=== PATIENT | female | born 1945 | race Caucasian/White ===

== ENCOUNTER 2018-12-12 23:26 | Inpatient (IN) ==
[2018-12-12] MEDS ORDERED: 0.9 % SODIUM CHLORIDE 1,000 ML IV ONE (23:28)
[2018-12-12 23:40] LABS: POC Blood Urea Nitrogen 46 mg/dl (8-23); POC CO2 28 mmol/L (22-30); POC Calcium, Ionized 1.11 mmol/L (1.16-1.32); POC Chloride 110 mmol/L (96-108); POC Creatinine 2.4 mg/dl (0.6-1.1); POC Glucose, Random 184 mg/dL (70-105); POC Potassium 4.4 mmol/L (3.3-5.1); POC Sodium 149 mmol/L (133-145)
[2018-12-12] MEDS ORDERED: DILTIAZEM 25 MG/5 ML VIAL IV ONE (23:44)
[2018-12-12] MEDS ORDERED: DILTIAZEM 125 MG in DEXTROSE 5% IN WATER 100 ML IV SCH (23:45)
[2018-12-12] MEDS ORDERED: LEVOFLOXACIN 750 MG/150 ML BAG IV ONE (23:47)
[2018-12-12] MEDS ORDERED: VANCOMYCIN 1,500 MG in 0.9 % SODIUM CHLORIDE 500 ML IV ONE (23:47)
--- NOTE | 2018-12-12 23:48 | Emergency Department Note ---
General Adult HPI - General Chief complaint: Shortness of Breath/Dyspnea Stated complaint: found down at home Time Seen by Provider: 12/12/18 23:43 Source: EMS Mode of arrival: EMS Limitations: no limitations - History of Present Illness HPI Narrative: This patient's family had not heard from her in today so they had the please check on her and they had a breakdown the door and found her on the floor. She may been there for 24 hours. She normally uses oxygen but did not have it on at the time. Patient is nonverbal at this time but is awake and can follow some basic commands like squeezing fingers and moving toes. She does have erythema of her right lower leg with warmth. - Related Data Home Medications Medication Instructions Recorded Confirmed blood sugar diagnostic strips 1 strip .ROUTE QIDP PRN 11/01/14 09/23/18 lancets 1 unit .ROUTE .MEDSUPPLY 11/01/14 09/23/18 oxygen-air delivery systems device 5 units INTRANASAL .MEDSUPPLY 11/01/14 09/23/18 Insulin Detemir [Levemir] 15 units SC QAM 01/17/15 09/23/18 methotrexate sodium 5 mg tablet 15 mg PO QWEEK tab 04/29/18 09/23/18 warfarin 3 mg tablet See Rx Instructions PO QDAY tab 04/29/18 09/23/18 Previous Rx's Medication Instructions Recorded front wheeled walker #1 each 03/05/15 Power Mobility WC #1 each 04/03/15 atenolol 25 mg tablet 25 mg PO QDAY #90 tab 07/06/15 blood sugar diagnostic strips See Dose Instructions .ROUTE 10/05/15 .MEDSUPPLY #100 each mometasone 0.1 % topical ointment 1 applic TOPICAL QDAY #45 g 04/01/16 betamethasone, augmented 0.05 % 1 applic TOPICAL BID PRN #135 g 04/02/16 topical ointment nebulizer #1 each 04/04/16 allopurinol 300 mg tablet 300 mg PO QHS #90 tab 06/29/17 bupropion HCl SR 150 mg tablet,12 150 mg PO BID #180 tab 06/29/17 hr sustained-release pramipexole 0.125 mg tablet 0.125 mg PO QDAY #90 tab 06/29/17 pravastatin 10 mg tablet 10 mg PO QDAY #90 tab 06/29/17 spironolactone 25 mg tablet 25 mg PO BID #180 tab 06/29/17 digoxin 250 mcg tablet 250 mcg PO QDAY #90 tab 10/27/17 warfarin 6 mg tablet 6 mg PO QDAY #90 tab 10/27/17 prednisone 10 mg tablet 7.5 mg PO Q2D #90 tab 11/09/17 hydroxyzine HCl 10 mg tablet 10 mg PO QID PRN #90 tab 01/05/18 coal tar 2 % topical ointment 1 applic TOPICAL QDAY #107 g 02/01/18 nystatin 100,000 unit/gram topical 1 applic TOPICAL BID PRN #15 each 02/01/18 powder pilocarpine 5 mg tablet 5 mg PO TID #90 tab 02/03/18 zolpidem 10 mg tablet 10 mg PO QHS #90 tab 02/03/18 hydrocodone 5 mg-acetaminophen 325 1 tab PO Q4H PRN #60 tab 04/16/18 mg tablet carbidopa 25 mg-levodopa 100 mg 1 tab PO QHS #90 tab 04/23/18 tablet furosemide 20 mg tablet 20 mg PO BID #180 tab 04/23/18 levothyroxine 125 mcg tablet 125 mcg PO QDAY #90 tab 04/23/18 losartan 100 1 tab PO QDAY #90 tab 04/23/18 mg-hydrochlorothiazide 25 mg tablet metoclopramide 10 mg tablet 10 mg PO BID #180 tab 04/23/18 pantoprazole 40 mg tablet,delayed 40 mg PO QDAY #90 tab 04/23/18 release albuterol sulfate 1.25 mg/3 mL 1.25 mg INHALATION Q6-8H #360 vial 04/26/18 solution for nebulization insulin glargine (U-100) 100 15 unit SUB-Q .COMPLEX #90 ml 04/28/18 unit/mL (3 mL) subcutaneous pen Disabled parking permit #1 ea 04/29/18 beclomethasone diprop 80 1 puff INHALATION Q12H #10.6 g 04/29/18 mcg/actuation HFA breath activated aerosol empagliflozin 25 mg tablet 25 mg PO QAM #90 tab 04/29/18 insulin lispro (U- 100) 100 See Rx Instructions SUB-Q .COMPLEX 04/29/18 unit/mL subcutaneous pen #105 ml Allergies Allergy/AdvReac Type Severity Reaction Status Date / Time Erythromycin Base AdvReac Mild Nausea Verified 12/13/18 07:08 [From Erythrocin] Review of Systems Limitations: ROS unobtainable due to patients medical condition Past Medical History - Past Medical History FOR[facility] Narrative: Medical History (Last Reviewed 09/23/18 @ 16:49 by OLIVIA Pelayo) Hiatal hernia (Chronic) KATY (obstructive sleep apnea) (Chronic) Right supraspinatus tendinitis (Chronic) Cellulitis (Chronic) Severe sepsis with acute organ dysfunction (Chronic) Diabetes follow-up (Chronic) Ankle fracture, right (Chronic) Low back strain (Chronic) Skin ulcer due to diabetes mellitus (Chronic) Restless leg syndrome (Chronic) Psoriasis (Chronic) Lung disease (Chronic) Hypertension, essential (Chronic) Hyperlipidemia (Chronic) Type 2 diabetes mellitus (Chronic) Cystitides, interstitial, chronic (Chronic) Congestive heart failure (Chronic) Chronic obstruct airways disease (Chronic) Atrial fibrillation (Chronic) Arthritis (Chronic) Anemia (Chronic) Acid reflux (Chronic) Depression (Acute) Hypercholesteremia (Acute) Recurrent infections (Acute) Sleep apnea (Chronic) Anticoagulation excessive (Resolved) Chest pain (Resolved) Chronic bronchitis with acute exacerbation (Resolved) Hematuria of undiagnosed cause (Resolved) Hypercholesterolemia (Resolved) Rheumatic fever (Resolved) Family History (Last Reviewed 09/23/18 @ 16:49 by OLIVIA Pelayo) Sister Malignant neoplasm of cervix Brother Chronic obstructive pulmonary disease Postinflammatory pulmonary fibrosis Unknown Type 2 diabetes mellitus Cardiac disease Medical history: Reports: atrial fibrillation, DM, other (Obstructive sleep apnea) Surgical history ED: Reports: non-contributory - Social History smoking status: Former smoker Alcohol use: Reports: None Physical Exam Limitations: no limitations General appearance: alert Head: atraumatic, normocephalic Eye: Present: PERRL, EOMI ENT: mucous membranes dry Neck: Present: normal inspection Chest: Present: normal inspection Respiratory: Present: normal lung sounds bilaterally Cardiovascular: Present: tachycardia, irregular rhythm, normal heart sounds Abdominal: Present: soft. Absent: distention, tenderness Skin: Present: erythema (Right lower leg) Course Vital Signs Temperature 101.6 F H 12/12/18 23:29 Pulse Rate 136 H 12/12/18 23:29 Respiratory Rate 32 H 12/12/18 23:29 Blood Pressure 176/54 12/12/18 23:29 Pulse Oximetry (%) 100 12/12/18 23:29 Temperature 101.6 F H 12/13/18 07:43 Pulse Rate 93 H 12/13/18 07:43 Respiratory Rate 26 H 12/13/18 07:43 Blood Pressure 142/59 12/13/18 07:31 Pulse Oximetry (%) 96 12/13/18 07:43 Medical Decision Making - MDM Narrative Medical decision making narrative: Patient initially was not very responsive but would follow commands her eyes were open but she had difficulty talking. This time went on she was able to whisper. Still very hard to get any significant history. CT scan of head was negative she does have a CK of 4000 with some renal insufficiency. Most likely prerenal and dehydrated. She does have what appears to be cellulitis of the right lower leg and we did start her on vancomycin and Rocephin after cultures. She will be admitted to the hospital by the hospitalist service. - Lab Data Lab results reviewed: Yes I reviewed the patient's lab results. Result diagrams: 12/13/18 06:42 12/13/18 23:34 Lab Results 12/12/18 12/12/18 12/12/18 Range/Units 23:34 23:34 23:34 WBC 35.6 H* (4.5-11.0) K/mcL RBC 3.36 L (4.00-5.20) M/mcL Hgb 10.0 L (12.0-15.0) g/dL Hct 32.2 L (36.0-48.0) % POC Hct 31.0 L (36.0-48.0) % MCV 95.9 (80.0-100.0) fL MCH 29.6 (26.0-34.0) pg MCHC 30.9 L (31.0-36.0) g/dL RDW 23.7 H (11.5-14.5) % Plt Count 288 (140-440) K/mcL MPV 8.3 (7.4-10.4) fL Total Counted 100 Seg Neutrophils % 90 H (38-78) % Band Neutrophils % 3 (0-10) % Lymphocytes % 2 L (15-49) % Monocytes % (Manual) 5 (1-12) % Platelet Estimate Normal (NORMAL) RBC Morphology Abnorm A (NORMAL) Polychromasia 1+ A (NONE SEEN) Anisocytosis 2+ A (NONE SEEN) PT (11.9-14.5) sec INR (0.9-1.1) VBG Lactic Acid 1.2 (0.5-2.0) mmol/L POC Sodium 149 H (133-145) mmol/L POC Potassium 4.4 (3.3-5.1) mmol/L POC Chloride 110 H (96-108) mmol/L POC Total CO2 28 (22-30) mmol/L POC BUN 46 H (8-23) mg/dl POC Creatinine 2.4 H (0.6-1.1) mg/dl POC Glucose 184 H (70-105) mg/dL POC WB Ioniz Calcium 1.11 L (1.16-1.32) mmol/L Total Creatine Kinase (24-170) IU/L Urine Color Urine Appearance Urine pH (5.0-9.0) Ur Specific [place] (1.000-1.035) Urine Protein (NEG) mg/dL Urine Glucose (UA) (NEG) mg/dL Urine Ketones (NEG) mg/dL Urine Occult Blood (<0.03) mg/dL Urine Nitrate (NEG) Urine Bilirubin (NEG) mg/dL Urine Urobilinogen (NEG) mg/dL Ur Leukocyte Esterase (NEG) /uL Urine RBC (0-1) /hpf Urine WBC (0-4) /hpf Ur Squamous Epith Cells (0-4) /hpf Amorphous Crystals (0) /hpf Urine Bacteria (0) /hpf Hyaline Casts (0-2) /lpf Urine Mucus (0) /hpf Ur Culture Indicated? 12/12/18 12/12/18 12/13/18 Range/Units 23:34 23:34 00:20 WBC (4.5-11.0) K/mcL RBC (4.00-5.20) M/mcL Hgb (12.0-15.0) g/dL Hct (36.0-48.0) % POC Hct (36.0-48.0) % MCV (80.0-100.0) fL MCH (26.0-34.0) pg MCHC (31.0-36.0) g/dL RDW (11.5-14.5) % Plt Count (140-440) K/mcL MPV (7.4-10.4) fL Total Counted Seg Neutrophils % (38-78) % Band Neutrophils % (0-10) % Lymphocytes % (15-49) % Monocytes % (Manual) (1-12) % Platelet Estimate (NORMAL) RBC Morphology (NORMAL) Polychromasia (NONE SEEN) Anisocytosis (NONE SEEN) PT 20.4 H (11.9-14.5) sec INR 1.8 H (0.9-1.1) VBG Lactic Acid (0.5-2.0) mmol/L POC Sodium (133-145) mmol/L POC Potassium (3.3-5.1) mmol/L POC Chloride (96-108) mmol/L POC Total CO2 (22-30) mmol/L POC BUN (8-23) mg/dl POC Creatinine (0.6-1.1) mg/dl POC Glucose (70-105) mg/dL POC WB Ioniz Calcium (1.16-1.32) mmol/L Total Creatine Kinase 4626 H (24-170) IU/L Urine Color Yellow Urine Appearance Clear Urine pH 6.0 (5.0-9.0) Ur Specific [place] 1.018 (1.000-1.035) Urine Protein 100 A (NEG) mg/dL Urine Glucose (UA) >=500 A (NEG) mg/dL Urine Ketones 5/tr A (NEG) mg/dL Urine Occult Blood >=1.0 A (<0.03) mg/dL Urine Nitrate Neg (NEG) Urine Bilirubin Neg (NEG) mg/dL Urine Urobilinogen Neg (NEG) mg/dL Ur Leukocyte Esterase Neg (NEG) /uL Urine RBC 2 H (0-1) /hpf Urine WBC 3 (0-4) /hpf Ur Squamous Epith Cells < 1 (0-4) /hpf Amorphous Crystals Few A (0) /hpf Urine Bacteria 0 (0) /hpf Hyaline Casts 2 (0-2) /lpf Urine Mucus Few (0) /hpf Ur Culture Indicated? No - Radiology Data Radiology results reviewed: Yes I reviewed the patient's radiology results. Disposition Pt seen by BENDING MACHINE SET UP OPERATOR/PA only: No Clinical Impression: Cellulitis, Rhabdomyolysis Atrial fibrillation Qualifiers: Atrial fibrillation type: persistent Qualified Code(s): I48.1 - Persistent atrial fibrillation Disposition: Xfer As Inpt ([facility])
[2018-12-13 00:24] LABS: Hematocrit 32.2 % (36.0-48.0); Mean Cell Volume 95.9 fL (80.0-100.0); Mean Corpuscular HGB Conc 30.9 g/dL (31.0-36.0); Mean Platelet Volume 8.3 fL (7.4-10.4); Platelet Count 288 K/mcL (140-440); RBC 3.36 M/mcL (4.00-5.20); Red Cell Distribution Width 23.7 % (11.5-14.5); WBC 35.6 K/mcL (4.5-11.0)
[2018-12-13] MEDS ORDERED: 0.9 % SODIUM CHLORIDE 1,000 ML IV ONE (00:29)
[2018-12-13 00:49] LABS: INR 1.8 (0.9-1.1); Prothrombin Time 20.4 sec (11.9-14.5)
[2018-12-13 00:56] LABS: Anisocytosis 2+ (NONE SEEN); Band Neutrophils % 3 % (0-10); Lymphocytes % 2 % (15-49); Monocytes % (Manual) 5 % (1-12); Platelet Estimate NORMAL (NORMAL); Polychromasia 1+ (NONE SEEN); RBC Morphology ABNORM (NORMAL); Segmented Neutrophils % 90 % (38-78)
[2018-12-13 01:02] LABS: Appearance,Urine CLEAR; Bacteria,Urine 0 /hpf (0); Bilirubin,Urine NEG (NEG); Color,Urine YELLOW; Culture Indicated,Urine NO; Glucose,Urine (UA) >=500 mg/dL (NEG); Ketones,Urine 5/TR mg/dL (NEG); Leukocyte Esterase,Urine NEG /uL (NEG); Mucus,Urine FEW /hpf (0); Nitrate,Urine NEG (NEG); Protein,Urine 100 mg/dL (NEG); Specific Gravity,Urine 1.018 (1.000-1.035); Urine Amorphous Crystals FEW /hpf (0); Urine Blood >=1.0 mg/dL (<0.03); Urine Hyaline Cast 2 /lpf (0-2); Urine RBC 2 /hpf (0-1); Urine Squamous Epithelial Cell < 1 /hpf (0-4); Urine WBC 3 /hpf (0-4); Urobilinogen,Urine NEG (NEG)
[2018-12-13 02:56] LABS: ALT/SGPT 39 U/l (0-40); AST/SGOT 145 U/l (0-37); Albumin 3.7 gm/dL (3.2-5.2); Albumin/Globulin Ratio 0.9 (1.0-2.3); Alkaline Phosphatase 117 U/L (39-117); Bilirubin,Total 0.6 mg/dL (0.0-1.0); Blood Urea Nitrogen 48 mg/dl (8-23); Calcium 9.5 mg/dl (8.6-10.4); Carbon Dioxide 23 mmol/L (22-30); Chloride 107 mmol/L (96-108); Globulin 3.9 gm/dL (2.2-3.7); Glomerular Filtration Rate 25; Glucose 176 mg/dL (70-105)
[2018-12-13] MEDS ORDERED: DILTIAZEM 125 MG/25 ML VIAL IV ONE (05:42)
[2018-12-13] MEDS ORDERED: IPRATROPIUM/ALBUTEROL 3 ML AMPUL.NEB NEB ONE (05:51)
[2018-12-13] MEDS ORDERED: PIPERACILLIN SODIUM/TAZOBACTAM 3.375 GM in DEXTROSE 5% IN WATER 50 ML IV SCH (06:00)
[2018-12-13] MEDS ORDERED: LABETALOL 5 MG/ML ML IV PRN ×2 (06:17→09:21)
[2018-12-13] MEDS ORDERED: ACETAMINOPHEN 650 MG/65 ML BOTTLE IV PRN (06:17)
[2018-12-13] MEDS ORDERED: hydrALAZINE 20 MG/ML VIAL IV PRN ×2 (06:17→06:18)
[2018-12-13] MEDS ORDERED: METOPROLOL TARTRATE 5 MG/5 ML VIAL IV PRN ×2 (06:20→09:21)
[2018-12-13] MEDS ORDERED: 0.9 % SODIUM CHLORIDE 1,000 ML IV SCH (07:00)
--- NOTE | 2018-12-13 07:01 | Internal Med History&Physical ---
Medical - H&P: [facility] Patient information: Note initiated : 12/13/18 at 6:47 am Service Date, if different from initiated Date: [] Patient: Mayra Blood 72 y/o F admitted on 12/13/18 for found down at home. Chief Complaint: [] History of present illness: Ms. Blood is a 72 year old F Whose family had not heard from her during the day so they had the police check on her and she was found down on the floor. It was felt she likely benefit 24 hours. She is normally on oxygen but did not have her oxygen on. Heart rate was 140 she has a history of A. fib and EMS had a temperature 101.6. In the ED she was evaluated she is nonverbal but awake and follows basic commands and also was noted to have erythema of her right lower extremity (of note she has had right lower extremity cellulitis in the past with sepsis on an inpatient note from the January 2015). History is difficult to obtain from patient. Sounds like she lives with her sister but she did state that her sister is out of town. Patient does not not remember where she fell in the house or when. Denies any hip or leg pain. Denies fever chills chest pain shortness of breath coughing. Right lower leg is red and she had a history of cellulitis treated in that right leg before 4 years ago. But she denies any tenderness in that leg. And it looks more chronic acute cellulitic. Patient states her right lower extremity is always red. She is slow to answer but does answer most questions and whisper. In the ED she was found to have been myelolysis and acute kidney injury and a leukocytosis. Review of Systems: Pertinent positives as above. Denies headache/fever/chills/nausea/vomiting/chest or abdominal pain/cough/dyspnea/diar yue. Remaining 10 point review of system reviewed negative Medical - H&P: PMH Medical history: Medical History (Last Reviewed 09/23/18 @ 16:49 by OLIVIA Pelayo) Hiatal hernia (Chronic) KATY (obstructive sleep apnea) (Chronic) Right supraspinatus tendinitis (Chronic) Cellulitis (Chronic) Severe sepsis with acute organ dysfunction (Chronic) Diabetes follow-up (Chronic) Ankle fracture, right (Chronic) Low back strain (Chronic) Skin ulcer due to diabetes mellitus (Chronic) Restless leg syndrome (Chronic) Psoriasis (Chronic) Lung disease (Chronic) Hypertension, essential (Chronic) Hyperlipidemia (Chronic) Type 2 diabetes mellitus (Chronic) Cystitides, interstitial, chronic (Chronic) Congestive heart failure (Chronic) Chronic obstruct airways disease (Chronic) Atrial fibrillation (Chronic) Arthritis (Chronic) Anemia (Chronic) Acid reflux (Chronic) Depression (Acute) Hypercholesteremia (Acute) Recurrent infections (Acute) Sleep apnea (Chronic) Anticoagulation excessive (Resolved) Chest pain (Resolved) Chronic bronchitis with acute exacerbation (Resolved) Hematuria of undiagnosed cause (Resolved) Hypercholesterolemia (Resolved) Rheumatic fever (Resolved) Past surgical history: She could not tell me about any surgeries Family History (Last Reviewed 09/23/18 @ 16:49 by OLIVIA Pelayo) Sister Malignant neoplasm of cervix Brother Chronic obstructive pulmonary disease Postinflammatory pulmonary fibrosis Unknown Type 2 diabetes mellitus Cardiac disease Social history: Distant smoker Tonight denies alcohol use Denies using cane or walker at home Lives at home with her sister but states her sister is out of town Medical - H&P: Meds Home Medications Medication Instructions Recorded Confirmed Type blood sugar diagnostic strips 1 strip .ROUTE QIDP PRN 11/01/14 09/23/18 History lancets 1 unit .ROUTE .MEDSUPPLY 11/01/14 09/23/18 History oxygen-air delivery systems device 5 units INTRANASAL .MEDSUPPLY 11/01/14 05/0 02/03 History Insulin Detemir [Levemir] 15 units SC QAM 01/17/15 09/23/18 History front wheeled walker #1 each 03/05/15 09/23/18 Rx Power Mobility WC #1 each 04/03/15 09/23/18 Rx atenolol 25 mg tablet 25 mg PO QDAY #90 tab 07/06/15 09/23/18 Rx blood sugar diagnostic strips See Dose Instructions .ROUTE 10/05/15 09/23/18 Rx .MEDSUPPLY #100 each mometasone 0.1 % topical ointment 1 applic TOPICAL QDAY #45 g 04/01/16 09/23/18 Rx betamethasone, augmented 0.05 % 1 applic TOPICAL BID PRN #135 g 04/02/16 09/23/18 Rx topical ointment nebulizer #1 each 04/04/16 09/23/18 Rx allopurinol 300 mg tablet 300 mg PO QHS #90 tab 06/29/17 09/23/18 Rx bupropion HCl SR 150 mg tablet,12 150 mg PO BID #180 tab 06/29/17 09/23/18 Rx hr sustained-release pramipexole 0.125 mg tablet 0.125 mg PO QDAY #90 tab 06/29/17 09/23/18 Rx pravastatin 10 mg tablet 10 mg PO QDAY #90 tab 06/29/17 09/23/18 Rx spironolactone 25 mg tablet 25 mg PO BID #180 tab 06/29/17 09/23/18 Rx digoxin 250 mcg tablet 250 mcg PO QDAY #90 tab 10/27/17 09/23/18 Rx warfarin 6 mg tablet 6 mg PO QDAY #90 tab 10/27/17 09/23/18 Rx prednisone 10 mg tablet 7.5 mg PO Q2D #90 tab 11/09/17 09/23/18 Rx hydroxyzine HCl 10 mg tablet 10 mg PO QID PRN #90 tab 01/05/18 09/23/18 Rx coal tar 2 % topical ointment 1 applic TOPICAL QDAY #107 g 02/01/18 09/23/18 Rx nystatin 100,000 unit/gram topical 1 applic TOPICAL BID PRN #15 each 02/01/18 09/23/18 Rx powder pilocarpine 5 mg tablet 5 mg PO TID #90 tab 02/03/18 09/23/18 Rx zolpidem 10 mg tablet 10 mg PO QHS #90 tab 02/03/18 09/23/18 Rx hydrocodone 5 mg-acetaminophen 325 1 tab PO Q4H PRN #60 tab 04/16/18 09/23/18 Rx mg tablet carbidopa 25 mg-levodopa 100 mg 1 tab PO QHS #90 tab 04/23/18 09/23/18 Rx tablet furosemide 20 mg tablet 20 mg PO BID #180 tab 04/23/18 09/23/18 Rx levothyroxine 125 mcg tablet 125 mcg PO QDAY #90 tab 04/23/18 09/23/18 Rx losartan 100 1 tab PO QDAY #90 tab 04/23/18 09/23/18 Rx mg-hydrochlorothiazide 25 mg tablet metoclopramide 10 mg tablet 10 mg PO BID #180 tab 04/23/18 09/23/18 Rx pantoprazole 40 mg tablet,delayed 40 mg PO QDAY #90 tab 04/23/18 09/23/18 Rx release albuterol sulfate 1.25 mg/3 mL 1.25 mg INHALATION Q6-8H #360 vial 04/26/18 09/23/18 Rx solution for nebulization insulin glargine (U-100) 100 15 unit SUB-Q .COMPLEX #90 ml 04/28/18 09/23/18 Rx unit/mL (3 mL) subcutaneous pen Disabled parking permit #1 ea 04/29/18 09/23/18 Rx beclomethasone diprop 80 1 puff INHALATION Q12H #10.6 g 04/29/18 09/23/18 Rx mcg/actuation HFA breath activated aerosol empagliflozin 25 mg tablet 25 mg PO QAM #90 tab 04/29/18 09/23/18 Rx insulin lispro (U- 100) 100 See Rx Instructions SUB-Q .COMPLEX 04/29/18 09/23/18 Rx unit/mL subcutaneous pen #105 ml methotrexate sodium 5 mg tablet 15 mg PO QWEEK tab 04/29/18 09/23/18 History warfarin 3 mg tablet See Rx Instructions PO QDAY tab 04/29/18 09/23/18 History Allergies Allergy/AdvReac Type Severity Reaction Status Date / Time Erythromycin Base AdvReac Mild Nausea Verified 12/13/18 07:08 [From Erythrocin] Medical - H&P: Exam - Constitutional Vitals: Temp Pulse Resp BP Pulse Ox 102.4 F H 112 H 39 H 182/70 96 12/13/18 06:36 12/13/18 06:36 12/13/18 06:36 12/13/18 06:31 12/13/18 06:36 Exam: General: Alert, Awake, No acute Distress, obese Eyes/N/T: EOMI, PEERL, DMM Head/Neck: neck supple, normocephalic atraumatic CV: RRR, No murmurs, normal s1/s2 Pulm: Fine bibasilar rales, no wheezing Abd: soft, nontender, +BS x4 Ext: no clubbing/cyanosis/edema. Right lower extremity with erythema but is not indurated/swollen/or tender, appears chronic in nature. Neuro: Alert, no focal deficits, moves all extremities, CN 2-12 grossly intact, symmetrical strength b/l upper/lower, sensations intact b/l upper/lower Skin: warm/dry Medical - H&P: Reslt - Labs CBC & Chem 7: 12/13/18 06:42 12/13/18 23:34 Labs: Short CBC 12/12/18 Range/Units 23:34 WBC 35.6 H* (4.5-11.0) K/mcL Hgb 10.0 L (12.0-15.0) g/dL Hct 32.2 L (36.0-48.0) % Plt Count 288 (140-440) K/mcL BMP 12/13/18 23:34 Sodium 148 H Potassium 5.0 Chloride 107 Carbon Dioxide 23 BUN 48 H Creatinine 2.0 H Glucose 176 H Calcium 9.5 Cardiac Enzymes 12/12/18 Range/Units 23:34 Total Creatine Kinase 4626 H (24-170) IU/L Liver Function 12/13/18 Range/Units 23:34 Total Bilirubin 0.6 (0.0-1.0) mg/dL AST 145 H (0-37) U/l ALT 39 (0-40) U/l Alkaline Phosphatase 117 (39-117) U/L Albumin 3.7 (3.2-5.2) gm/dL Urine 12/13/18 Range/Units 00:20 Urine Color Yellow Urine Appearance Clear Urine pH 6.0 (5.0-9.0) Ur Specific [place] 1.018 (1.000-1.035) Urine Protein 100 A (NEG) mg/dL Urine Glucose (UA) >=500 A (NEG) mg/dL - Impressions Chest x-ray with bilateral infiltrates, similar image of previous x-rays. patient does have history of interstitial lung disease Medical - H&P: A/P - Narrative A/P Narrative: A: *Fall at home, unwitnessed: *Rhabdomyolysis: 2/2 above with prolonged downtime *Hypernatremia/dehydration: *Fever: 2/2 rhabdo *MARILYN on CKD IIIb (base Cr~1.6): 2/2 above *RLE chronic erythema: Not tender/indurated/swollen, patient stated leg always red -does not look cellulitic, no compartment syndrome *Anemia, chronic: *Volume Depletion: *Generalized weakness/debility/deconditioning *KATY on BiPAP at night: *COPD (? L NC @home)/ILD: Follows with Dr. Long. Steroid-dependent *Immunosuppression, chronic steroids: *Psoriasis: on MTX *Parkinson's: *DM: *Afib w/RVR: on BB/Warfarin/Dig *HTN/HLD: ARB/BB *Morbid obesity: *Depression/anxiety *GERD: *Hypothyroid: *Chronic leukocytosis: Elevated above baseline, no bandemia P: -IVF's, NS in ED, now 1/2NS, f/u Na -monitor UOP/renal fxn -wean off dilt gtt to home meds -empiric Abx pending BC and PCT -cont steroids(will give stress dose) -cont BB/Dig -hold ARB/diuretics for MARILYN and volume depletion -home o2 with home bipap @night, Nebs -basal insulin and SSI -awaiting home med clarification -pt/ot -ppx: warfarin per pharm/home ppi
[2018-12-13] MEDS ORDERED: ALBUTEROL SULFATE 2.5 MG/3 ML NEBULIZER ONE (07:02)
[2018-12-13] MEDS ORDERED: 0.45 % SODIUM CHLORIDE 1,000 ML IV SCH (07:15)
[2018-12-13] MEDS ORDERED: INSULIN LISPRO 1 UNIT/0.01 ML UNIT SQ SCH (07:30)
[2018-12-13 07:32] LABS: Hematocrit 30.4 % (36.0-48.0); Hemoglobin 9.5 g/dL (12.0-15.0); Mean Cell Volume 95.5 fL (80.0-100.0); Mean Corpuscular HGB Conc 31.3 g/dL (31.0-36.0); Mean Platelet Volume 8.7 fL (7.4-10.4); Platelet Count 245 K/mcL (140-440); RBC 3.18 M/mcL (4.00-5.20); Red Cell Distribution Width 23.7 % (11.5-14.5); WBC 31.7 K/mcL (4.5-11.0)
--- NOTE | 2018-12-13 07:44 | XRay Report ---
CLINICAL INFORMATION: sob COMPARISON: 01/19/2015 FINDINGS: Moderate cardiomegaly is unchanged. Mediastinum is unremarkable. Pulmonary vessels are slightly distended. Mild interstitial disease in the mid /lower lung jefferson as within seen on prior examinations likely represents minor fibrosis rather than edema. There is minor atelectasis or scarring in the right base. Probable small right pleural effusion. IMPRESSION: Borderline CHF or volume overload. Interpreted and Authenticated by: Brett Martínez 12/13/18
[2018-12-13 07:46] LABS: Digoxin 0.7 ng/mL
--- NOTE | 2018-12-13 07:55 | XRay Report ---
CLINICAL INFORMATION: Shortness of breath COMPARISON: 12/13/2018 and 01/19/2015 FINDINGS: Moderate cardiomegaly is unchanged. Mediastinum is unremarkable. Pulmonary vessels are moderately distended and there is mild interstitial edema throughout both lungs. Minor airspace disease in the bases has progressed likely representing atelectasis or developing aspiration pneumonia. Small bilateral pleural effusions noted IMPRESSION: 1. Moderate CHF 2. Moderate patchy bibasilar atelectasis and/or developing infiltrate. Interpreted and Authenticated by: Brett Martínez 12/13/18
[2018-12-13 08:09] LABS: Anisocytosis 2+ (NONE SEEN); Hypochromasia FEW (NONE SEEN); Lymphocytes % 1 % (15-49); Monocytes % (Manual) 3 % (1-12); Nucleated Red Blood Cells 1 % (0-0); Platelet Estimate NORMAL (NORMAL); Polychromasia FEW (NONE SEEN); RBC Morphology ABNORM (NORMAL); Segmented Neutrophils % 96 % (38-78)
[2018-12-13] MEDS ORDERED: HYDROCORTISONE SOD SUCC 100 MG VIAL IV ONE (08:25)
[2018-12-13 08:28] LABS: INR 2.1 (0.9-1.1); Prothrombin Time 23.4 sec (11.9-14.5)
--- NOTE | 2018-12-13 08:29 | Cat Scan Report ---
CLINICAL INFORMATION: Trauma] on anticoagulation COMPARISON: None. TECHNIQUE: 2.5 mm helical slices were obtained in the skull base to vertex. Following reconstruction, axial reformatted images were reviewed at bone and parenchymal windows. The exam was performed using radiation dose optimization techniques including, but not limited to, automated exposure control, adjustment of the mA and/or kV according to patient size and use of iterative reconstruction technique. FINDINGS: The ventricles, sulci, fissures, and cisterns are symmetrically enlarged compatible with moderate age-related atrophy - no subdural hemorrhage or other extra-axial fluid collection appreciated. Mild patchy chronic ischemic changes in the deep cerebral white matter expected are for age. There are also scattered remote lacunar infarcts in the basal ganglia and internal capsule regions. There is no intracerebral hemorrhage, mass effect, edema or other posttraumatic/acute change. A 15.7 mm well-circumscribed partially calcified nodule in the left frontoparietal scalp region, near vertex, is almost certainly a benign partially calcified cyst. Moderate degenerative change in the right TMJ appreciated - no other osseous abnormality. IMPRESSION: Moderate atrophy and chronic ischemic changes in that the cerebral white matter - expected for age. Scattered remote lacunar infarcts in basal ganglia and internal capsule. There is no intracerebral hemorrhage or other posttraumatic change 15.7 mm partially calcified cystic lesion in the left frontoparietal scalp near vertex. This should be obvious clinically. If clinically indicated, it could be excised by general surgery. Moderate degeneration - right TMJ Tiny air-fluid level in sphenoid sinus compatible with mild sinusitis Interpreted and Authenticated by: Brett Martínez 12/13/18
[2018-12-13 08:44] LABS: ALT/SGPT 39 U/l (0-40); AST/SGOT 142 U/l (0-37); Albumin 3.1 gm/dL (3.2-5.2); Albumin/Globulin Ratio 0.8 (1.0-2.3); Alkaline Phosphatase 81 U/L (39-117); Bilirubin,Direct < 0.2 mg/dL (0.0-0.3); Bilirubin,Total 0.4 mg/dL (0.0-1.0); Blood Urea Nitrogen 43 mg/dl (8-23); Calcium 8.8 mg/dl (8.6-10.4); Carbon Dioxide 23 mmol/L (22-30); Chloride 113 mmol/L (96-108); Globulin 3.7 gm/dL (2.2-3.7); Glomerular Filtration Rate 28; Glucose 178 mg/dL (70-105); Lactate Dehydrogenase 372 U/L (94-250); Phosphorous 3.9 mg/dL (2.7-4.5); Triglycerides 210 mg/dl (<150); Uric Acid 8.1 mg/dL (2.5-8.0)
[2018-12-13] MEDS ORDERED: POLYETHYLENE GLYCOL 3350 17 GM PACKET PO PRN (09:21)
[2018-12-13] MEDS ORDERED: SENNOSIDES 1 TABLET PO PRN (09:21)
[2018-12-13] MEDS ORDERED: POTASSIUM CHLORIDE 40 MEQ in DEXTROSE 5% IN WATER 500 ML IV PRN (09:21)
[2018-12-13] MEDS ORDERED: IPRATROPIUM/ALBUTEROL 3 ML AMPUL.NEB NEB PRN (09:21)
[2018-12-13] MEDS ORDERED: PROCHLORPERAZINE 10 MG/2 ML VIAL IV PRN (09:21)
[2018-12-13] MEDS ORDERED: MAGNESIUM SULFATE 2 GM/50 ML BAG IV PRN (09:21)
[2018-12-13] MEDS ORDERED: POTASSIUM CHLORIDE 20 MEQ TABLET PO PRN ×2 (09:21)
[2018-12-13] MEDS ORDERED: LACTULOSE 20 GM/30 ML ORAL.SOL PO PRN (09:21)
[2018-12-13] MEDS ORDERED: ONDANSETRON 4 MG/2 ML VIAL IV PRN (09:21)
[2018-12-13] MEDS ORDERED: HYDROcodone/APAP 5/325MG TABLET PO PRN (10:13)
[2018-12-13] MEDS ORDERED: VANCOMYCIN PER PHARMACY IV SCH (10:16)
[2018-12-13] MEDS: DEXTROSE 5% IN WATER 1,000 ML IV SCH ×2 (10:16→20:05)
[2018-12-13] MEDS ORDERED: ALBUTEROL SULFATE 2.5 MG/3 ML NEBULIZER NEB PRN (10:30)
[2018-12-13] MEDS ORDERED: VANCOMYCIN 1,500 MG in 0.9 % SODIUM CHLORIDE 500 ML IV SCH (11:00)
[2018-12-13] MEDS: PIPERACILLIN SODIUM/TAZOBACTAM 3.375 GM in DEXTROSE 5% IN WATER 50 ML IV SCH ×2 (11:56→18:19)
[2018-12-13] MEDS: DOCUSATE SODIUM 100 MG CAPSULE PO SCH ×2 (12:05→21:48)
[2018-12-13] MEDS: INSULIN LISPRO 1 UNIT/0.01 ML UNIT SQ SCH ×3 (12:06→21:16)
[2018-12-13] MEDS: ACETAMINOPHEN 650 MG/65 ML BOTTLE IV PRN (12:39)
[2018-12-13] MEDS: 0.9 % SODIUM CHLORIDE 10 ML SYRINGE IV SCH ×4 (13:10→23:08)
[2018-12-13] MEDS: HYDROCORTISONE SOD SUCC 100 MG VIAL IV SCH ×2 (13:33→23:08)
[2018-12-13] MEDS: DIGOXIN 125 MCG TABLET PO SCH (13:38)
[2018-12-13] MEDS ORDERED: HYDROCORTISONE SOD SUCC 100 MG VIAL IV SCH (14:00)
[2018-12-13] MEDS ORDERED: WARFARIN 3 MG TABLET PO ONE (14:00)
[2018-12-13] MEDS: DILTIAZEM 125 MG in DEXTROSE 5% IN WATER 100 ML IV SCH (15:44)
[2018-12-13] MEDS ORDERED: ZOLPIDEM 5 MG TABLET PO SCH (21:00)
[2018-12-13] MEDS ORDERED: FAMOTIDINE/PF 20 MG/2 ML VIAL IV SCH (21:00)
[2018-12-13] MEDS ORDERED: ALLOPURINOL 100 MG TABLET PO SCH (21:00)
[2018-12-13] MEDS ORDERED: CARBIDOPA/LEVODOPA 25/100 TABLET PO SCH (21:00)
[2018-12-13] MEDS: buPROPion 150 MG TAB.SR.12H PO SCH (21:16)
[2018-12-13] MEDS: BECLOMETHASONE INH SCH (22:51)
[2018-12-13 23:24] LABS: Blood Urea Nitrogen 36 mg/dl (8-23); Carbon Dioxide 24 mmol/L (22-30); Chloride 110 mmol/L (96-108); Glomerular Filtration Rate 28; Glucose 204 mg/dL (70-105)
[2018-12-13 23:43] LABS: Creatine Kinase 3177 IU/L (24-170)
[2018-12-14] MEDS: PIPERACILLIN SODIUM/TAZOBACTAM 3.375 GM in DEXTROSE 5% IN WATER 50 ML IV SCH ×5 (00:03→23:59)
[2018-12-14] MEDS: DILTIAZEM 125 MG in DEXTROSE 5% IN WATER 100 ML IV SCH (00:06)
[2018-12-14] MEDS: DEXTROSE 5% IN WATER 1,000 ML IV SCH ×3 (00:08→16:21)
[2018-12-14] MEDS: hydrALAZINE 20 MG/ML VIAL IV PRN ×3 (01:02→03:53)
[2018-12-14] MEDS: ACETAMINOPHEN 650 MG/65 ML BOTTLE IV PRN (01:03)
[2018-12-14 05:57] LABS: Basophils # (Auto) 0 K/mcL (0.0-0.3); Basophils % (Auto) 0 % (0.0-2.0); Eosinophils # (Auto) 0 K/mcL (0.0-0.7); Eosinophils % (Auto) 0 % (0.0-7.0); Hematocrit 27.8 % (36.0-48.0); Hemoglobin 8.6 g/dL (12.0-15.0); Lymphocytes # (Auto) 0.6 K/mcL (1.5-4.8); Lymphocytes % (Auto) 2.9 % (15.5-49.0); Mean Cell Volume 97.3 fL (80.0-100.0); Mean Corpuscular HGB Conc 31.1 g/dL (31.0-36.0); Mean Platelet Volume 8.7 fL (7.4-10.4); Monocytes # (Auto) 0.7 K/mcL (0.1-0.9); Monocytes % (Auto) 3.1 % (1.0-12.0); Platelet Count 216 K/mcL (140-440); RBC 2.86 M/mcL (4.00-5.20); Red Cell Distribution Width 23.5 % (11.5-14.5); WBC 22.4 K/mcL (4.5-11.0)
[2018-12-14 06:09] LABS: INR 3.3 (0.9-1.1); Prothrombin Time 33.4 sec (11.9-14.5)
[2018-12-14] MEDS: 0.9 % SODIUM CHLORIDE 10 ML SYRINGE IV SCH ×5 (06:14→22:58)
[2018-12-14] MEDS: HYDROCORTISONE SOD SUCC 100 MG VIAL IV SCH (06:21)
[2018-12-14 06:37] LABS: ALT/SGPT 9 U/l (0-40); AST/SGOT 94 U/l (0-37); Albumin 3.1 gm/dL (3.2-5.2); Albumin/Globulin Ratio 0.8 (1.0-2.3); Alkaline Phosphatase 74 U/L (39-117); Bilirubin,Direct < 0.2 mg/dL (0.0-0.3); Bilirubin,Total 0.4 mg/dL (0.0-1.0); Blood Urea Nitrogen 32 mg/dl (8-23); C-Reactive Protein 29.5 mg/dl (0.0-0.8); Carbon Dioxide 23 mmol/L (22-30); Chloride 113 mmol/L (96-108); Globulin 3.7 gm/dL (2.2-3.7); Glomerular Filtration Rate 30; Glucose 147 mg/dL (70-105); Lactate Dehydrogenase 310 U/L (94-250); Phosphorous 1.7 mg/dL (2.7-4.5); Triglycerides 236 mg/dl (<150); Uric Acid 5.8 mg/dL (2.5-8.0)
--- NOTE | 2018-12-14 07:18 | Internal Med Progress Note ---
Medical - PN: Subj Patient information: Note initiated : 12/14/18 at 7:17 am Service Date, if different from initiated Date: [] Patient: Mayra Blood 72 y/o F admitted on 12/13/18 for Found Down At Home. Chief Complaint: [] Interval history: Ms. Blood is a 72 year old F Whose family had not heard from her during the day so they had the police check on her and she was found down on the floor. It was felt she likely benefit 24 hours. She is normally on oxygen but did not have her oxygen on. Heart rate was 140 she has a history of A. fib and EMS had a temperature 101.6. In the ED she was evaluated she is nonverbal but awake and follows basic commands and also was noted to have erythema of her right lower extremity (of note she has had right lower extremity cellulitis in the past with sepsis on an inpatient note from the January 2015). History is difficult to obtain from patient. Sounds like she lives with her sister but she did state that her sister is out of town. Patient does not not remember where she fell in the house or when. Denies any hip or leg pain. Denies fever chills chest pain shortness of breath coughing. Right lower leg is red and she had a history of cellulitis treated in that right leg before 4 years ago. But she denies any tenderness in that leg. And it looks more chronic acute cellulitic. Patient states her right lower extremity is always red. She is slow to answer but does answer most questions and whisper. In the ED she was found to have been rhabdomyolysis with acute kidney injury and leukocytosis. She did state to nurse later that she fell on Thursday. 12/14 Feeling better. Mentally clear today, answering questions appropriately. States had a headache last night but none today. States she uses 2 L of oxygen day and night. She has a bit of a dry cough. Right leg is red but not tender, she denies any being red at home normally. Review of Systems: denies fever/chills/nausea/vomiting/chest or abdominal pain/cough/dyspnea/diarrhea. Otherwise see above. - Constitutional Vitals: Vital Signs Temp Pulse Resp BP Pulse Ox 99.5 F H 91 H 27 H 158/79 98 12/14/18 06:01 12/14/18 06:01 12/14/18 06:01 12/14/18 06:01 12/14/18 06:01 Period Temp Pulse Resp BP Sys/Jacobson Pulse Ox Last 24 Hr 99.5 F-102.0 F 58-146 14-27 125-184/48-126 91-100 Intake and Output 12/13/18 12/14/18 12/14/18 21:59 05:59 13:59 Intake Total 1363 861 Output Total 890 740 80 Balance 473 121 -80 Weight 122.289 kg Intake & Output: Intake & Output 12/13/18 12/14/18 12/14/18 21:59 05:59 13:59 Intake Total 1363 861 Output Total 890 740 80 Balance 473 121 -80 Weight 122.289 kg Intake: IV 1243 621 Dextrose 5% in Water 1,000 ml @ 765 506 125 mls/hr IV .Q8H MARIO Rx#: [id number] Zosyn 3.375 gm In Dextrose 5% 50 50 in Water 50 ml @ 100 mls/hr IV Q6H MARIO Rx#:[id number] Vancomycin 1,500 mg In Sodium 421 Chloride 0.9% 500 ml @ 333.3 mls/hr IV DAILY MARIO Rx#: [id number] Oral 120 240 Output: Urine Catheter Amount 890 740 80 Other: Meal Dinner Percent of Meal Consumed 100% Feeding Ability Needs Supervision Urine Appearance Clear Uretheral (Fernandez) Clear Clear Urine Color Bright Yellow Urine Odor Normal Exam: General: Alert, Awake, No acute Distress, obese Eyes/N/T: EOMI, Head/Neck: neck supple, CV: RRR, 2/6SM, Pulm: Fine bibasilar rales, no wheezing Abd: soft, nontender, +BS x4 Ext: no clubbing/cyanosis/edema. Right lower extremity with erythema but is not indurated/swollen/or tender Neuro: Alert and oriented, moves all extremities. Significantly improved mentation, no focal deficits. skin: warm/dry Medical - PN: Obj Da - Labs CBC & Chem 7: 12/14/18 03:24 12/14/18 03:24 Labs: Abnormal Lab Results 12/14/18 12/14/18 12/14/18 03:24 03:24 03:24 WBC RBC Hgb Hct POC Hct MCHC RDW Gran % Lymph % (Auto) Gran # Lymph # (Auto) Seg Neutrophils % Lymphocytes % Nucleated RBCs RBC Morphology Polychromasia Hypochromasia Anisocytosis PT 33.4 H INR 3.3 H POC Sodium Sodium 150 H POC Chloride Chloride 113 H Anion Gap POC BUN BUN 32 H Creatinine 1.7 H POC Creatinine Glucose 147 H POC Glucose Uric Acid POC WB Ioniz Calcium Phosphorus 1.7 L AST 94 H Lactate Dehydrogenase 310 H Total Creatine Kinase 2437 H C-Reactive Protein 29.5 H Albumin 3.1 L Globulin Albumin/Globulin Ratio 0.8 L Triglycerides 236 H Urine Protein Urine Glucose (UA) Urine Ketones Urine Occult Blood Urine RBC Amorphous Crystals 12/14/18 12/13/18 12/13/18 03:24 23:34 21:47 WBC 22.4 H RBC 2.86 L Hgb 8.6 L Hct 27.8 L POC Hct MCHC RDW 23.5 H Gran % 94.0 H Lymph % (Auto) 2.9 L Gran # 21.1 H Lymph # (Auto) 0.6 L Seg Neutrophils % Lymphocytes % Nucleated RBCs RBC Morphology Polychromasia Hypochromasia Anisocytosis PT INR POC Sodium Sodium 148 H 146 H POC Chloride Chloride 110 H Anion Gap 18.0 H POC BUN BUN 48 H 36 H Creatinine 2.0 H 1.8 H POC Creatinine Glucose 176 H 204 H POC Glucose Uric Acid POC WB Ioniz Calcium Phosphorus AST 145 H Lactate Dehydrogenase Total Creatine Kinase 3177 H C-Reactive Protein Albumin Globulin 3.9 H Albumin/Globulin Ratio 0.9 L Triglycerides Urine Protein Urine Glucose (UA) Urine Ketones Urine Occult Blood Urine RBC Amorphous Crystals 12/13/18 12/13/18 12/13/18 07:20 07:15 07:15 WBC RBC Hgb Hct POC Hct MCHC RDW Gran % Lymph % (Auto) Gran # Lymph # (Auto) Seg Neutrophils % Lymphocytes % Nucleated RBCs RBC Morphology Polychromasia Hypochromasia Anisocytosis PT 23.4 H INR 2.1 H POC Sodium Sodium 150 H POC Chloride Chloride 113 H Anion Gap POC BUN BUN 43 H Creatinine 1.8 H POC Creatinine Glucose 178 H POC Glucose Uric Acid 8.1 H POC WB Ioniz Calcium Phosphorus AST 142 H Lactate Dehydrogenase 372 H Total Creatine Kinase C-Reactive Protein 38.2 H Albumin 3.1 L Globulin Albumin/Globulin Ratio 0.8 L Triglycerides 210 H Urine Protein Urine Glucose (UA) Urine Ketones Urine Occult Blood Urine RBC Amorphous Crystals 12/13/18 12/13/18 12/12/18 06:42 00:20 23:34 WBC 31.7 H* RBC 3.18 L Hgb 9.5 L Hct 30.4 L POC Hct MCHC RDW 23.7 H Gran % Lymph % (Auto) Gran # Lymph # (Auto) Seg Neutrophils % 96 H Lymphocytes % 1 L Nucleated RBCs 1 H RBC Morphology Abnorm A Polychromasia Few A Hypochromasia Few A Anisocytosis 2+ A PT 20.4 H INR 1.8 H POC Sodium Sodium POC Chloride Chloride Anion Gap POC BUN BUN Creatinine POC Creatinine Glucose POC Glucose Uric Acid POC WB Ioniz Calcium Phosphorus AST Lactate Dehydrogenase Total Creatine Kinase C-Reactive Protein Albumin Globulin Albumin/Globulin Ratio Triglycerides Urine Protein 100 A Urine Glucose (UA) >=500 A Urine Ketones 5/tr A Urine Occult Blood >=1.0 A Urine RBC 2 H Amorphous Crystals Few A 12/12/18 12/12/18 12/12/18 23:34 23:34 23:34 WBC 35.6 H* RBC 3.36 L Hgb 10.0 L Hct 32.2 L POC Hct 31.0 L MCHC 30.9 L RDW 23.7 H Gran % Lymph % (Auto) Gran # Lymph # (Auto) Seg Neutrophils % 90 H Lymphocytes % 2 L Nucleated RBCs RBC Morphology Abnorm A Polychromasia 1+ A Hypochromasia Anisocytosis 2+ A PT INR POC Sodium 149 H Sodium POC Chloride 110 H Chloride Anion Gap POC BUN 46 H BUN Creatinine POC Creatinine 2.4 H Glucose POC Glucose 184 H Uric Acid POC WB Ioniz Calcium 1.11 L Phosphorus AST Lactate Dehydrogenase Total Creatine Kinase 4626 H C-Reactive Protein Albumin Globulin Albumin/Globulin Ratio Triglycerides Urine Protein Urine Glucose (UA) Urine Ketones Urine Occult Blood Urine RBC Amorphous Crystals Meds: Medications Hydrocodone Bitart/Acetaminophen (Prospect 5/325mg) 1 tab PO Q4HP PRN PRN Reason: Pain Albuterol Sulfate (Ventolin) 1.25 mg NEB Q6HP PRN PRN Reason: Shortness Of Breath Last Admin: 12/13/18 23:10 Dose: 1.25 mg Documented by: Albuterol/Ipratropium (Duoneb) 3 ml NEB Q4HP PRN PRN Reason: Shortness Of Breath Allopurinol (Zyloprim) 100 mg PO HS [facility] Last Admin: 12/13/18 21:16 Dose: 100 mg Documented by: Atenolol (Tenormin) 25 mg PO DAILY [facility] Bupropion HCl (Wellbutrin Sr) 150 mg PO BID [facility] Last Admin: 12/13/18 21:16 Dose: 150 mg Documented by: Carbidopa/Levodopa (Sinemet 25/100) 1 tab PO QHS [facility] Last Admin: 12/13/18 21:16 Dose: 1 tab Documented by: Diagnostic Test (Pha) (Accu-Chek) 1 each FS ACHS [facility] Last Admin: 12/13/18 21:05 Dose: 1 each Documented by: Digoxin (Lanoxin) 250 mcg PO DAILY@1400 [facility] Last Admin: 12/13/18 13:38 Dose: 250 mcg Documented by: Docusate Sodium (Colace) 100 mg PO BID [facility] Last Admin: 12/13/18 21:48 Dose: Not Given Documented by: Famotidine (Pepcid) 20 mg IV [facility] Last Admin: 12/13/18 21:17 Dose: 20 mg Documented by: Hydralazine HCl (Apresoline) 0 mg IV Q2HP PRN PRN Reason: Hypertension Last Admin: 12/14/18 03:53 Dose: 10 mg Documented by: Hydrocortisone Sodium Succinate (Solu-Cortef) 25 mg IV Q8 [facility] Last Admin: 12/14/18 06:21 Dose: 25 mg Documented by: Diltiazem HCl 125 mg/ Dextrose 125 mls @ 5 mls/hr IV Q12H [facility]; Protocol Last Admin: 12/14/18 00:06 Dose: Not Given Documented by: Acetaminophen (Ofirmev) 650 mg in 65 mls @ 130 mls/hr IV Q6HP PRN PRN Reason: PAIN/FEVER > 101 Last Infusion: 12/14/18 01:33 Dose: Infused Documented by: Piperacillin Sod/Tazobactam (Sod 3.375 gm/ Dextrose) 50 mls @ 100 mls/hr IV Q6H [facility]; Protocol Last Admin: 12/14/18 05:57 Dose: 100 mls/hr Documented by: Potassium Chloride 40 meq/ (Dextrose) 520 mls @ 130 mls/hr IV UD PRN PRN Reason: Potassium < 3 Magnesium Sulfate (Magnesium Sulfate) 2 gm in 50 mls @ 50 mls/hr IV UD PRN PRN Reason: Magnesium </= 1.6 Vancomycin HCl 1,500 mg/ (Sodium Chloride) 500 mls @ 333.3 mls/hr IV DAILY [facility] Last Infusion: 12/13/18 15:17 Dose: Infused Documented by: Dextrose (Dextrose 5% In Water) 1,000 mls @ 70 mls/hr IV .[id number] [facility] Stop: 12/15/18 04:08 Last Admin: 12/14/18 00:08 Dose: Not Given Documented by: Insulin Glargine (Lantus) 10 unit SQ DAILY [facility] Insulin Human Lispro (Humalog) 0 unit SQ ACHS [facility]; Protocol Last Admin: 12/13/18 21:16 Dose: 6 units Documented by: Labetalol HCl (Trandate) 0 mg IV Q2HP PRN PRN Reason: Hypertension Last Admin: 12/13/18 15:04 Dose: 10 mg Documented by: Lactulose (Cephulac) 10 gm PO DAILYP PRN PRN Reason: Constipation Levothyroxine Sodium (Synthroid) 125 mcg PO ACB [facility] Metoprolol Tartrate (Lopressor) 5 mg IV Q2HP PRN PRN Reason: Tachyarrhythmias HR>110 Ondansetron HCl (Zofran) 4 mg IV Q4HP PRN PRN Reason: Nausea And Vomiting Arnuity Ellipta 1 dose INH BID [facility] Last Admin: 12/13/18 22:52 Dose: Not Given Documented by: Beclomethasone 80 Mcg/Actuation Inhaler 1 dose INH BID [facility] Last Admin: 12/13/18 22:51 Dose: 1 dose Documented by: Mometasone Furoate [ Elocon] 0.1% Topical Ointment 1 dose TOPICAL DAILY [facility] Polyethylene Glycol (Miralax) 17 gm PO DAILYP PRN PRN Reason: Constipation Potassium Chloride (Kdur) 40 meq PO UD PRN PRN Reason: Potssium is 3-3.5 Potassium Chloride (Kdur) 40 meq PO UD PRN PRN Reason: Potassium < 3 Prednisone (Prednisone) 10 mg PO QAMCC [facility] Prochlorperazine (Compazine) 10 mg IV Q6HP PRN PRN Reason: Nausea And Vomiting Senna (Senokot) 2 tab PO HSP PRN PRN Reason: Constipation Sodium Chloride (Saline Flush) 10 ml IV Q8 [facility] Last Admin: 12/14/18 06:14 Dose: 10 ml Documented by: Vancomycin HCl (Vancomycin Per Pharmacy) 1 order IV UD [facility]; Protocol Warfarin Sodium (Coumadin Per Pharmacy) 1 order PO UD [facility] Zolpidem Tartrate (Ambien) 5 mg PO HS [facility] Last Admin: 12/13/18 21:16 Dose: Not Given Documented by: Medical - PN: A/P - Time Spent With Patient Total time spent is greater than 50% in coordination of care (as documented) at patient's floor/unit and/or counseling patient: - Narrative A/P Narrative: *Fall at home, unwitnessed: *Rhabdomyolysis: 2/2 above with prolonged downtime -Improving *Hypernatremia/dehydration: *Fever: rhabdo vs infection or both *MARILYN on CKD IIIb (base Cr~1.6): 2/2 above -improving, good UOP *RLE cellulitis vs ?chronic: Not tender/indurated/swollen, patient stated leg always red? -does not look cellulitic, no compartment syndrome *Sepsis: source leg vs Pulm -leukocytosis/PCT/CRP improving *Encephalopathy, on admit: 2/2 above. -Improving -CT brain with moderate atrophy and chronic ischemic changes and scattered remote lacunar infarcts basal ganglia and internal capsule *Afib w/RVR: on BB/Warfarin/Dig. -now rate controlled *Aspiration Pneumonitis/PNA: nurse notes coughing with thin and nectar thick - *Anemia, chronic: *Volume Depletion: resolved *Generalized weakness/debility/deconditioning: uses wheelchair at home *KATY on BiPAP at night: *COPD (2L NC @home)/ILD: Follows with Dr. Long. Steroid-dependent *Immunosuppression, chronic steroids: *Psoriasis: on MTX *Parkinson's: *DM: *HTN/HLD: ARB/BB *Morbid obesity: *Depression/anxiety *GERD/Hypothyroid: *hypophos *Chronic leukocytosis: Elevated above baseline, no bandemia -Peripheral smear suggestive of MDS -IMproved P: -D5w, pharm to change riders to hypotonic -monitor Na -empiric vanc/zosyn -cont home prednisone -cont BB/Dig -hold ARB/diuretics for MARILYN -home o2 with home bipap @night, Nebs -prn electrolyte replace -basal insulin and SSI -BCR/ABL pending; f/u with hematology outpatient - eval -pt/ot -ppx: warfarin per pharm/home ppi Medical - PN: Qual - VTE Deep Vein Thrombosis/Pulmonary Embolism Present on Admission: No
[2018-12-14] MEDS ORDERED: LEVOTHYROXINE 125 MCG TABLET PO SCH (07:30)
[2018-12-14] MEDS ORDERED: HYDROCHLOROTHIAZIDE 25 MG TABLET PO ONE (07:37)
[2018-12-14] MEDS ORDERED: DILTIAZEM 125 MG in DEXTROSE 5% IN WATER 100 ML IV SCH (07:45)
[2018-12-14] MEDS ORDERED: predniSONE 10 MG TABLET PO SCH (08:00)
[2018-12-14] MEDS ORDERED: VANCOMYCIN 1,500 MG in DEXTROSE 5% IN WATER 500 ML IV SCH ×2 (08:00→09:00)
[2018-12-14] MEDS: INSULIN LISPRO 1 UNIT/0.01 ML UNIT SQ SCH ×4 (08:20→22:01)
[2018-12-14] MEDS: DOCUSATE SODIUM 100 MG CAPSULE PO SCH ×2 (08:48→21:58)
[2018-12-14] MEDS ORDERED: PHOSPHORUS 250 MG TABLET PO SCH ×2 (09:00→21:00)
[2018-12-14] MEDS ORDERED: INSULIN GLARGINE, HUMAN 1 UNIT/0.01 ML SQ SCH (09:00)
[2018-12-14] MEDS ORDERED: INSULIN DETEMIR 15 UNIT SC SCH (09:00)
[2018-12-14] MEDS ORDERED: ATENOLOL 50 MG TABLET PO SCH (09:00)
[2018-12-14] MEDS: buPROPion 150 MG TAB.SR.12H PO SCH ×2 (10:09→21:59)
[2018-12-14] MEDS: MOMETASONE FUROATE 0.1% TOPICAL SCH (10:12)
[2018-12-14] MEDS: BECLOMETHASONE INH SCH ×2 (10:44→20:43)
[2018-12-14 12:58] LABS: Blood Urea Nitrogen 30 mg/dl (8-23); Calcium 8.8 mg/dl (8.6-10.4); Carbon Dioxide 24 mmol/L (22-30); Chloride 110 mmol/L (96-108); Glomerular Filtration Rate 32; Glucose 245 mg/dL (70-105)
[2018-12-14] MEDS: DIGOXIN 125 MCG TABLET PO SCH (14:07)
[2018-12-14] MEDS ORDERED: ONDANSETRON 4 MG/2 ML VIAL IV PRN (15:10)
[2018-12-14] MEDS ORDERED: hydrALAZINE 20 MG/ML VIAL IV PRN (15:10)
[2018-12-14] MEDS ORDERED: POTASSIUM CHLORIDE 40 MEQ in DEXTROSE 5% IN WATER 500 ML IV PRN (15:10)
[2018-12-14] MEDS ORDERED: POTASSIUM CHLORIDE 20 MEQ TABLET PO PRN ×2 (15:10)
[2018-12-14] MEDS ORDERED: MAGNESIUM SULFATE 2 GM/50 ML BAG IV PRN (15:10)
[2018-12-14] MEDS ORDERED: POLYETHYLENE GLYCOL 3350 17 GM PACKET PO PRN (15:10)
[2018-12-14] MEDS ORDERED: METOPROLOL TARTRATE 5 MG/5 ML VIAL IV PRN (15:10)
[2018-12-14] MEDS ORDERED: LABETALOL 5 MG/ML ML IV PRN (15:10)
[2018-12-14] MEDS ORDERED: PROCHLORPERAZINE 10 MG/2 ML VIAL IV PRN (15:10)
[2018-12-14] MEDS ORDERED: VANCOMYCIN PER PHARMACY IV SCH (15:10)
[2018-12-14] MEDS ORDERED: IPRATROPIUM/ALBUTEROL 3 ML AMPUL.NEB NEB PRN (15:10)
[2018-12-14] MEDS ORDERED: ACETAMINOPHEN 650 MG/65 ML BOTTLE IV PRN (15:10)
[2018-12-14] MEDS ORDERED: ALBUTEROL SULFATE 2.5 MG/3 ML NEBULIZER NEB PRN (15:10)
[2018-12-14] MEDS ORDERED: SENNOSIDES 1 TABLET PO PRN (15:10)
[2018-12-14] MEDS: FAMOTIDINE/PF 20 MG/2 ML VIAL IV SCH (21:57)
[2018-12-14] MEDS: ALLOPURINOL 100 MG TABLET PO SCH (21:58)
[2018-12-14] MEDS: ZOLPIDEM 5 MG TABLET PO SCH (21:58)
[2018-12-14] MEDS: CARBIDOPA/LEVODOPA 25/100 TABLET PO SCH (21:58)
[2018-12-14] MEDS: HYDROcodone/APAP 5/325MG TABLET PO PRN (21:59)
[2018-12-14] MEDS: ARNUITY ELLIPTA INH SCH (22:14)
[2018-12-14] MEDS: MUPIROCIN OINT 2% 22GM NARES SCH (22:14)
[2018-12-15] MEDS: HYDROcodone/APAP 5/325MG TABLET PO PRN ×2 (01:14→05:57)
[2018-12-15] MEDS: PIPERACILLIN SODIUM/TAZOBACTAM 3.375 GM in DEXTROSE 5% IN WATER 50 ML IV SCH ×3 (05:57→17:45)
[2018-12-15 06:01] LABS: Basophils # (Auto) 0 K/mcL (0.0-0.3); Basophils % (Auto) 0 % (0.0-2.0); Eosinophils # (Auto) 0.1 K/mcL (0.0-0.7); Eosinophils % (Auto) 0.4 % (0.0-7.0); Granulocytes % (Auto) 87.5 % (38.0-78.0); Hematocrit 27.1 % (36.0-48.0); Hemoglobin 8.4 g/dL (12.0-15.0); Lymphocytes # (Auto) 0.7 K/mcL (1.5-4.8); Lymphocytes % (Auto) 5.9 % (15.5-49.0); Mean Cell Volume 97.3 fL (80.0-100.0); Mean Corpuscular HGB Conc 30.9 g/dL (31.0-36.0); Mean Platelet Volume 8.9 fL (7.4-10.4); Monocytes # (Auto) 0.8 K/mcL (0.1-0.9); Monocytes % (Auto) 6.2 % (1.0-12.0); Platelet Count 188 K/mcL (140-440); RBC 2.79 M/mcL (4.00-5.20); Red Cell Distribution Width 22.9 % (11.5-14.5); WBC 12.3 K/mcL (4.5-11.0)
[2018-12-15] MEDS: 0.9 % SODIUM CHLORIDE 10 ML SYRINGE IV SCH ×5 (06:01→21:19)
[2018-12-15 06:08] LABS: ALT/SGPT 8 U/l (0-40); AST/SGOT 67 U/l (0-37); Albumin 2.9 gm/dL (3.2-5.2); Albumin/Globulin Ratio 0.8 (1.0-2.3); Alkaline Phosphatase 68 U/L (39-117); Bilirubin,Direct < 0.2 mg/dL (0.0-0.3); Bilirubin,Total 0.3 mg/dL (0.0-1.0); Blood Urea Nitrogen 29 mg/dl (8-23); Calcium 8.8 mg/dl (8.6-10.4); Carbon Dioxide 26 mmol/L (22-30); Chloride 103 mmol/L (96-108); Creatine Kinase 763 IU/L (24-170); Globulin 3.5 gm/dL (2.2-3.7); Glomerular Filtration Rate 35; Glucose 90 mg/dL (70-105); Lactate Dehydrogenase 312 U/L (94-250); Phosphorous 2.3 mg/dL (2.7-4.5); Triglycerides 246 mg/dl (<150); Uric Acid 4.7 mg/dL (2.5-8.0)
--- NOTE | 2018-12-15 06:44 | XRay Report ---
CLINICAL INFORMATION: ?aspiration COMPARISON: 12/13/2018 FINDINGS: Moderate cardiomegaly is unchanged. Mediastinum is unremarkable. Pulmonary vessels have returned to normal caliber. There is no edema. Patchy bibasilar airspace disease as improved considerably with minimal right basilar residual. Small right pleural effusion noted IMPRESSION: 1. Complete interval resolution CHF 2. Marked improvement of bibasilar infiltrates with minimal right basilar residual Interpreted and Authenticated by: Brett Martínez 12/15/18
[2018-12-15] MEDS ORDERED: POTASSIUM CHLORIDE 20 MEQ TABLET PO ONE (07:37)
[2018-12-15] MEDS ORDERED: HYDROCHLOROTHIAZIDE 25 MG TABLET PO ONE (07:37)
[2018-12-15] MEDS ORDERED: ALBUMIN HUMAN 12.5 GM/50 ML BAG IV ONE (07:39)
--- NOTE | 2018-12-15 07:42 | Internal Med Progress Note ---
Medical - PN: Subj Patient information: Note initiated : 12/15/18 at 7:32 am Service Date, if different from initiated Date: [] Patient: Mayra Blood 72 y/o F admitted on 12/13/18 for Found Down At Home. Chief Complaint: [] Interval history: Ms. Blood is a 72 year old F Whose family had not heard from her during the day so they had the police check on her and she was found down on the floor. It was felt she likely benefit 24 hours. She is normally on oxygen but did not have her oxygen on. Heart rate was 140 she has a history of A. fib and EMS had a temperature 101.6. In the ED she was evaluated she is nonverbal but awake and follows basic commands and also was noted to have erythema of her right lower extremity (of note she has had right lower extremity cellulitis in the past with sepsis on an inpatient note from the January 2015). History is difficult to obtain from patient. Sounds like she lives with her sister but she did state that her sister is out of town. Patient does not not remember where she fell in the house or when. Denies any hip or leg pain. Denies fever chills chest pain shortness of breath coughing. Right lower leg is red and she had a history of cellulitis treated in that right leg before 4 years ago. But she denies any tenderness in that leg. And it looks more chronic acute cellulitic. Patient states her right lower extremity is always red. She is slow to answer but does answer most questions and whisper. In the ED she was found to have been rhabdomyolysis with acute kidney injury and leukocytosis. She did state to nurse later that she fell on Thursday. 12/14 Feeling better. Mentally clear today, answering questions appropriately. States had a headache last night but none today. States she uses 2 L of oxygen day and night. She has a bit of a dry cough. Right leg is red but not tender, she denies any being red at home normally. 12/15 Poor sleep last night because of her chronic back pain. Otherwise no events. Still very weak. Has not worked very much with physical therapy yet. Review of Systems: denies fever/chills/nausea/vomiting/chest or abdominal pain/cough/dyspnea/diarrhea. Otherwise see above. - Constitutional Vitals: Vital Signs Temp Pulse Resp BP Pulse Ox 97.9 F 56 L 16 151/74 97 12/15/18 04:00 12/15/18 04:00 12/15/18 04:00 12/15/18 04:00 12/15/18 04:00 Period Temp Pulse Resp BP Sys/Jacobson Pulse Ox Last 24 Hr 97.9 F-99.5 F 55-96 16-27 116-183/61-89 96-100 Intake and Output 12/14/18 12/15/18 12/15/18 21:59 05:59 13:59 Intake Total 1212 50 50 Output Total 240 900 Balance 972 -850 50 Weight 124.284 kg Intake & Output: Intake & Output 12/14/18 12/15/18 12/15/18 21:59 05:59 13:59 Intake Total 1212 50 50 Output Total 240 900 Balance 972 -850 50 Weight 124.284 kg Intake: IV 492 50 50 Dextrose 5% in Water 1,000 ml @ 442 70 mls/hr IV .[id number] MARIO Rx#: [id number] Zosyn 3.375 gm In Dextrose 5% 50 50 50 in Water 50 ml @ 100 mls/hr IV Q6H MARIO Rx#:[id number] Oral 720 Output: Urine Catheter Amount 240 900 Other: Urine Appearance Clear Clear Uretheral (Fernandez) Clear Urine Color Bright Yellow Light Viktoria Uretheral (Fernandez) Bright Yellow Urine Odor Normal # Bowel Movements 0 Exam: General: Alert, Awake, No acute Distress, obese Eyes/N/T: EOMI, Head/Neck: neck supple, CV: RRR, 2/6SM, Pulm: mild Fine bibasilar rales, no wheezing Abd: soft, nontender, +BS x4 Ext: no clubbing/cyanosis/edema. Right lower extremity with erythema (improved) but is not indurated/swollen/or tender Neuro: Alert and oriented, moves all extremities. mentation good, no focal deficits. skin: warm/dry Medical - PN: Obj Da - Labs CBC & Chem 7: 12/15/18 03:14 12/15/18 03:14 Labs: Abnormal Lab Results 12/15/18 12/15/18 12/15/18 03:14 03:14 03:14 WBC 12.3 H RBC 2.79 L Hgb 8.4 L Hct 27.1 L POC Hct MCHC 30.9 L RDW 22.9 H Gran % 87.5 H Lymph % (Auto) 5.9 L Gran # 10.7 H Lymph # (Auto) 0.7 L Seg Neutrophils % Lymphocytes % Nucleated RBCs RBC Morphology Polychromasia Hypochromasia Anisocytosis PT INR POC Sodium Sodium Potassium 3.1 L POC Chloride Chloride Anion Gap POC BUN BUN 29 H Creatinine 1.5 H POC Creatinine Glucose POC Glucose Uric Acid POC WB Ioniz Calcium Phosphorus 2.3 L AST 67 H Lactate Dehydrogenase 312 H Total Creatine Kinase 763 H C-Reactive Protein Albumin 2.9 L Globulin Albumin/Globulin Ratio 0.8 L Triglycerides 246 H Urine Protein Urine Glucose (UA) Urine Ketones Urine Occult Blood Urine RBC Amorphous Crystals 12/14/18 12/14/18 12/14/18 11:57 03:24 03:24 WBC RBC Hgb Hct POC Hct MCHC RDW Gran % Lymph % (Auto) Gran # Lymph # (Auto) Seg Neutrophils % Lymphocytes % Nucleated RBCs RBC Morphology Polychromasia Hypochromasia Anisocytosis PT INR POC Sodium Sodium 150 H Potassium POC Chloride Chloride 110 H 113 H Anion Gap POC BUN BUN 30 H 32 H Creatinine 1.6 H 1.7 H POC Creatinine Glucose 245 H 147 H POC Glucose Uric Acid POC WB Ioniz Calcium Phosphorus 1.7 L AST 94 H Lactate Dehydrogenase 310 H Total Creatine Kinase 2437 H C-Reactive Protein 29.5 H Albumin 3.1 L Globulin Albumin/Globulin Ratio 0.8 L Triglycerides 236 H Urine Protein Urine Glucose (UA) Urine Ketones Urine Occult Blood Urine RBC Amorphous Crystals 12/14/18 12/14/18 12/13/18 03:24 03:24 23:34 WBC 22.4 H RBC 2.86 L Hgb 8.6 L Hct 27.8 L POC Hct MCHC RDW 23.5 H Gran % 94.0 H Lymph % (Auto) 2.9 L Gran # 21.1 H Lymph # (Auto) 0.6 L Seg Neutrophils % Lymphocytes % Nucleated RBCs RBC Morphology Polychromasia Hypochromasia Anisocytosis PT 33.4 H INR 3.3 H POC Sodium Sodium 148 H Potassium POC Chloride Chloride Anion Gap 18.0 H POC BUN BUN 48 H Creatinine 2.0 H POC Creatinine Glucose 176 H POC Glucose Uric Acid POC WB Ioniz Calcium Phosphorus AST 145 H Lactate Dehydrogenase Total Creatine Kinase C-Reactive Protein Albumin Globulin 3.9 H Albumin/Globulin Ratio 0.9 L Triglycerides Urine Protein Urine Glucose (UA) Urine Ketones Urine Occult Blood Urine RBC Amorphous Crystals 12/13/18 12/13/18 12/13/18 21:47 07:20 07:15 WBC RBC Hgb Hct POC Hct MCHC RDW Gran % Lymph % (Auto) Gran # Lymph # (Auto) Seg Neutrophils % Lymphocytes % Nucleated RBCs RBC Morphology Polychromasia Hypochromasia Anisocytosis PT 23.4 H INR 2.1 H POC Sodium Sodium 146 H 150 H Potassium POC Chloride Chloride 110 H 113 H Anion Gap POC BUN BUN 36 H 43 H Creatinine 1.8 H 1.8 H POC Creatinine Glucose 204 H 178 H POC Glucose Uric Acid 8.1 H POC WB Ioniz Calcium Phosphorus AST 142 H Lactate Dehydrogenase 372 H Total Creatine Kinase 3177 H C-Reactive Protein Albumin 3.1 L Globulin Albumin/Globulin Ratio 0.8 L Triglycerides 210 H Urine Protein Urine Glucose (UA) Urine Ketones Urine Occult Blood Urine RBC Amorphous Crystals 12/13/18 12/13/18 12/13/18 07:15 06:42 00:20 WBC 31.7 H* RBC 3.18 L Hgb 9.5 L Hct 30.4 L POC Hct MCHC RDW 23.7 H Gran % Lymph % (Auto) Gran # Lymph # (Auto) Seg Neutrophils % 96 H Lymphocytes % 1 L Nucleated RBCs 1 H RBC Morphology Abnorm A Polychromasia Few A Hypochromasia Few A Anisocytosis 2+ A PT INR POC Sodium Sodium Potassium POC Chloride Chloride Anion Gap POC BUN BUN Creatinine POC Creatinine Glucose POC Glucose Uric Acid POC WB Ioniz Calcium Phosphorus AST Lactate Dehydrogenase Total Creatine Kinase C-Reactive Protein 38.2 H Albumin Globulin Albumin/Globulin Ratio Triglycerides Urine Protein 100 A Urine Glucose (UA) >=500 A Urine Ketones 5/tr A Urine Occult Blood >=1.0 A Urine RBC 2 H Amorphous Crystals Few A 12/12/18 12/12/18 12/12/18 23:34 23:34 23:34 WBC 35.6 H* RBC 3.36 L Hgb 10.0 L Hct 32.2 L POC Hct MCHC 30.9 L RDW 23.7 H Gran % Lymph % (Auto) Gran # Lymph # (Auto) Seg Neutrophils % 90 H Lymphocytes % 2 L Nucleated RBCs RBC Morphology Abnorm A Polychromasia 1+ A Hypochromasia Anisocytosis 2+ A PT 20.4 H INR 1.8 H POC Sodium Sodium Potassium POC Chloride Chloride Anion Gap POC BUN BUN Creatinine POC Creatinine Glucose POC Glucose Uric Acid POC WB Ioniz Calcium Phosphorus AST Lactate Dehydrogenase Total Creatine Kinase 4626 H C-Reactive Protein Albumin Globulin Albumin/Globulin Ratio Triglycerides Urine Protein Urine Glucose (UA) Urine Ketones Urine Occult Blood Urine RBC Amorphous Crystals 12/12/18 23:34 WBC RBC Hgb Hct POC Hct 31.0 L MCHC RDW Gran % Lymph % (Auto) Gran # Lymph # (Auto) Seg Neutrophils % Lymphocytes % Nucleated RBCs RBC Morphology Polychromasia Hypochromasia Anisocytosis PT INR POC Sodium 149 H Sodium Potassium POC Chloride 110 H Chloride Anion Gap POC BUN 46 H BUN Creatinine POC Creatinine 2.4 H Glucose POC Glucose 184 H Uric Acid POC WB Ioniz Calcium 1.11 L Phosphorus AST Lactate Dehydrogenase Total Creatine Kinase C-Reactive Protein Albumin Globulin Albumin/Globulin Ratio Triglycerides Urine Protein Urine Glucose (UA) Urine Ketones Urine Occult Blood Urine RBC Amorphous Crystals Meds: Medications Hydrocodone Bitart/Acetaminophen (Seeley 5/325mg) 1 tab PO Q4HP PRN PRN Reason: Pain Last Admin: 12/15/18 05:57 Dose: 1 tab Documented by: Albuterol Sulfate (Ventolin) 1.25 mg NEB Q6HP PRN PRN Reason: Shortness Of Breath Albuterol/Ipratropium (Duoneb) 3 ml NEB Q4HP PRN PRN Reason: Shortness Of Breath Allopurinol (Zyloprim) 100 mg PO [facility] Last Admin: 12/14/18 21:58 Dose: 100 mg Documented by: Atenolol (Tenormin) 25 mg PO DAILY [facility] Bupropion HCl (Wellbutrin Sr) 150 mg PO BID [facility] Last Admin: 12/14/18 21:59 Dose: 150 mg Documented by: Carbidopa/Levodopa (Sinemet 25/100) 1 tab PO QHS [facility] Last Admin: 12/14/18 21:58 Dose: 1 tab Documented by: Diagnostic Test (Pha) (Accu-Chek) 1 each FS ACHS [facility] Last Admin: 12/14/18 22:00 Dose: 1 each Documented by: Digoxin (Lanoxin) 250 mcg PO DAILY@1400 [facility] Docusate Sodium (Colace) 100 mg PO BID [facility] Last Admin: 12/14/18 21:58 Dose: 100 mg Documented by: Famotidine (Pepcid) 20 mg IV HS [facility] Last Admin: 12/14/18 21:57 Dose: 20 mg Documented by: Hydralazine HCl (Apresoline) 0 mg IV Q2HP PRN PRN Reason: Hypertension Last Admin: 12/15/18 00:26 Dose: 20 mg Documented by: Potassium Chloride 40 meq/ (Dextrose) 520 mls @ 130 mls/hr IV UD PRN PRN Reason: Potassium < 3 Magnesium Sulfate (Magnesium Sulfate) 2 gm in 50 mls @ 50 mls/hr IV UD PRN PRN Reason: Magnesium </= 1.6 Acetaminophen (Ofirmev) 650 mg in 65 mls @ 130 mls/hr IV Q6HP PRN PRN Reason: PAIN/FEVER > 101 Piperacillin Sod/Tazobactam (Sod 3.375 gm/ Dextrose) 50 mls @ 100 mls/hr IV Q6H [facility]; Protocol Last Infusion: 12/15/18 06:30 Dose: Infused Documented by: Vancomycin HCl 1,500 mg/ (Dextrose) 500 mls @ 333.3 mls/hr IV Q24H [facility] Insulin Glargine (Lantus) 10 unit SQ DAILY [facility] Insulin Human Lispro (Humalog) 0 unit SQ ACHS [facility]; Protocol Last Admin: 12/14/18 22:01 Dose: Not Given Documented by: Labetalol HCl (Trandate) 0 mg IV Q2HP PRN PRN Reason: Hypertension Lactulose (Cephulac) 10 gm PO DAILYP PRN PRN Reason: Constipation Levothyroxine Sodium (Synthroid) 125 mcg PO ACB [facility] Metoprolol Tartrate (Lopressor) 5 mg IV Q2HP PRN PRN Reason: Tachyarrhythmias HR>110 Mupirocin (Bactroban Oint 2%) 1 dose NARES BID [facility] Last Admin: 12/14/18 22:14 Dose: 1 dose Documented by: Ondansetron HCl (Zofran) 4 mg IV Q4HP PRN PRN Reason: Nausea And Vomiting Arnuity Ellipta (Inhaler) 1 dose INH BID [facility] Last Admin: 12/14/18 22:14 Dose: 1 dose Documented by: Beclomethasone 80 Mcg/Actuation Inhaler 1 dose INH BID [facility] Last Admin: 12/14/18 20:43 Dose: Not Given Documented by: Mometasone Furoate [ Elocon] 0.1% Topical Ointment 1 dose TOPICAL DAILY [facility] Polyethylene Glycol (Miralax) 17 gm PO DAILYP PRN PRN Reason: Constipation Potassium Chloride (Kdur) 40 meq PO UD PRN PRN Reason: Potssium is 3-3.5 Potassium Chloride (Kdur) 40 meq PO UD PRN PRN Reason: Potassium < 3 Prednisone (Prednisone) 10 mg PO QAC [facility] Prochlorperazine (Compazine) 10 mg IV Q6HP PRN PRN Reason: Nausea And Vomiting Senna (Senokot) 2 tab PO HSP PRN PRN Reason: Constipation Sodium Chloride (Saline Flush) 10 ml IV Q8 [facility] Last Admin: 12/15/18 06:01 Dose: 10 ml Documented by: Vancomycin HCl (Vancomycin Per Pharmacy) 1 order IV UD [facility]; Protocol Warfarin Sodium (Coumadin Per Pharmacy) 1 order PO UD [facility] Zolpidem Tartrate (Ambien) 5 mg PO HS [facility] Last Admin: 12/14/18 21:58 Dose: 5 mg Documented by: Medical - PN: A/P - Time Spent With Patient Total time spent is greater than 50% in coordination of care (as documented) at patient's floor/unit and/or counseling patient: - Narrative A/P Narrative: *Fall at home, unwitnessed: *Rhabdomyolysis: 2/2 above with prolonged downtime -Improving *Hypernatremia/dehydration: resolved *Fever: rhabdo vs infection or both. Resolved *MARILYN on CKD IIIb (base Cr~1.6): 2/2 above -now back to baseline, good UOP *RLE cellulitis vs ?chronic: Not tender/indurated/swollen, patient stated leg always red? -does not look cellulitic, no compartment syndrome *Sepsis: source leg vs Pulm -leukocytosis/PCT/CRP improving *Encephalopathy, on admit: 2/2 above. REsolved -CT brain with moderate atrophy and chronic ischemic changes and scattered remote lacunar infarcts basal ganglia and internal capsule *Afib w/RVR: on BB/Warfarin/Dig -now rate controlled *Aspiration Pneumonitis/PNA: nurse notes coughing with thin and nectar thick - *Oropharyngeal Dysphagia,moderate: *Anemia, chronic: dilutional component acute *Generalized weakness/debility/deconditioning: uses wheelchair at home *KATY on BiPAP at night: *COPD (2L NC @home)/ILD: Follows with Dr. Long. Steroid-dependent *Immunosuppression, chronic steroids: *Psoriasis: on MTX *Parkinson's: *DM: *HTN/HLD: ARB/BB *Morbid obesity: *Depression/anxiety/GERD/Hypothyroid: *Chronic leukocytosis: -Peripheral smear suggestive of MDS P: -empiric vanc, zosyn -dysphagia diet per ST -cont home prednisone -cont BB(increase)/Dig -restart ARB/HCTZ -home o2 with home bipap @night, Nebs -prn electrolyte replace -basal insulin and SSI -BCR/ABL pending; f/u with hematology outpatient -pt/ot -CM for placement -ppx: warfarin per pharm/home ppi Medical - PN: Qual - VTE Deep Vein Thrombosis/Pulmonary Embolism Present on Admission: No
[2018-12-15] MEDS: predniSONE 10 MG TABLET PO SCH (07:47)
[2018-12-15] MEDS: LEVOTHYROXINE 125 MCG TABLET PO SCH (07:47)
[2018-12-15] MEDS: INSULIN LISPRO 1 UNIT/0.01 ML UNIT SQ SCH ×4 (07:49→21:28)
[2018-12-15] MEDS ORDERED: VANCOMYCIN 1,500 MG in DEXTROSE 5% IN WATER 500 ML IV SCH (09:00)
[2018-12-15] MEDS ORDERED: ATENOLOL 50 MG TABLET PO SCH (09:00)
[2018-12-15 09:05] LABS: INR 5.4 (0.9-1.1); Prothrombin Time 48.4 sec (11.9-14.5)
[2018-12-15] MEDS: buPROPion 150 MG TAB.SR.12H PO SCH ×2 (09:23→21:17)
[2018-12-15] MEDS: ATENOLOL 50 MG TABLET PO SCH (09:23)
[2018-12-15] MEDS: FUROSEMIDE 40 MG TABLET PO SCH (09:23)
[2018-12-15] MEDS: DOCUSATE SODIUM 100 MG CAPSULE PO SCH ×2 (09:23→21:17)
[2018-12-15] MEDS: LACTULOSE 20 GM/30 ML ORAL.SOL PO PRN (09:25)
[2018-12-15] MEDS: MUPIROCIN OINT 2% 22GM NARES SCH ×2 (09:33→21:18)
[2018-12-15] MEDS: MOMETASONE FUROATE 0.1% TOPICAL SCH ×2 (09:33→09:42)
[2018-12-15] MEDS ORDERED: METHOCARBAMOL 500 MG TABLET PO PRN (09:34)
[2018-12-15] MEDS: ARNUITY ELLIPTA INH SCH ×2 (09:34→21:18)
[2018-12-15] MEDS: BECLOMETHASONE INH SCH ×2 (09:42→21:18)
[2018-12-15] MEDS: INSULIN GLARGINE, HUMAN 1 UNIT/0.01 ML SQ SCH (09:57)
[2018-12-15] MEDS: traMADol 50 MG TABLET PO PRN (12:58)
[2018-12-15] MEDS: DIGOXIN 125 MCG TABLET PO SCH (14:15)
[2018-12-15] MEDS: ZOLPIDEM 5 MG TABLET PO SCH (21:17)
[2018-12-15] MEDS: CARBIDOPA/LEVODOPA 25/100 TABLET PO SCH (21:17)
[2018-12-15] MEDS: FAMOTIDINE/PF 20 MG/2 ML VIAL IV SCH (21:17)
[2018-12-15] MEDS: ALLOPURINOL 100 MG TABLET PO SCH (21:18)
[2018-12-16] MEDS: PIPERACILLIN SODIUM/TAZOBACTAM 3.375 GM in DEXTROSE 5% IN WATER 50 ML IV SCH ×4 (00:15→17:53)
[2018-12-16 05:06] LABS: INR 3.4 (0.9-1.1); Prothrombin Time 33.6 sec (11.9-14.5)
[2018-12-16 05:08] LABS: Basophils # (Auto) 0 K/mcL (0.0-0.3); Basophils % (Auto) 0 % (0.0-2.0); Eosinophils # (Auto) 0.1 K/mcL (0.0-0.7); Eosinophils % (Auto) 0.5 % (0.0-7.0); Granulocytes % (Auto) 90.2 % (38.0-78.0); Hematocrit 26.9 % (36.0-48.0); Hemoglobin 8.4 g/dL (12.0-15.0); Lymphocytes # (Auto) 0.8 K/mcL (1.5-4.8); Lymphocytes % (Auto) 4.6 % (15.5-49.0); Mean Cell Volume 95.4 fL (80.0-100.0); Mean Corpuscular HGB Conc 31.4 g/dL (31.0-36.0); Mean Platelet Volume 9.1 fL (7.4-10.4); Monocytes # (Auto) 0.8 K/mcL (0.1-0.9); Monocytes % (Auto) 4.7 % (1.0-12.0); Platelet Count 230 K/mcL (140-440); RBC 2.81 M/mcL (4.00-5.20); Red Cell Distribution Width 23.4 % (11.5-14.5); WBC 16.3 K/mcL (4.5-11.0)
[2018-12-16] MEDS: 0.9 % SODIUM CHLORIDE 10 ML SYRINGE IV SCH ×3 (05:31→21:31)
[2018-12-16 06:30] LABS: ALT/SGPT 10 U/l (0-40); AST/SGOT 41 U/l (0-37); Albumin 2.9 gm/dL (3.2-5.2); Albumin/Globulin Ratio 0.8 (1.0-2.3); Alkaline Phosphatase 70 U/L (39-117); Bilirubin,Direct < 0.2 mg/dL (0.0-0.3); Bilirubin,Total 0.5 mg/dL (0.0-1.0); Blood Urea Nitrogen 25 mg/dl (8-23); Calcium 8.9 mg/dl (8.6-10.4); Carbon Dioxide 22 mmol/L (22-30); Chloride 103 mmol/L (96-108); Globulin 3.6 gm/dL (2.2-3.7); Glomerular Filtration Rate 46; Glucose 90 mg/dL (70-105); Lactate Dehydrogenase 285 U/L (94-250); Phosphorous 2.5 mg/dL (2.7-4.5); Triglycerides 208 mg/dl (<150)
[2018-12-16] MEDS: INSULIN LISPRO 1 UNIT/0.01 ML UNIT SQ SCH ×4 (07:30→21:46)
[2018-12-16] MEDS: LEVOTHYROXINE 125 MCG TABLET PO SCH (07:31)
[2018-12-16] MEDS ORDERED: LOSARTAN/HCTZ 50/12.5 TABLET PO SCH (09:00)
--- NOTE | 2018-12-16 09:50 | Internal Med Progress Note ---
Medical - PN: Subj Patient information: Note initiated : 12/16/18 at 9:48 am Service Date, if different from initiated Date: [] Patient: Mayra Blood 72 y/o F admitted on 12/13/18 for Found Down At Home. Chief Complaint: [] Interval history: Ms. Blood is a 72 year old F Whose family had not heard from her during the day so they had the police check on her and she was found down on the floor. It was felt she likely benefit 24 hours. She is normally on oxygen but did not have her oxygen on. Heart rate was 140 she has a history of A. fib and EMS had a temperature 101.6. In the ED she was evaluated she is nonverbal but awake and follows basic commands and also was noted to have erythema of her right lower extremity (of note she has had right lower extremity cellulitis in the past with sepsis on an inpatient note from the January 2015). History is difficult to obtain from patient. Sounds like she lives with her sister but she did state that her sister is out of town. Patient does not not remember where she fell in the house or when. Denies any hip or leg pain. Denies fever chills chest pain shortness of breath coughing. Right lower leg is red and she had a history of cellulitis treated in that right leg before 4 years ago. But she denies any tenderness in that leg. And it looks more chronic acute cellulitic. Patient states her right lower extremity is always red. She is slow to answer but does answer most questions and whisper. In the ED she was found to have been rhabdomyolysis with acute kidney injury and leukocytosis. She did state to nurse later that she fell on Thursday. 12/14 Feeling better. Mentally clear today, answering questions appropriately. States had a headache last night but none today. States she uses 2 L of oxygen day and night. She has a bit of a dry cough. Right leg is red but not tender, she denies any being red at home normally. 12/15 Poor sleep last night because of her chronic back pain. Otherwise no events. Still very weak. Has not worked very much with physical therapy yet. 12/16-patient feeling a lot better. Improved hemodynamics. Improved renal function. White count down from 36,000-16.3. Continue Zosyn. INR 3.4. C reatinine down to 1.2. Blood cultures negative so far. Continuing Zosyn and vancomycin. Patient feels remarkably weak. Case management coordinating a safe discharge plan likely to [place]. Continue nutrition support/PT OT. Plan to de-escalate antibiotics to oral in 48 hours. - Constitutional Vitals: Vital Signs Temp Pulse Resp BP Pulse Ox 98.4 F 71 18 155/68 94 12/16/18 06:44 12/16/18 07:30 12/16/18 07:30 12/16/18 06:44 12/16/18 07:30 Period Temp Pulse Resp BP Sys/Jacobson Pulse Ox Last 24 Hr 97.4 F-98.8 F 64-100 16-22 139-157/54-68 94-97 Intake and Output 12/15/18 12/16/18 12/16/18 21:59 05:59 13:59 Intake Total 50 50 50 Output Total 1050 1700 Balance -1000 -1650 50 Weight 278 lb Intake & Output: Intake & Output 12/15/18 12/16/18 12/16/18 21:59 05:59 13:59 Intake Total 50 50 50 Output Total 1050 1700 Balance -1000 -1650 50 Weight 278 lb Intake: IV 50 50 50 Zosyn 3.375 gm In Dextrose 5% 50 50 50 in Water 50 ml @ 100 mls/hr IV Q6H [facility] Rx#:[id number] Output: Urine Catheter Amount 1050 1700 Other: Urine Appearance Clear Sediment Uretheral (Fernandez) Clear Urine Color Straw Uretheral (Fernandez) Bright Yellow General appearance: morbidly obese Exam: Dry lips and mucous membrane No anxiety Feels weak and fatigued No telemetry events Right lower extremity redness much improved. Medical - PN: Obj Da - Labs CBC & Chem 7: 12/16/18 03:18 12/16/18 03:18 Labs: Abnormal Lab Results 12/16/18 12/16/18 12/16/18 03:18 03:18 03:18 WBC 16.3 H RBC 2.81 L Hgb 8.4 L Hct 26.9 L MCHC RDW 23.4 H Gran % 90.2 H Lymph % (Auto) 4.6 L Gran # 14.7 H Lymph # (Auto) 0.8 L PT 33.6 H INR 3.4 H Sodium Potassium Chloride BUN 25 H Creatinine 1.2 H Glucose Phosphorus 2.5 L AST 41 H Lactate Dehydrogenase 285 H Total Creatine Kinase C-Reactive Protein Albumin 2.9 L Albumin/Globulin Ratio 0.8 L Triglycerides 208 H 12/15/18 12/15/18 12/15/18 07:59 03:14 03:14 WBC RBC Hgb Hct MCHC RDW Gran % Lymph % (Auto) Gran # Lymph # (Auto) PT 48.4 H INR 5.4 H Sodium Potassium 3.1 L Chloride BUN 29 H Creatinine 1.5 H Glucose Phosphorus 2.3 L AST 67 H Lactate Dehydrogenase 312 H Total Creatine Kinase 763 H C-Reactive Protein Albumin 2.9 L Albumin/Globulin Ratio 0.8 L Triglycerides 246 H 12/15/18 12/14/18 12/14/18 03:14 11:57 03:24 WBC 12.3 H RBC 2.79 L Hgb 8.4 L Hct 27.1 L MCHC 30.9 L RDW 22.9 H Gran % 87.5 H Lymph % (Auto) 5.9 L Gran # 10.7 H Lymph # (Auto) 0.7 L PT INR Sodium Potassium Chloride 110 H BUN 30 H Creatinine 1.6 H Glucose 245 H Phosphorus AST Lactate Dehydrogenase Total Creatine Kinase 2437 H C-Reactive Protein Albumin Albumin/Globulin Ratio Triglycerides 12/14/18 12/14/18 12/14/18 03:24 03:24 03:24 WBC 22.4 H RBC 2.86 L Hgb 8.6 L Hct 27.8 L MCHC RDW 23.5 H Gran % 94.0 H Lymph % (Auto) 2.9 L Gran # 21.1 H Lymph # (Auto) 0.6 L PT 33.4 H INR 3.3 H Sodium 150 H Potassium Chloride 113 H BUN 32 H Creatinine 1.7 H Glucose 147 H Phosphorus 1.7 L AST 94 H Lactate Dehydrogenase 310 H Total Creatine Kinase C-Reactive Protein 29.5 H Albumin 3.1 L Albumin/Globulin Ratio 0.8 L Triglycerides 236 H 12/13/18 21:47 WBC RBC Hgb Hct MCHC RDW Gran % Lymph % (Auto) Gran # Lymph # (Auto) PT INR Sodium 146 H Potassium Chloride 110 H BUN 36 H Creatinine 1.8 H Glucose 204 H Phosphorus AST Lactate Dehydrogenase Total Creatine Kinase 3177 H C-Reactive Protein Albumin Albumin/Globulin Ratio Triglycerides Meds: Medications Albuterol Sulfate (Ventolin) 1.25 mg NEB Q6HP PRN PRN Reason: Shortness Of Breath Albuterol/Ipratropium (Duoneb) 3 ml NEB Q4HP PRN PRN Reason: Shortness Of Breath Allopurinol (Zyloprim) 100 mg PO [facility] Last Admin: 12/15/18 21:18 Dose: 100 mg Documented by: Atenolol (Tenormin) 50 mg PO DAILY [facility] Last Admin: 12/15/18 09:23 Dose: 50 mg Documented by: Bupropion HCl (Wellbutrin Sr) 150 mg PO BID [facility] Last Admin: 12/15/18 21:17 Dose: 150 mg Documented by: Carbidopa/Levodopa (Sinemet 25/100) 1 tab PO QHS [facility] Last Admin: 12/15/18 21:17 Dose: 1 tab Documented by: Diagnostic Test (Pha) (Accu-Chek) 1 each FS ACHS [facility] Last Admin: 12/16/18 07:30 Dose: 1 each Documented by: Digoxin (Lanoxin) 250 mcg PO DAILY@1400 [facility] Last Admin: 12/15/18 14:15 Dose: 250 mcg Documented by: Docusate Sodium (Colace) 100 mg PO BID [facility] Last Admin: 12/15/18 21:17 Dose: 100 mg Documented by: Famotidine (Pepcid) 20 mg IV [facility] Last Admin: 12/15/18 21:17 Dose: 20 mg Documented by: Furosemide (Lasix) 20 mg PO DAILY [facility] Last Admin: 12/15/18 09:23 Dose: 20 mg Documented by: Hydralazine HCl (Apresoline) 0 mg IV Q2HP PRN PRN Reason: Hypertension Last Admin: 12/15/18 00:26 Dose: 20 mg Documented by: Hydrochlorothiazide (Oretic) 12.5 mg PO DAILY [facility] Potassium Chloride 40 meq/ (Dextrose) 520 mls @ 130 mls/hr IV UD PRN PRN Reason: Potassium < 3 Magnesium Sulfate (Magnesium Sulfate) 2 gm in 50 mls @ 50 mls/hr IV UD PRN PRN Reason: Magnesium </= 1.6 Acetaminophen (Ofirmev) 650 mg in 65 mls @ 130 mls/hr IV Q6HP PRN PRN Reason: PAIN/FEVER > 101 Piperacillin Sod/Tazobactam (Sod 3.375 gm/ Dextrose) 50 mls @ 100 mls/hr IV Q6H [facility]; Protocol Last Infusion: 12/16/18 06:41 Dose: Infused Documented by: Vancomycin HCl 1,500 mg/ (Sodium Chloride) 500 mls @ 333.3 mls/hr IV Q24H [facility] Insulin Glargine (Lantus) 10 unit SQ DAILY [facility] Last Admin: 12/15/18 09:57 Dose: 10 units Documented by: Insulin Human Lispro (Humalog) 0 unit SQ ACHS [facility]; Protocol Last Admin: 12/16/18 07:30 Dose: Not Given Documented by: Lactulose (Cephulac) 10 gm PO DAILYP PRN PRN Reason: Constipation Last Admin: 12/15/18 09:25 Dose: 10 gm Documented by: Levothyroxine Sodium (Synthroid) 125 mcg PO ACB [facility] Last Admin: 12/16/18 07:31 Dose: 125 mcg Documented by: Losartan Potassium (Cozaar) 50 mg PO DAILY [facility] Methocarbamol (Robaxin) 500 mg PO TIDP PRN PRN Reason: Muscle Spasm Last Admin: 12/15/18 11:55 Dose: 500 mg Documented by: Metoprolol Tartrate (Lopressor) 5 mg IV Q2HP PRN PRN Reason: Tachyarrhythmias HR>110 Mupirocin (Bactroban Oint 2%) 1 dose NARES BID [facility] Last Admin: 12/15/18 21:18 Dose: 1 dose Documented by: Ondansetron HCl (Zofran) 4 mg IV Q4HP PRN PRN Reason: Nausea And Vomiting Arnuity Ellipta (Inhaler) 1 dose INH BID [facility] Last Admin: 12/15/18 21:18 Dose: 1 dose Documented by: Beclomethasone 80 Mcg/Actuation Inhaler 1 dose INH BID [facility] Last Admin: 12/15/18 21:18 Dose: Not Given Documented by: Mometasone Furoate [ Elocon] 0.1% Topical Ointment 1 dose TOPICAL DAILY [facility] Last Admin: 12/15/18 09:42 Dose: Not Given Documented by: Polyethylene Glycol (Miralax) 17 gm PO DAILYP PRN PRN Reason: Constipation Potassium Chloride (Kdur) 40 meq PO UD PRN PRN Reason: Potssium is 3-3.5 Potassium Chloride (Kdur) 40 meq PO UD PRN PRN Reason: Potassium < 3 [facility]) [facility] Last Admin: 12/15/18 07:47 Dose: 10 mg Documented by: Prochlorperazine (Compazine) 10 mg IV Q6HP PRN PRN Reason: Nausea And Vomiting Senna (Senokot) 2 tab PO HSP PRN PRN Reason: Constipation Sodium Chloride (Saline Flush) 10 ml IV Q8 [facility] Last Admin: 12/16/18 05:31 Dose: 10 ml Documented by: Tramadol HCl (Ultram) 50 mg PO Q8HP PRN PRN Reason: Pain Last Admin: 12/15/18 12:58 Dose: 50 mg Documented by: Vancomycin HCl (Vancomycin Per Pharmacy) 1 order IV [facility]; Protocol Warfarin Sodium (Coumadin Per Pharmacy) 1 order PO [facility] Medical - PN: A/P - Time Spent With Patient Total time spent is greater than 50% in coordination of care (as documented) at patient's floor/unit and/or counseling patient: 25 - 35 minutes (1) Severe sepsis with acute organ dysfunction Status: Chronic Assessment and plan: * Severe sepsis with acute organ dysfunction. Clinically improving on antibiotic coverage white count down from 35,000-> 16,000 * Right lower extremity cellulitis with leukemoid reaction. Clinically improving with aggressive antibiotic treatment * Rhabdomyolysis with MARILYN clinically improved. Creatinine down to 1.2. * Fall and weakness continue PT OT/nutrition support/SNF transfer coordination per case management * History of atrial fibrillation with RVR on beta-aida/Coumadin/digoxin. Currently rate controlled * Aspiration pneumonitis clinically improved * Oropharyngeal dysphagia * History of anemia * Obstructive sleep apnea on BiPAP at night * History of O2 dependent COPD managed as outpatient by Dr. Long. Steroid dependent. * History of psoriasis on methotrexate * History of Parkinson's on levodopa carbidopa * DM type II continue basal prandial insulin * History of hypertension continue ARB/beta-aida/thiazide * Morbid obesity * Hypothyroidism on thyroxine * History of anxiety depression * Full code * Prophylaxis Coumadin INR therapeutic Plan * De-escalate antibiotics in 24 to 48 hours * Continue aggressive PT OT/nutrition support/gait and safety eval * Anticipate transfer to SNF in 48 hours * Pre-existing well condition management and home meds Current Visit: No Medical - PN: Qual - VTE Deep Vein Thrombosis/Pulmonary Embolism Present on Admission: No
[2018-12-16] MEDS: MUPIROCIN OINT 2% 22GM NARES SCH ×2 (10:15→21:30)
[2018-12-16] MEDS: predniSONE 10 MG TABLET PO SCH (10:15)
[2018-12-16] MEDS: buPROPion 150 MG TAB.SR.12H PO SCH ×2 (10:16→21:31)
[2018-12-16] MEDS: HYDROCHLOROTHIAZIDE 12.5 MG CAPSULE PO SCH (10:16)
[2018-12-16] MEDS: FUROSEMIDE 40 MG TABLET PO SCH (10:16)
[2018-12-16] MEDS: ATENOLOL 50 MG TABLET PO SCH (10:16)
[2018-12-16] MEDS: DOCUSATE SODIUM 100 MG CAPSULE PO SCH ×2 (10:16→21:31)
[2018-12-16] MEDS: VANCOMYCIN 1,500 MG in 0.9 % SODIUM CHLORIDE 500 ML IV SCH (10:16)
[2018-12-16] MEDS: LOSARTAN 50 MG TABLET PO SCH (10:16)
[2018-12-16] MEDS: BECLOMETHASONE INH SCH ×2 (10:17→21:31)
[2018-12-16] MEDS: ARNUITY ELLIPTA INH SCH ×2 (10:17→21:30)
[2018-12-16] MEDS: INSULIN GLARGINE, HUMAN 1 UNIT/0.01 ML SQ SCH (10:17)
[2018-12-16] MEDS: MOMETASONE FUROATE 0.1% TOPICAL SCH (10:18)
[2018-12-16] MEDS: traMADol 50 MG TABLET PO PRN (10:55)
[2018-12-16 13:09] LABS: BCR/ABL Major SEE SEPERATE REPORT; BCR/ABL Minor SEE SEPERATE REPORT
[2018-12-16] MEDS: DIGOXIN 125 MCG TABLET PO SCH (14:05)
[2018-12-16] MEDS: LACTULOSE 20 GM/30 ML ORAL.SOL PO PRN (17:53)
[2018-12-16] MEDS: FAMOTIDINE/PF 20 MG/2 ML VIAL IV SCH (21:30)
[2018-12-16] MEDS: ALLOPURINOL 100 MG TABLET PO SCH (21:31)
[2018-12-16] MEDS: CARBIDOPA/LEVODOPA 25/100 TABLET PO SCH (21:31)
[2018-12-17] MEDS: PIPERACILLIN SODIUM/TAZOBACTAM 3.375 GM in DEXTROSE 5% IN WATER 50 ML IV SCH ×5 (00:09→22:56)
[2018-12-17] MEDS: 0.9 % SODIUM CHLORIDE 10 ML SYRINGE IV SCH ×3 (05:04→20:32)
[2018-12-17 06:41] LABS: INR 2.2 (0.9-1.1); Prothrombin Time 24.1 sec (11.9-14.5)
[2018-12-17] MEDS: VANCOMYCIN 1,500 MG in 0.9 % SODIUM CHLORIDE 500 ML IV SCH (09:00)
[2018-12-17] MEDS: INSULIN LISPRO 1 UNIT/0.01 ML UNIT SQ SCH ×4 (09:09→20:29)
[2018-12-17] MEDS: MOMETASONE FUROATE 0.1% TOPICAL SCH (09:29)
[2018-12-17 10:04] LABS: Basophils # (Auto) 0 K/mcL (0.0-0.3); Basophils % (Auto) 0.1 % (0.0-2.0); Eosinophils # (Auto) 0.5 K/mcL (0.0-0.7); Eosinophils % (Auto) 3.3 % (0.0-7.0); Hematocrit 29.8 % (36.0-48.0); Hemoglobin 9.1 g/dL (12.0-15.0); Lymphocytes # (Auto) 0.8 K/mcL (1.5-4.8); Lymphocytes % (Auto) 5.2 % (15.5-49.0); Mean Cell Volume 96.2 fL (80.0-100.0); Mean Corpuscular HGB Conc 30.7 g/dL (31.0-36.0); Mean Platelet Volume 9.4 fL (7.4-10.4); Monocytes # (Auto) 0.7 K/mcL (0.1-0.9); Monocytes % (Auto) 4.4 % (1.0-12.0); Platelet Count 294 K/mcL (140-440); Red Cell Distribution Width 23.2 % (11.5-14.5); WBC 16.2 K/mcL (4.5-11.0)
[2018-12-17] MEDS: predniSONE 10 MG TABLET PO SCH (10:20)
[2018-12-17] MEDS: ATENOLOL 50 MG TABLET PO SCH (10:20)
[2018-12-17] MEDS: LOSARTAN 50 MG TABLET PO SCH (10:20)
[2018-12-17] MEDS: HYDROCHLOROTHIAZIDE 12.5 MG CAPSULE PO SCH (10:20)
[2018-12-17] MEDS: DOCUSATE SODIUM 100 MG CAPSULE PO SCH ×2 (10:20→20:30)
[2018-12-17] MEDS: LEVOTHYROXINE 125 MCG TABLET PO SCH (10:20)
[2018-12-17] MEDS: BECLOMETHASONE INH SCH ×2 (10:21→20:50)
[2018-12-17] MEDS: INSULIN GLARGINE, HUMAN 1 UNIT/0.01 ML SQ SCH (10:21)
--- NOTE | 2018-12-17 10:26 | Internal Med Progress Note ---
Medical - PN: Subj Patient information: Note initiated : 12/17/18 at 10:23 am Service Date, if different from initiated Date: [] Patient: Mayra Blood 72 y/o F admitted on 12/13/18 for Found Down At Home. Chief Complaint: [] Interval history: Ms. Blood is a 72 year old F Whose family had not heard from her during the day so they had the police check on her and she was found down on the floor. It was felt she likely benefit 24 hours. She is normally on oxygen but did not have her oxygen on. Heart rate was 140 she has a history of A. fib and EMS had a temperature 101.6. In the ED she was evaluated she is nonverbal but awake and follows basic commands and also was noted to have erythema of her right lower extremity (of note she has had right lower extremity cellulitis in the past with sepsis on an inpatient note from the January 2015). History is difficult to obtain from patient. Sounds like she lives with her sister but she did state that her sister is out of town. Patient does not not remember where she fell in the house or when. Denies any hip or leg pain. Denies fever chills chest pain shortness of breath coughing. Right lower leg is red and she had a history of cellulitis treated in that right leg before 4 years ago. But she denies any tenderness in that leg. And it loo ks more chronic acute cellulitic. Patient states her right lower extremity is always red. She is slow to answer but does answer most questions and whisper. In the ED she was found to have been rhabdomyolysis with acute kidney injury and leukocytosis. She did state to nurse later that she fell on Thursday. 12/14 Feeling better. Mentally clear today, answering questions appropriately. States had a headache last night but none today. States she uses 2 L of oxygen day and night. She has a bit of a dry cough. Right leg is red but not tender, she denies any being red at home normally. 12/15 Poor sleep last night because of her chronic back pain. Otherwise no events. Still very weak. Has not worked very much with physical therapy yet. 12/16-patient feeling a lot better. Improved hemodynamics. Improved renal function. White count down from 36,000-16.3. Continue Zosyn. INR 3.4. Creatinine down to 1.2. Blood cultures negative so far. Continuing Zosyn and vancomycin. Patient feels remarkably weak. Case management coordinating a safe discharge plan likely to [facility]. Continue nutrition support/PT OT. Plan to de-escalate antibiotics to oral in 48 hours. /-patient sitting in chair. Only able to ambulate with assistance. Feels very weak however improved since previous day. Ongoing physical therapy. Confusion much improved. Tolerating diet. Improving. Stable hemodynamics and vitals. Transfer to medical floor today. De-escalate antibiotics in 24 hours. Potassium improved to 3.6 - Constitutional Vitals: Vital Signs Temp Pulse Resp BP Pulse Ox 97.7 F 57 L 24 H 142/75 95 12/17/18 08:00 12/17/18 03:34 12/17/18 08:00 12/17/18 08:00 12/17/18 08:00 Period Temp Pulse Resp BP Sys/Jacobson Pulse Ox Last 24 Hr 97.7 F-98.8 F 57-79 14-24 130-166/54-77 95-98 Intake and Output 12/16/18 12/17/18 12/17/18 21:59 05:59 13:59 Intake Total 410 100 Output Total 350 1400 Balance 60 -1300 Weight 274 lb 4.8 oz Intake & Output: Intake & Output 12/16/18 12/17/18 12/17/18 21:59 05:59 13:59 Intake Total 410 100 Output Total 350 1400 Balance 60 -1300 Weight 274 lb 4.8 oz Intake: IV 50 100 Zosyn 3.375 gm In Dextrose 5% 50 100 in Water 50 ml @ 100 mls/hr IV Q6H [facility] Rx#:[id number] Oral 360 Output: Urine Catheter Amount 350 1400 Other: Meal Dinner Percent of Meal Consumed 75% Feeding Ability Assist with Tray Set Up Urine Appearance Clear Clear Urine Color Bright Yellow Bright Yellow Urine Odor Normal General appearance: morbidly obese Exam: Intermittently confused No anxiety or distress nonlabored breathing Improving lymphedema Improved redness right lower extremity Medical - PN: Obj Da - Labs CBC & Chem 7: 12/17/18 09:12 12/16/18 03:18 Labs: Abnormal Lab Results 12/17/18 12/17/18 12/16/18 09:12 03:31 03:18 WBC 16.2 H RBC 3.10 L Hgb 9.1 L Hct 29.8 L MCHC 30.7 L RDW 23.2 H Gran % 87.0 H Lymph % (Auto) 5.2 L Gran # 14.1 H Lymph # (Auto) 0.8 L PT 24.1 H INR 2.2 H Potassium Chloride BUN 25 H Creatinine 1.2 H Glucose Phosphorus 2.5 L AST 41 H Lactate Dehydrogenase 285 H Total Creatine Kinase Albumin 2.9 L Albumin/Globulin Ratio 0.8 L Triglycerides 208 H 12/16/18 12/16/18 12/15/18 03:18 03:18 07:59 WBC 16.3 H RBC 2.81 L Hgb 8.4 L Hct 26.9 L MCHC RDW 23.4 H Gran % 90.2 H Lymph % (Auto) 4.6 L Gran # 14.7 H Lymph # (Auto) 0.8 L PT 33.6 H 48.4 H INR 3.4 H 5.4 H Potassium Chloride BUN Creatinine Glucose Phosphorus AST Lactate Dehydrogenase Total Creatine Kinase Albumin Albumin/Globulin Ratio Triglycerides 12/15/18 12/15/18 12/15/18 03:14 03:14 03:14 WBC 12.3 H RBC 2.79 L Hgb 8.4 L Hct 27.1 L MCHC 30.9 L RDW 22.9 H Gran % 87.5 H Lymph % (Auto) 5.9 L Gran # 10.7 H Lymph # (Auto) 0.7 L PT INR Potassium 3.1 L Chloride BUN 29 H Creatinine 1.5 H Glucose Phosphorus 2.3 L AST 67 H Lactate Dehydrogenase 312 H Total Creatine Kinase 763 H Albumin 2.9 L Albumin/Globulin Ratio 0.8 L Triglycerides 246 H 12/14/18 11:57 WBC RBC Hgb Hct MCHC RDW Gran % Lymph % (Auto) Gran # Lymph # (Auto) PT INR Potassium Chloride 110 H BUN 30 H Creatinine 1.6 H Glucose 245 H Phosphorus AST Lactate Dehydrogenase Total Creatine Kinase Albumin Albumin/Globulin Ratio Triglycerides Meds: Medications Albuterol Sulfate (Ventolin) 1.25 mg NEB Q6HP PRN PRN Reason: Shortness Of Breath Albuterol/Ipratropium (Duoneb) 3 ml NEB Q4HP PRN PRN Reason: Shortness Of Breath Allopurinol (Zyloprim) 100 mg PO HS [facility] Last Admin: 12/16/18 21:31 Dose: 100 mg Documented by: Atenolol (Tenormin) 50 mg PO DAILY [facility] Last Admin: 12/17/18 10:20 Dose: 50 mg Documented by: Bupropion HCl (Wellbutrin Sr) 150 mg PO BID [facility] Last Admin: 12/16/18 21:31 Dose: 150 mg Documented by: Carbidopa/Levodopa (Sinemet 25/100) 1 tab PO QHS [facility] Last Admin: 12/16/18 21:31 Dose: 1 tab Documented by: Diagnostic Test (Pha) (Accu-Chek) 1 each FS ACHS [facility] Last Admin: 12/17/18 09:03 Dose: 1 each Documented by: Digoxin (Lanoxin) 250 mcg PO DAILY@1400 [facility] Last Admin: 12/16/18 14:05 Dose: 250 mcg Documented by: Docusate Sodium (Colace) 100 mg PO BID [facility] Last Admin: 12/17/18 10:20 Dose: 100 mg Documented by: Famotidine (Pepcid) 20 mg IV HS [facility] Last Admin: 12/16/18 21:30 Dose: 20 mg Documented by: Furosemide (Lasix) 20 mg PO DAILY [facility] Last Admin: 12/16/18 10:16 Dose: 20 mg Documented by: Hydralazine HCl (Apresoline) 0 mg IV Q2HP PRN PRN Reason: Hypertension Last Admin: 12/15/18 00:26 Dose: 20 mg Documented by: Hydrochlorothiazide (Oretic) 12.5 mg PO DAILY [facility] Last Admin: 12/17/18 10:20 Dose: 12.5 mg Documented by: Potassium Chloride 40 meq/ (Dextrose) 520 mls @ 130 mls/hr IV UD PRN PRN Reason: Potassium < 3 Magnesium Sulfate (Magnesium Sulfate) 2 gm in 50 mls @ 50 mls/hr IV UD PRN PRN Reason: Magnesium </= 1.6 Acetaminophen (Ofirmev) 650 mg in 65 mls @ 130 mls/hr IV Q6HP PRN PRN Reason: PAIN/FEVER > 101 Piperacillin Sod/Tazobactam (Sod 3.375 gm/ Dextrose) 50 mls @ 100 mls/hr IV Q6H [facility]; Protocol Last Infusion: 12/17/18 05:35 Dose: Infused Documented by: Vancomycin HCl 1,500 mg/ (Sodium Chloride) 500 mls @ 333.3 mls/hr IV Q24H [facility] Last Admin: 12/17/18 09:00 Dose: 333.3 mls/hr Documented by: Insulin Glargine (Lantus) 10 unit SQ DAILY [facility] Last Admin: 12/17/18 10:21 Dose: 10 units Documented by: Insulin Human Lispro (Humalog) 0 unit SQ [facility]; Protocol Last Admin: 12/17/18 09:09 Dose: Not Given Documented by: Lactulose (Cephulac) 10 gm PO DAILYP PRN PRN Reason: Constipation Last Admin: 12/16/18 17:53 Dose: 10 gm Documented by: Levothyroxine Sodium (Synthroid) 125 mcg PO ACB [facility] Last Admin: 12/17/18 10:20 Dose: 125 mcg Documented by: Losartan Potassium (Cozaar) 50 mg PO DAILY [facility] Last Admin: 12/17/18 10:20 Dose: 50 mg Documented by: Methocarbamol (Robaxin) 500 mg PO TIDP PRN PRN Reason: Muscle Spasm Last Admin: 12/15/18 11:55 Dose: 500 mg Documented by: Metoprolol Tartrate (Lopressor) 5 mg IV Q2HP PRN PRN Reason: Tachyarrhythmias HR>110 Mupirocin (Bactroban Oint 2%) 1 dose NARES BID [facility] Last Admin: 12/16/18 21:30 Dose: 1 dose Documented by: Ondansetron HCl (Zofran) 4 mg IV Q4HP PRN PRN Reason: Nausea And Vomiting Arnuity Ellipta (Inhaler) 1 dose INH BID [facility] Last Admin: 12/16/18 21:30 Dose: 1 dose Documented by: Beclomethasone 80 Mcg/Actuation Inhaler 1 dose INH BID [facility] Last Admin: 12/17/18 10:21 Dose: Not Given Documented by: Mometasone Furoate [ Elocon] 0.1% Topical Ointment 1 dose TOPICAL DAILY [facility] Last Admin: 12/17/18 09:29 Dose: Not Given Documented by: Polyethylene Glycol (Miralax) 17 gm PO DAILYP PRN PRN Reason: Constipation Potassium Chloride (Kdur) 40 meq PO UD PRN PRN Reason: Potssium is 3-3.5 Potassium Chloride (Kdur) 40 meq PO UD PRN PRN Reason: Potassium < 3 [facility] Admin: 12/17/18 10:20 Dose: 10 mg Documented by: Prochlorperazine (Compazine) 10 mg IV Q6HP PRN PRN Reason: Nausea And Vomiting Senna (Senokot) 2 tab PO HSP PRN PRN Reason: Constipation Sodium Chloride (Saline Flush) 10 ml IV Q8 [facility] Last Admin: 12/17/18 05:04 Dose: 10 ml Documented by: Tramadol HCl (Ultram) 50 mg PO Q8HP PRN PRN Reason: Pain Last Admin: 12/16/18 10:55 Dose: 50 mg Documented by: Vancomycin HCl (Vancomycin Per Pharmacy) 1 order IV UD [facility]; Protocol Warfarin Sodium (Coumadin Per Pharmacy) 1 order PO UD [facility] Warfarin Sodium (Coumadin) 6 mg PO ONCE@1400 [facility] Stop: 12/17/18 14:01 Medical - PN: A/P - Time Spent With Patient Total time spent is greater than 50% in coordination of care (as documented) at patient's floor/unit and/or counseling patient: 25 - 35 minutes (1) Severe sepsis with acute organ dysfunction Status: Chronic Assessment and plan: * Severe sepsis with acute organ dysfunction. Clinically improving on antibiotic coverage white count continues to downtrend from a peak of 35,000 * Right lower extremity cellulitis with leukemoid reaction. Clinical improvement noted. De-escalate antibiotics in 24 hours * MARILYN secondary to severe sepsis endorgan dysfunction/rhabdomyolysis. Clinically improved. Creatinine down to 1.2. * Aspiration pneumonitis clinically improved * Fall and weakness continue PT OT/nutrition support/SNF transfer coordination per case management * History of atrial fibrillation with RVR on beta-aida/Coumadin/digoxin. Currently rate controlled * Oropharyngeal dysphagia, continue diet per ST recommendations * Normocytic anemia, stable. * Obstructive sleep apnea on BiPAP at night * History of O2 dependent COPD managed as outpatient by Dr. Long. Steroid dependent. * History of psoriasis on methotrexate * History of Parkinson's on levodopa carbidopa * DM type II continue basal prandial insulin * History of hypertension continue ARB/beta-aida/thiazide * Morbid obesity * Hypothyroidism on thyroxine * History of anxiety depression * Full code * Prophylaxis Coumadin INR therapeutic Plan * De-escalate ABX in 24 hours * Continue daily PT OT/nutrition support * Anticipate transfer to SNF in 24 hours * Pre-existing well condition management and home meds Current Visit: No Medical - PN: Qual - VTE Deep Vein Thrombosis/Pulmonary Embolism Present on Admission: No
[2018-12-17 10:31] LABS: ALT/SGPT 21 U/l (0-40); AST/SGOT 49 U/l (0-37); Albumin 2.7 gm/dL (3.2-5.2); Albumin/Globulin Ratio 0.7 (1.0-2.3); Alkaline Phosphatase 77 U/L (39-117); Bilirubin,Direct < 0.2 mg/dL (0.0-0.3); Bilirubin,Total 0.5 mg/dL (0.0-1.0); Blood Urea Nitrogen 26 mg/dl (8-23); Calcium 8.9 mg/dl (8.6-10.4); Carbon Dioxide 22 mmol/L (22-30); Chloride 97 mmol/L (96-108); Globulin 4.1 gm/dL (2.2-3.7); Glomerular Filtration Rate 42; Glucose 188 mg/dL (70-105); Lactate Dehydrogenase 342 U/L (94-250); Phosphorous 2.5 mg/dL (2.7-4.5); Triglycerides 214 mg/dl (<150); Uric Acid 3.7 mg/dL (2.5-8.0)
[2018-12-17] MEDS: buPROPion 150 MG TAB.SR.12H PO SCH ×2 (10:42→20:31)
[2018-12-17] MEDS: FUROSEMIDE 40 MG TABLET PO SCH (10:42)
[2018-12-17] MEDS: ARNUITY ELLIPTA INH SCH ×2 (10:43→20:31)
[2018-12-17] MEDS: MUPIROCIN OINT 2% 22GM NARES SCH ×2 (10:43→20:30)
[2018-12-17] MEDS ORDERED: METHOCARBAMOL 500 MG TABLET PO PRN (10:51)
[2018-12-17] MEDS ORDERED: traMADol 50 MG TABLET PO PRN (10:51)
[2018-12-17] MEDS ORDERED: ONDANSETRON 4 MG/2 ML VIAL IV PRN (10:51)
[2018-12-17] MEDS ORDERED: ACETAMINOPHEN 650 MG/65 ML BOTTLE IV PRN (10:51)
[2018-12-17] MEDS ORDERED: POTASSIUM CHLORIDE 20 MEQ TABLET PO PRN ×2 (10:51)
[2018-12-17] MEDS ORDERED: VANCOMYCIN PER PHARMACY IV SCH (10:51)
[2018-12-17] MEDS ORDERED: hydrALAZINE 20 MG/ML VIAL IV PRN (10:51)
[2018-12-17] MEDS ORDERED: POTASSIUM CHLORIDE 40 MEQ in DEXTROSE 5% IN WATER 500 ML IV PRN (10:51)
[2018-12-17] MEDS ORDERED: POLYETHYLENE GLYCOL 3350 17 GM PACKET PO PRN (10:51)
[2018-12-17] MEDS ORDERED: METOPROLOL TARTRATE 5 MG/5 ML VIAL IV PRN (10:51)
[2018-12-17] MEDS ORDERED: ALBUTEROL SULFATE 2.5 MG/3 ML NEBULIZER NEB PRN (10:51)
[2018-12-17] MEDS ORDERED: LACTULOSE 20 GM/30 ML ORAL.SOL PO PRN (10:51)
[2018-12-17] MEDS ORDERED: MAGNESIUM SULFATE 2 GM/50 ML BAG IV PRN (10:51)
[2018-12-17] MEDS ORDERED: PROCHLORPERAZINE 10 MG/2 ML VIAL IV PRN (10:51)
[2018-12-17] MEDS ORDERED: IPRATROPIUM/ALBUTEROL 3 ML AMPUL.NEB NEB PRN (10:51)
[2018-12-17] MEDS: DIGOXIN 125 MCG TABLET PO SCH (13:51)
[2018-12-17] MEDS ORDERED: WARFARIN 3 MG TABLET PO ONE ×2 (14:00)
[2018-12-17] MEDS: ALLOPURINOL 100 MG TABLET PO SCH (20:31)
[2018-12-17] MEDS: CARBIDOPA/LEVODOPA 25/100 TABLET PO SCH (20:31)
[2018-12-17] MEDS: FAMOTIDINE/PF 20 MG/2 ML VIAL IV SCH (20:32)
[2018-12-17] MEDS ORDERED: SENNOSIDES 1 TABLET PO PRN (21:00)
[2018-12-18] MEDS: PIPERACILLIN SODIUM/TAZOBACTAM 3.375 GM in DEXTROSE 5% IN WATER 50 ML IV SCH (05:35)
[2018-12-18] MEDS: 0.9 % SODIUM CHLORIDE 10 ML SYRINGE IV SCH ×3 (05:35→21:50)
[2018-12-18 06:10] LABS: INR 2.1 (0.9-1.1); Prothrombin Time 23.2 sec (11.9-14.5)
[2018-12-18 06:14] LABS: Hematocrit 26.7 % (36.0-48.0); Hemoglobin 8.7 g/dL (12.0-15.0); Mean Cell Volume 95.5 fL (80.0-100.0); Mean Corpuscular HGB Conc 32.4 g/dL (31.0-36.0); Mean Platelet Volume 9.5 fL (7.4-10.4); Platelet Count 283 K/mcL (140-440); Red Cell Distribution Width 22.8 % (11.5-14.5); WBC 13.1 K/mcL (4.5-11.0)
[2018-12-18 06:43] LABS: ALT/SGPT 19 U/l (0-40); AST/SGOT 61 U/l (0-37); Albumin 2.5 gm/dL (3.2-5.2); Albumin/Globulin Ratio 0.7 (1.0-2.3); Alkaline Phosphatase 77 U/L (39-117); Bilirubin,Direct < 0.2 mg/dL (0.0-0.3); Bilirubin,Total 0.4 mg/dL (0.0-1.0); Blood Urea Nitrogen 27 mg/dl (8-23); Calcium 8.8 mg/dl (8.6-10.4); Carbon Dioxide 24 mmol/L (22-30); Chloride 101 mmol/L (96-108); Globulin 3.6 gm/dL (2.2-3.7); Glomerular Filtration Rate 45; Glucose 68 mg/dL (70-105); Lactate Dehydrogenase 346 U/L (94-250); Phosphorous 3.1 mg/dL (2.7-4.5); Triglycerides 172 mg/dl (<150); Uric Acid 4.4 mg/dL (2.5-8.0)
[2018-12-18 06:55] LABS: Anisocytosis 3+ (NONE SEEN); Band Neutrophils % 2 % (0-10); Lymphocytes % 16 % (15-49); Monocytes % (Manual) 4 % (1-12); Platelet Estimate NORMAL (NORMAL); Polychromasia 1+ (NONE SEEN); RBC Morphology ABNORMAL (NORMAL); Segmented Neutrophils % 78 % (38-78)
[2018-12-18] MEDS: INSULIN LISPRO 1 UNIT/0.01 ML UNIT SQ SCH ×4 (08:14→22:00)
[2018-12-18] MEDS ORDERED: VANCOMYCIN 1,500 MG in 0.9 % SODIUM CHLORIDE 500 ML IV SCH (09:00)
[2018-12-18] MEDS: LOSARTAN 50 MG TABLET PO SCH (09:01)
[2018-12-18] MEDS: ATENOLOL 50 MG TABLET PO SCH (09:01)
[2018-12-18] MEDS: FUROSEMIDE 40 MG TABLET PO SCH (09:01)
[2018-12-18] MEDS: LEVOTHYROXINE 125 MCG TABLET PO SCH (09:29)
[2018-12-18] MEDS: predniSONE 10 MG TABLET PO SCH (09:44)
[2018-12-18] MEDS: buPROPion 150 MG TAB.SR.12H PO SCH ×2 (09:44→21:48)
[2018-12-18] MEDS: DOCUSATE SODIUM 100 MG CAPSULE PO SCH ×2 (09:45→21:49)
[2018-12-18] MEDS: INSULIN GLARGINE, HUMAN 1 UNIT/0.01 ML SQ SCH (09:45)
[2018-12-18] MEDS: HYDROCHLOROTHIAZIDE 12.5 MG CAPSULE PO SCH (09:45)
[2018-12-18] MEDS: ARNUITY ELLIPTA INH SCH ×2 (09:48→21:48)
[2018-12-18] MEDS: MOMETASONE FUROATE 0.1% TOPICAL SCH (09:49)
[2018-12-18] MEDS: MUPIROCIN OINT 2% 22GM NARES SCH ×2 (09:50→21:49)
[2018-12-18] MEDS: BECLOMETHASONE INH SCH ×2 (09:50→21:50)
--- NOTE | 2018-12-18 11:46 | Internal Med Progress Note ---
Medical - PN: Subj Patient information: Note initiated : 12/18/18 at 11:43 am Service Date, if different from initiated Date: [] Patient: Mayra Blood 73 y/o F admitted on 12/13/18 for Found Down At Home. Chief Complaint: [] Interval history: Ms. Blood is a 72 year old F Whose family had not heard from her during the day so they had the police check on her and she was found down on the floor. It was felt she likely benefit 24 hours. She is normally on oxygen but did not have her oxygen on. Heart rate was 140 she has a history of A. fib and EMS had a temperature 101.6. In the ED she was evaluated she is nonverbal but awake and follows basic commands and also was noted to have erythema of her right lower extremity (of note she has had right lower extremity cellulitis in the past with sepsis on an inpatient note from the January 2015). History is difficult to obtain from patient. Sounds like she lives with her sister but she did state that her sister is out of town. Patient does not not remember where she fell in the house or when. Denies any hip or leg pain. Denies fever chills chest pain shortness of breath coughing. Right lower leg is red and she had a history of cellulitis treated in that right leg before 4 years ago. But she denies any tenderness in that leg. And it loo ks more chronic acute cellulitic. Patient states her right lower extremity is always red. She is slow to answer but does answer most questions and whisper. In the ED she was found to have been rhabdomyolysis with acute kidney injury and leukocytosis. She did state to nurse later that she fell on Thursday. 12/14 Feeling better. Mentally clear today, answering questions appropriately. States had a headache last night but none today. States she uses 2 L of oxygen day and night. She has a bit of a dry cough. Right leg is red but not tender, she denies any being red at home normally. 12/15 Poor sleep last night because of her chronic back pain. Otherwise no events. Still very weak. Has not worked very much with physical therapy yet. 12/16-patient feeling a lot better. Improved hemodynamics. Improved renal function. White count down from 36,000-16.3. Continue Zosyn. INR 3.4. Creatinine down to 1.2. Blood cultures negative so far. Continuing Zosyn and vancomycin. Patient feels remarkably weak. Case management coordinating a safe discharge plan likely to [facility]. Continue nutrition support/PT OT. Plan to de-escalate antibiotics to oral in 48 hours. 8/-patient sitting in chair. Only able to ambulate with assistance. Feels very weak however improved since previous day. Ongoing physical therapy. Confusion much improved. Tolerating diet. Improving. Stable hemodynamics and vitals. Transfer to medical floor today. De-escalate antibiotics in 24 hours. Potassium improved to 3.6 12/18-patient doing well. White count of 13.1. Redness and tenderness resolved. Alert and ambulating. Tolerating diet. Denies active concerns. No overnight events or concerns per staff. INR therapeutic at 2.1. Creatinine improved to 1.2. Antibiotic de-escalate Rocephin. SNF transfer scheduled on Thursday. Continue PT OT/nutrition support - Constitutional Vitals: Vital Signs Temp Pulse Resp BP Pulse Ox 98.5 F 68 16 122/56 97 12/18/18 10:59 12/18/18 04:10 12/18/18 10:59 12/18/18 10:59 12/18/18 10:59 Period Temp Pulse Resp BP Sys/Jacobson Pulse Ox Last 24 Hr 97.5 F-99.0 F 65-99 16-22 110-134/43-65 95-97 Intake and Output 12/17/18 12/18/18 12/18/18 21:59 05:59 13:59 Intake Total 50 250 600 Output Total 800 400 Balance -750 -150 600 Weight 275 lb Intake & Output: Intake & Output 12/17/18 12/18/18 12/18/18 21:59 05:59 13:59 Intake Total 50 250 600 Output Total 800 400 Balance -750 -150 600 Weight 275 lb Intake: IV 50 50 Zosyn 3.375 gm In Dextrose 5% 50 50 in Water 50 ml @ 100 mls/hr IV Q6H [facility] Rx#:[id number] Oral 200 600 Output: Urine Catheter Amount 800 400 Other: Meal Dinner Breakfast Percent of Meal Consumed Refused 100% Feeding Ability Independent Urine Appearance Clear Uretheral (Fernandez) Clear Urine Color Bright Yellow Uretheral (Fernandez) Bright Yellow Stool Size Large Small Stool Color Brown Yellow Yellow Stool Consistency Soft Liquid Formed # Bowel Movements 1 General appearance: no acute distress Exam: Doing well No overnight events Morbidly obese Nonlabored breathing lower extremity no evidence of erythema or discharge Medical - PN: Obj Da - Labs CBC & Chem 7: 12/18/18 04:10 12/18/18 04:10 Labs: Abnormal Lab Results 12/18/18 12/18/18 12/18/18 04:10 04:10 04:10 WBC 13.1 H RBC 2.80 L Hgb 8.7 L Hct 26.7 L MCHC RDW 22.8 H Gran % Lymph % (Auto) Gran # Lymph # (Auto) Polychromasia 1+ A Anisocytosis 3+ A PT 23.2 H INR 2.1 H BUN 27 H Creatinine 1.2 H Glucose 68 L Phosphorus GGT 46 H AST 61 H Lactate Dehydrogenase 346 H Albumin 2.5 L Globulin Albumin/Globulin Ratio 0.7 L Triglycerides 172 H 12/17/18 12/17/18 12/17/18 09:12 09:12 03:31 WBC 16.2 H RBC 3.10 L Hgb 9.1 L Hct 29.8 L MCHC 30.7 L RDW 23.2 H Gran % 87.0 H Lymph % (Auto) 5.2 L Gran # 14.1 H Lymph # (Auto) 0.8 L Polychromasia Anisocytosis PT 24.1 H INR 2.2 H BUN 26 H Creatinine 1.3 H Glucose 188 H Phosphorus 2.5 L GGT 41 H AST 49 H Lactate Dehydrogenase 342 H Albumin 2.7 L Globulin 4.1 H Albumin/Globulin Ratio 0.7 L Triglycerides 214 H 12/16/18 12/16/18 12/16/18 03:18 03:18 03:18 WBC 16.3 H RBC 2.81 L Hgb 8.4 L Hct 26.9 L MCHC RDW 23.4 H Gran % 90.2 H Lymph % (Auto) 4.6 L Gran # 14.7 H Lymph # (Auto) 0.8 L Polychromasia Anisocytosis PT 33.6 H INR 3.4 H BUN 25 H Creatinine 1.2 H Glucose Phosphorus 2.5 L GGT AST 41 H Lactate Dehydrogenase 285 H Albumin 2.9 L Globulin Albumin/Globulin Ratio 0.8 L Triglycerides 208 H Meds: Medications Albuterol Sulfate (Ventolin) 1.25 mg NEB Q6HP PRN PRN Reason: Shortness Of Breath Albuterol/Ipratropium (Duoneb) 3 ml NEB Q4HP PRN PRN Reason: Shortness Of Breath Allopurinol (Zyloprim) 100 mg PO HS [facility] Last Admin: 12/17/18 20:31 Dose: 100 mg Documented by: Atenolol (Tenormin) 50 mg PO DAILY [facility] Last Admin: 12/18/18 09:01 Dose: 50 mg Documented by: Bupropion HCl (Wellbutrin Sr) 150 mg PO BID [facility] Last Admin: 12/18/18 09:44 Dose: 150 mg Documented by: Carbidopa/Levodopa (Sinemet 25/100) 1 tab PO QHS [facility] Last Admin: 12/17/18 20:31 Dose: 1 tab Documented by: Diagnostic Test (Pha) (Accu-Chek) 1 each FS ACHS [facility] Last Admin: 12/18/18 11:25 Dose: 1 each Documented by: Digoxin (Lanoxin) 250 mcg PO DAILY@1400 [facility] Last Admin: 12/17/18 13:51 Dose: 250 mcg Documented by: Docusate Sodium (Colace) 100 mg PO BID [facility] Last Admin: 12/18/18 09:45 Dose: 100 mg Documented by: Famotidine (Pepcid) 20 mg IV HS [facility] Last Admin: 12/17/18 20:32 Dose: 20 mg Documented by: Furosemide (Lasix) 20 mg PO DAILY [facility] Last Admin: 12/18/18 09:01 Dose: 20 mg Documented by: Hydralazine HCl (Apresoline) 0 mg IV Q2HP PRN PRN Reason: Hypertension Hydrochlorothiazide (Oretic) 12.5 mg PO DAILY [facility] Last Admin: 12/18/18 09:45 Dose: 12.5 mg Documented by: Potassium Chloride 40 meq/ (Dextrose) 520 mls @ 130 mls/hr IV UD PRN PRN Reason: Potassium < 3 Magnesium Sulfate (Magnesium Sulfate) 2 gm in 50 mls @ 50 mls/hr IV UD PRN PRN Reason: Magnesium </= 1.6 Acetaminophen (Ofirmev) 650 mg in 65 mls @ 130 mls/hr IV Q6HP PRN PRN Reason: PAIN/FEVER > 101 Piperacillin Sod/Tazobactam (Sod 3.375 gm/ Dextrose) 50 mls @ 100 mls/hr IV Q6H [facility]; Protocol Last Admin: 12/18/18 05:35 Dose: 100 mls/hr Documented by: Vancomycin HCl 1,500 mg/ (Sodium Chloride) 500 mls @ 333.3 mls/hr IV Q24H [facility] Last Admin: 12/18/18 09:52 Dose: 333.3 mls/hr Documented by: Insulin Glargine (Lantus) 10 unit SQ DAILY [facility] Last Admin: 12/18/18 09:45 Dose: 10 units Documented by: Insulin Human Lispro (Humalog) 0 unit SQ ACHS [facility]; Protocol Last Admin: 12/18/18 08:14 Dose: Not Given Documented by: Lactulose (Cephulac) 10 gm PO DAILYP PRN PRN Reason: Constipation Last Admin: 12/17/18 10:56 Dose: 10 gm Documented by: Levothyroxine Sodium (Synthroid) 125 mcg PO ACB [facility] Last Admin: 12/18/18 09:29 Dose: 125 mcg Documented by: Losartan Potassium (Cozaar) 50 mg PO DAILY [facility] Last Admin: 12/18/18 09:01 Dose: 50 mg Documented by: Methocarbamol (Robaxin) 500 mg PO TIDP PRN PRN Reason: Muscle Spasm Metoprolol Tartrate (Lopressor) 5 mg IV Q2HP PRN PRN Reason: Tachyarrhythmias HR>110 Mupirocin (Bactroban Oint 2%) 1 dose NARES BID [facility] Last Admin: 12/18/18 09:50 Dose: 1 dose Documented by: Ondansetron HCl (Zofran) 4 mg IV Q4HP PRN PRN Reason: Nausea And Vomiting Arnuity Ellipta (Inhaler) 1 dose INH BID [facility] Last Admin: 12/18/18 09:48 Dose: 1 dose Documented by: Beclomethasone 80 Mcg/Actuation Inhaler 1 dose INH BID [facility] Last Admin: 12/18/18 09:50 Dose: Not Given Documented by: Mometasone Furoate [ Elocon] 0.1% Topical Ointment 1 dose TOPICAL DAILY [facility] Last Admin: 12/18/18 09:49 Dose: 1 dose Documented by: Polyethylene Glycol (Miralax) 17 gm PO DAILYP PRN PRN Reason: Constipation Last Admin: 12/17/18 10:56 Dose: 17 gm Documented by: Potassium Chloride (Kdur) 40 meq PO UD PRN PRN Reason: Potssium is 3-3.5 Potassium Chloride (Kdur) 40 meq PO UD PRN PRN Reason: Potassium < 3 Prednisone (Prednisone) 10 mg PO QAC [facility] Last Admin: 12/18/18 09:44 Dose: 10 mg Documented by: Prochlorperazine (Compazine) 10 mg IV Q6HP PRN PRN Reason: Nausea And Vomiting Senna (Senokot) 2 tab PO HSP PRN PRN Reason: Constipation Sodium Chloride (Saline Flush) 10 ml IV Q8 [facility] Last Admin: 12/18/18 05:35 Dose: 10 ml Documented by: Tramadol HCl (Ultram) 50 mg PO Q8HP PRN PRN Reason: Pain Last Admin: 12/17/18 13:51 Dose: 50 mg Documented by: Vancomycin HCl (Vancomycin Per Pharmacy) 1 order IV UD [facility]; Protocol Warfarin Sodium (Coumadin Per Pharmacy) 1 order PO UD [facility] Warfarin Sodium (Coumadin) 6 mg PO ONCE@1400 ONE Stop: 12/18/18 14:01 Medical - PN: A/P - Time Spent With Patient Total time spent is greater than 50% in coordination of care (as documented) at patient's floor/unit and/or counseling patient: 25 - 35 minutes (1) Severe sepsis with acute organ dysfunction Status: Chronic Assessment and plan: * Severe sepsis with acute organ dysfunction. Clinically resolved * Right lower extremity cellulitis with leukemoid reaction. Clinically resol dann. White count down from 35,000-13 * MARILYN -clinically resolved. Creatinine down to 1.2. * Aspiration pneumonitis clinically resolved * Fall and weakness continue PT OT/nutrition support/SNF transfer Thursday * History of atrial fibrillation with RVR on beta-aida/Coumadin/digoxin. Currently rate controlled * Oropharyngeal dysphagia, continue diet per ST recommendations * Normocytic anemia, stable. * Obstructive sleep apnea on BiPAP at night * History of O2 dependent COPD managed as outpatient by Dr. Long. Steroid dependent. * History of psoriasis on methotrexate * History of Parkinson's on levodopa carbidopa * DM type II continue basal prandial insulin * History of hypertension continue ARB/beta-aida/thiazide * Morbid obesity * Hypothyroidism on thyroxine * History of anxiety depression * Full code * Prophylaxis Coumadin INR therapeutic Plan * DC vancomycin/Zosyn and switch to Rocephin * Continue daily PT OT/nutrition support * SNF transfer for posthospitalization rehab on Thursday * Continue pre-existing well condition management and home meds Current Visit: No Medical - PN: Qual - VTE Deep Vein Thrombosis/Pulmonary Embolism Present on Admission: No
[2018-12-18] MEDS: cefTRIAXone 2 GM in DEXTROSE 5% IN WATER 50 ML IV SCH (13:08)
[2018-12-18] MEDS ORDERED: WARFARIN 3 MG TABLET PO ONE (14:00)
[2018-12-18] MEDS: DIGOXIN 125 MCG TABLET PO SCH (15:25)
[2018-12-18] MEDS: ALLOPURINOL 100 MG TABLET PO SCH (21:48)
[2018-12-18] MEDS: CARBIDOPA/LEVODOPA 25/100 TABLET PO SCH (21:48)
[2018-12-18] MEDS: FAMOTIDINE/PF 20 MG/2 ML VIAL IV SCH (21:50)
[2018-12-19 05:49] LABS: Hematocrit 24.9 % (36.0-48.0); Hemoglobin 8.2 g/dL (12.0-15.0); Mean Cell Volume 94.5 fL (80.0-100.0); Mean Corpuscular HGB Conc 32.8 g/dL (31.0-36.0); Mean Platelet Volume 9.6 fL (7.4-10.4); Platelet Count 351 K/mcL (140-440); RBC 2.64 M/mcL (4.00-5.20); Red Cell Distribution Width 22.1 % (11.5-14.5); WBC 12.8 K/mcL (4.5-11.0)
[2018-12-19 05:51] LABS: INR 2.7 (0.9-1.1); Prothrombin Time 28.3 sec (11.9-14.5)
[2018-12-19] MEDS: 0.9 % SODIUM CHLORIDE 10 ML SYRINGE IV SCH ×3 (05:54→21:28)
[2018-12-19 06:21] LABS: Anisocytosis 3+ (NONE SEEN); Band Neutrophils % 3 % (0-10); Eosinophils % (Manual) 3 % (0-7); Lymphocytes % 9 % (15-49); Monocytes % (Manual) 4 % (1-12); Platelet Estimate NORMAL (NORMAL); RBC Morphology ABNORM (NORMAL); Segmented Neutrophils % 81 % (38-78)
[2018-12-19 06:31] LABS: ALT/SGPT 15 U/l (0-40); AST/SGOT 43 U/l (0-37); Albumin 2.4 gm/dL (3.2-5.2); Albumin/Globulin Ratio 0.6 (1.0-2.3); Alkaline Phosphatase 75 U/L (39-117); Bilirubin,Direct < 0.2 mg/dL (0.0-0.3); Bilirubin,Total 0.3 mg/dL (0.0-1.0); Blood Urea Nitrogen 29 mg/dl (8-23); Calcium 9.1 mg/dl (8.6-10.4); Carbon Dioxide 22 mmol/L (22-30); Chloride 104 mmol/L (96-108); Globulin 3.9 gm/dL (2.2-3.7); Glomerular Filtration Rate 45; Glucose 63 mg/dL (70-105); Lactate Dehydrogenase 316 U/L (94-250); Phosphorous 2.9 mg/dL (2.7-4.5); Triglycerides 192 mg/dl (<150); Uric Acid 6.2 mg/dL (2.5-8.0)
[2018-12-19] MEDS: LEVOTHYROXINE 125 MCG TABLET PO SCH (07:00)
[2018-12-19] MEDS: INSULIN LISPRO 1 UNIT/0.01 ML UNIT SQ SCH ×4 (07:00→21:34)
[2018-12-19] MEDS: LOSARTAN 50 MG TABLET PO SCH (08:12)
[2018-12-19] MEDS: predniSONE 10 MG TABLET PO SCH (08:13)
[2018-12-19] MEDS: ATENOLOL 50 MG TABLET PO SCH (08:14)
[2018-12-19] MEDS: buPROPion 150 MG TAB.SR.12H PO SCH ×2 (08:14→21:27)
[2018-12-19] MEDS: HYDROCHLOROTHIAZIDE 12.5 MG CAPSULE PO SCH (08:15)
[2018-12-19] MEDS: DOCUSATE SODIUM 100 MG CAPSULE PO SCH ×2 (08:15→21:31)
[2018-12-19] MEDS: FUROSEMIDE 40 MG TABLET PO SCH (08:16)
[2018-12-19] MEDS: MUPIROCIN OINT 2% 22GM NARES SCH ×2 (08:17→21:30)
[2018-12-19] MEDS: INSULIN GLARGINE, HUMAN 1 UNIT/0.01 ML SQ SCH (08:17)
[2018-12-19] MEDS: MOMETASONE FUROATE 0.1% TOPICAL SCH (08:18)
[2018-12-19] MEDS: ARNUITY ELLIPTA INH SCH ×2 (08:18→21:32)
[2018-12-19] MEDS: cefTRIAXone 2 GM in DEXTROSE 5% IN WATER 50 ML IV SCH (09:29)
--- NOTE | 2018-12-19 11:11 | Internal Med Progress Note ---
Medical - PN: Subj Patient information: Note initiated : 12/19/18 at 11:08 am Service Date, if different from initiated Date: [] Patient: Mayra Blood 73 y/o F admitted on 12/13/18 for Found Down At Home. Chief Complaint: [] Interval history: Ms. Blood is a 72 year old F Whose family had not heard from her during the day so they had the police check on her and she was found down on the floor. It was felt she likely benefit 24 hours. She is normally on oxygen but did not have her oxygen on. Heart rate was 140 she has a history of A. fib and EMS had a temperature 101.6. In the ED she was evaluated she is nonverbal but awake and follows basic commands and also was noted to have erythema of her right lower extremity (of note she has had right lower extremity cellulitis in the past with sepsis on an inpatient note from the January 2015). History is difficult to obtain from patient. Sounds like she lives with her sister but she did state that her sister is out of town. Patient does not not remember where she fell in the house or when. Denies any hip or leg pain. Denies fever chills chest pain shortness of breath coughing. Right lower leg is red and she had a history of cellulitis treated in that right leg before 4 years ago. But she denies any tenderness in that leg. And it loo ks more chronic acute cellulitic. Patient states her right lower extremity is always red. She is slow to answer but does answer most questions and whisper. In the ED she was found to have been rhabdomyolysis with acute kidney injury and leukocytosis. She did state to nurse later that she fell on Thursday. 12/14 Feeling better. Mentally clear today, answering questions appropriately. States had a headache last night but none today. States she uses 2 L of oxygen day and night. She has a bit of a dry cough. Right leg is red but not tender, she denies any being red at home normally. 12/15 Poor sleep last night because of her chronic back pain. Otherwise no events. Still very weak. Has not worked very much with physical therapy yet. 12/16-patient feeling a lot better. Improved hemodynamics. Improved renal function. White count down from 36,000-16.3. Continue Zosyn. INR 3.4. Creatinine down to 1.2. Blood cultures negative so far. Continuing Zosyn and vancomycin. Patient feels remarkably weak. Case management coordinating a safe discharge plan likely to [facility]. Continue nutrition support/PT OT. Plan to de-escalate antibiotics to oral in 48 hours. 8/-patient sitting in chair. Only able to ambulate with assistance. Feels very weak however improved since previous day. Ongoing physical therapy. Confusion much improved. Tolerating diet. Improving. Stable hemodynamics and vitals. Transfer to medical floor today. De-escalate antibiotics in 24 hours. Potassium improved to 3.6 12/18-patient doing well. White count of 13.1. Redness and tenderness resolved. Alert and ambulating. Tolerating diet. Denies active concerns. No overnight events or concerns per staff. INR therapeutic at 2.1. Creatinine improved to 1.2. Antibiotic de-escalate Rocephin. SNF transfer scheduled on Thursday. Continue PT OT/nutrition support 12/19-patient doing well. Anticipate SNF transfer in 24 hours. White count normalized. INR 2.7. Lower extremity redness/colitis resolved. Will transition to oral antibiotics in 24 hours on discharge. - Constitutional Vitals: Vital Signs Temp Pulse Resp BP Pulse Ox 99.1 F H 67 20 122/70 98 12/19/18 07:32 12/19/18 04:00 12/19/18 07:32 12/19/18 07:32 12/19/18 07:32 Period Temp Pulse Resp BP Sys/Jacobson Pulse Ox Last 24 Hr 98.1 F-99.5 F 62-73 16-20 105-122/49-70 96-98 Intake and Output 12/18/18 12/19/18 12/19/18 21:59 05:59 13:59 Intake Total 240 1140 Output Total 1700 900 Balance -1460 -900 1140 Weight 275 lb 256 lb Intake & Output: Intake & Output 12/18/18 12/19/18 12/19/18 21:59 05:59 13:59 Intake Total 240 1140 Output Total 1700 900 Balance -1460 -900 1140 Weight 275 lb 256 lb Intake: Oral 240 1140 Output: Urine Catheter Amount 1700 500 Void Amount 400 Other: Meal Lunch Breakfast Percent of Meal Consumed 100% 100% Feeding Ability Assist with Tray Set Up Independent Urine Appearance Clear Uretheral (Fernandez) Clear Urine Color Bright Yellow Uretheral (Fernandez) Bright Yellow Stool Size Large Stool Color Yellow Stool Consistency Liquid General appearance: no acute distress Exam: Alert oriented Unlabored breathing No lymphedema or swelling lower extremity Pendulous abdomen Medical - PN: Obj Da - Labs CBC & Chem 7: 12/19/18 04:00 12/19/18 04:00 Labs: Abnormal Lab Results 12/19/18 12/19/18 12/19/18 04:00 04:00 04:00 WBC 12.8 H RBC 2.64 L Hgb 8.2 L Hct 24.9 L MCHC RDW 22.1 H Gran % Lymph % (Auto) Gran # Lymph # (Auto) Seg Neutrophils % 81 H Lymphocytes % 9 L RBC Morphology Abnorm A Polychromasia Anisocytosis 3+ A PT 28.3 H INR 2.7 H BUN 29 H Creatinine 1.2 H Glucose 63 L Phosphorus GGT 47 H AST 43 H Lactate Dehydrogenase 316 H Albumin 2.4 L Globulin 3.9 H Albumin/Globulin Ratio 0.6 L Triglycerides 192 H 12/18/18 12/18/18 12/18/18 04:10 04:10 04:10 WBC 13.1 H RBC 2.80 L Hgb 8.7 L Hct 26.7 L MCHC RDW 22.8 H Gran % Lymph % (Auto) Gran # Lymph # (Auto) Seg Neutrophils % Lymphocytes % RBC Morphology Polychromasia 1+ A Anisocytosis 3+ A PT 23.2 H INR 2.1 H BUN 27 H Creatinine 1.2 H Glucose 68 L Phosphorus GGT 46 H AST 61 H Lactate Dehydrogenase 346 H Albumin 2.5 L Globulin Albumin/Globulin Ratio 0.7 L Triglycerides 172 H 12/17/18 12/17/18 12/17/18 09:12 09:12 03:31 WBC 16.2 H RBC 3.10 L Hgb 9.1 L Hct 29.8 L MCHC 30.7 L RDW 23.2 H Gran % 87.0 H Lymph % (Auto) 5.2 L Gran # 14.1 H Lymph # (Auto) 0.8 L Seg Neutrophils % Lymphocytes % RBC Morphology Polychromasia Anisocytosis PT 24.1 H INR 2.2 H BUN 26 H Creatinine 1.3 H Glucose 188 H Phosphorus 2.5 L GGT 41 H AST 49 H Lactate Dehydrogenase 342 H Albumin 2.7 L Globulin 4.1 H Albumin/Globulin Ratio 0.7 L Triglycerides 214 H Meds: Medications Albuterol Sulfate (Ventolin) 1.25 mg NEB Q6HP PRN PRN Reason: Shortness Of Breath Albuterol/Ipratropium (Duoneb) 3 ml NEB Q4HP PRN PRN Reason: Shortness Of Breath Allopurinol (Zyloprim) 100 mg PO [facility] Last Admin: 12/18/18 21:48 Dose: 100 mg Documented by: Atenolol (Tenormin) 50 mg PO DAILY [facility] Last Admin: 12/19/18 08:14 Dose: 50 mg Documented by: Bupropion HCl (Wellbutrin Sr) 150 mg PO BID [facility] Last Admin: 12/19/18 08:14 Dose: 150 mg Documented by: Carbidopa/Levodopa (Sinemet 25/100) 1 tab PO QHS [facility] Last Admin: 12/18/18 21:48 Dose: 1 tab Documented by: Diagnostic Test (Pha) (Accu-Chek) 1 each FS ACHS [facility] Last Admin: 12/19/18 06:57 Dose: 1 each Documented by: Digoxin (Lanoxin) 250 mcg PO DAILY@1400 [facility] Last Admin: 12/18/18 15:25 Dose: 250 mcg Documented by: Docusate Sodium (Colace) 100 mg PO BID [facility] Last Admin: 12/19/18 08:15 Dose: 100 mg Documented by: Famotidine (Pepcid) 20 mg IV HS [facility] Last Admin: 12/18/18 21:50 Dose: 20 mg Documented by: Furosemide (Lasix) 20 mg PO DAILY [facility] Last Admin: 12/19/18 08:16 Dose: 20 mg Documented by: Hydralazine HCl (Apresoline) 0 mg IV Q2HP PRN PRN Reason: Hypertension Hydrochlorothiazide (Oretic) 12.5 mg PO DAILY [facility] Last Admin: 12/19/18 08:15 Dose: 12.5 mg Documented by: Potassium Chloride 40 meq/ (Dextrose) 520 mls @ 130 mls/hr IV UD PRN PRN Reason: Potassium < 3 Magnesium Sulfate (Magnesium Sulfate) 2 gm in 50 mls @ 50 mls/hr IV UD PRN PRN Reason: Magnesium </= 1.6 Acetaminophen (Ofirmev) 650 mg in 65 mls @ 130 mls/hr IV Q6HP PRN PRN Reason: PAIN/FEVER > 101 Ceftriaxone Sodium 2 gm/ (Dextrose) 50 mls @ 100 mls/hr IV Q24H [facility]; Protocol Last Admin: 12/19/18 09:29 Dose: 100 mls/hr Documented by: Insulin Glargine (Lantus) 10 unit SQ DAILY [facility] Last Admin: 12/19/18 08:17 Dose: 10 units Documented by: Insulin Human Lispro (Humalog) 0 unit SQ [facility]; Protocol Last Admin: 12/19/18 07:00 Dose: Not Given Documented by: Lactulose (Cephulac) 10 gm PO DAILYP PRN PRN Reason: Constipation Last Admin: 12/17/18 10:56 Dose: 10 gm Documented by: Levothyroxine Sodium (Synthroid) 125 mcg PO ACB [facility] Last Admin: 12/19/18 07:00 Dose: 125 mcg Documented by: Losartan Potassium (Cozaar) 50 mg PO DAILY [facility] Last Admin: 12/19/18 08:12 Dose: 50 mg Documented by: Methocarbamol (Robaxin) 500 mg PO TIDP PRN PRN Reason: Muscle Spasm Metoprolol Tartrate (Lopressor) 5 mg IV Q2HP PRN PRN Reason: Tachyarrhythmias HR>110 Mupirocin (Bactroban Oint 2%) 1 dose NARES BID [facility] Last Admin: 12/19/18 08:17 Dose: 1 dose Documented by: Ondansetron HCl (Zofran) 4 mg IV Q4HP PRN PRN Reason: Nausea And Vomiting Arnuity Ellipta (Inhaler) 1 dose INH BID [facility] Last Admin: 12/19/18 08:18 Dose: 1 dose Documented by: Beclomethasone 80 Mcg/Actuation Inhaler 1 dose INH BID [facility] Last Admin: 12/18/18 21:50 Dose: Not Given Documented by: Mometasone Furoate [ Elocon] 0.1% Topical Ointment 1 dose TOPICAL DAILY [facility] Last Admin: 12/19/18 08:18 Dose: 1 dose Documented by: Polyethylene Glycol (Miralax) 17 gm PO DAILYP PRN PRN Reason: Constipation Last Admin: 12/17/18 10:56 Dose: 17 gm Documented by: Potassium Chloride (Kdur) 40 meq PO UD PRN PRN Reason: Potssium is 3-3.5 Last Admin: 12/18/18 15:23 Dose: 40 meq Documented by: Potassium Chloride (Kdur) 40 meq PO UD PRN PRN Reason: Potassium < 3 Prednisone (Prednisone) [address] [facility] Last Admin: 12/19/18 08:13 Dose: 10 mg Documented by: Prochlorperazine (Compazine) 10 mg IV Q6HP PRN PRN Reason: Nausea And Vomiting Senna (Senokot) 2 tab PO HSP PRN PRN Reason: Constipation Sodium Chloride (Saline Flush) 10 ml IV Q8 [facility] Last Admin: 12/19/18 05:54 Dose: 10 ml Documented by: Tramadol HCl (Ultram) 50 mg PO Q8HP PRN PRN Reason: Pain Last Admin: 12/17/18 13:51 Dose: 50 mg Documented by: Warfarin Sodium (Coumadin Per Pharmacy) [address] [facility] Medical - PN: A/P - Time Spent With Patient Total time spent is greater than 50% in coordination of care (as documented) at patient's floor/unit and/or counseling patient: 15 - 24 minutes (1) Severe sepsis with acute organ dysfunction Status: Chronic Assessment and plan: * Severe sepsis with acute organ dysfunction. White count down from 35,000-12. Clinically resolved * Right lower extremity cellulitis with leukemoid reaction. Clinically resolved. * MARILYN -clinically resolved. Creatinine down to baseline 1.2. * Aspiration pneumonitis clinically resolved * Fall and weakness continue PT OT/nutrition support/SNF transfer Thursday * Atrial fibrillation with RVR on beta-aida/Coumadin/digoxin. INR 2.3. Now rate controlled * Oropharyngeal dysphagia, continue diet per ST recommendations * Normocytic anemia, stable. * Obstructive sleep apnea on BiPAP at night * History of O2 dependent COPD managed as outpatient by Dr. Long. Steroid dependent. * History of psoriasis on methotrexate * History of Parkinson's on levodopa carbidopa * DM type II continue basal prandial insulin * History of hypertension continue ARB/beta-aida/thiazide * Morbid obesity * Hypothyroidism on thyroxine * History of anxiety depression * Full code * Prophylaxis Coumadin INR therapeutic Plan * Transition to oral antibiotics in 24-hour * Coumadin dosing based on INR * Continue daily PT OT/nutrition support * [facility] SNF transfer Thursday * Continue pre-existing well condition management and home meds Current Visit: No Medical - PN: Qual - VTE Deep Vein Thrombosis/Pulmonary Embolism Present on Admission: No
[2018-12-19] MEDS ORDERED: WARFARIN 1 MG TABLET PO ONE (15:00)
[2018-12-19] MEDS: DIGOXIN 125 MCG TABLET PO SCH (15:02)
[2018-12-19] MEDS: BECLOMETHASONE INH SCH ×2 (15:29→21:35)
[2018-12-19] MEDS: CARBIDOPA/LEVODOPA 25/100 TABLET PO SCH (21:27)
[2018-12-19] MEDS: ALLOPURINOL 100 MG TABLET PO SCH (21:27)
[2018-12-19] MEDS: FAMOTIDINE/PF 20 MG/2 ML VIAL IV SCH (21:28)
[2018-12-20 05:51] LABS: Hematocrit 26.9 % (36.0-48.0); Hemoglobin 8.8 g/dL (12.0-15.0); Mean Cell Volume 94.3 fL (80.0-100.0); Mean Corpuscular HGB Conc 32.7 g/dL (31.0-36.0); Mean Platelet Volume 9.3 fL (7.4-10.4); Platelet Count 354 K/mcL (140-440); RBC 2.85 M/mcL (4.00-5.20); WBC 10.7 K/mcL (4.5-11.0)
[2018-12-20 06:03] LABS: INR 2.9 (0.9-1.1)
[2018-12-20 06:08] LABS: ALT/SGPT 10 U/l (0-40); AST/SGOT 34 U/l (0-37); Albumin 2.4 gm/dL (3.2-5.2); Albumin/Globulin Ratio 0.6 (1.0-2.3); Alkaline Phosphatase 73 U/L (39-117); Bilirubin,Direct < 0.2 mg/dL (0.0-0.3); Bilirubin,Total 0.3 mg/dL (0.0-1.0); Blood Urea Nitrogen 27 mg/dl (8-23); Carbon Dioxide 23 mmol/L (22-30); Chloride 101 mmol/L (96-108); Glomerular Filtration Rate 50; Glucose 62 mg/dL (70-105); Lactate Dehydrogenase 262 U/L (94-250); Phosphorous 3.2 mg/dL (2.7-4.5); Triglycerides 183 mg/dl (<150); Uric Acid 7.1 mg/dL (2.5-8.0)
[2018-12-20 08:28] LABS: Anisocytosis 3+ (NONE SEEN); Band Neutrophils % 4 % (0-10); Basophils % (Manual) 3 % (0-2); Eosinophils % (Manual) 1 % (0-7); Lymphocytes % 9 % (15-49); Metamyelocytes % 3 % (0-0); Monocytes % (Manual) 7 % (1-12); Myelocytes % 1 % (0-0); Nucleated Red Blood Cells 1 % (0-0); Platelet Estimate NORMAL (NORMAL); Polychromasia 1+ (NONE SEEN); RBC Morphology ABNORM (NORMAL); Segmented Neutrophils % 72 % (38-78)
[2018-12-20] MEDS: INSULIN GLARGINE, HUMAN 1 UNIT/0.01 ML SQ SCH (08:45)
[2018-12-20] MEDS: ATENOLOL 50 MG TABLET PO SCH (08:46)
[2018-12-20] MEDS: LEVOTHYROXINE 125 MCG TABLET PO SCH (08:46)
[2018-12-20] MEDS: buPROPion 150 MG TAB.SR.12H PO SCH (08:47)
[2018-12-20] MEDS: LOSARTAN 50 MG TABLET PO SCH (08:47)
[2018-12-20] MEDS: HYDROCHLOROTHIAZIDE 12.5 MG CAPSULE PO SCH (08:48)
[2018-12-20] MEDS: predniSONE 10 MG TABLET PO SCH (08:48)
[2018-12-20] MEDS: FUROSEMIDE 40 MG TABLET PO SCH (08:49)
[2018-12-20] MEDS: MOMETASONE FUROATE 0.1% TOPICAL SCH (08:53)
[2018-12-20] MEDS: ARNUITY ELLIPTA INH SCH (08:53)
[2018-12-20] MEDS: MUPIROCIN OINT 2% 22GM NARES SCH (08:57)
[2018-12-20] MEDS: cefTRIAXone 2 GM in DEXTROSE 5% IN WATER 50 ML IV SCH ×2 (09:04→09:09)
[2018-12-20] MEDS: BECLOMETHASONE INH SCH (09:09)
[2018-12-20] MEDS: DOCUSATE SODIUM 100 MG CAPSULE PO SCH (09:10)
[2018-12-20] MEDS: INSULIN LISPRO 1 UNIT/0.01 ML UNIT SQ SCH ×2 (09:10→11:52)
[2018-12-20] MEDS: 0.9 % SODIUM CHLORIDE 10 ML SYRINGE IV SCH (09:11)
--- NOTE | 2018-12-20 10:12 | Discharge Summary ---
Medical - DS: Prov Patient information: Note initiated : 12/20/18 at 10:08 am Service Date, if different from initiated Date: [] Patient: Mayra Blood 73 y/o F admitted on 12/13/18 for Found Down At Home. Chief Complaint: [] Date of admission: 12/13/18 04:06 Discharge date: 12/20/18 Primary care physician: Alvin Guadarrama Consults: 12/13/18 09:45 Consult to Physician [CONS] Routine Comment: Consulting Provider: [place] [facility] Reason For Exam: Physician to Consult Medical - DS: Meds - Discharge Medications Prescriptions: Amoxicillin/Potassium Clav [Augmentin] 875 mg PO Q12H #10 tab Active and Home Medications: Home Medications blood sugar diagnostic strips 1 strip .ROUTE QIDP PRN 11/01/14 [History Confirmed 12/13/18 Last Taken 05/30/16 09:00] lancets 1 unit .ROUTE .MEDSUPPLY 11/01/14 [History Confirmed 09/23/18 Last Taken 05/30/16 09:00] oxygen-air delivery systems device 5 units INTRANASAL .MEDSUPPLY 11/01/14 [History Confirmed 09/23/18 Last Taken Unknown] Insulin Detemir [Levemir] 15 units SC QAM 01/17/15 [History Confirmed 12/13/18 Last Taken Unknown] front wheeled walker #1 each 03/05/15 [Rx Confirmed 09/23/18 Last Taken Unknown] Power Mobility WC #1 each 04/03/15 [Rx Confirmed 09/23/18 Last Taken Unknown] atenolol 25 mg tablet 25 mg PO QDAY #90 tab 07/06/15 [Rx Confirmed 12/13/18 Last Taken 05/30/16 09:00] blood sugar diagnostic strips See Dose Instructions .ROUTE .MEDSUPPLY #100 each 10/05/15 [Rx Confirmed 09/23/18 Last Taken 05/30/16 09:00] mometasone 0.1 % topical ointment 1 applic TOPICAL QDAY #45 g 04/01/16 [Rx Confirmed 12/13/18 Last Taken 05/30/16 09:00] betamethasone, augmented 0.05 % topical ointment 1 applic TOPICAL BID PRN #135 g 04/02/16 [Rx Confirmed 12/13/18 Last Taken 05/30/16 09:00] nebulizer #1 each 04/04/16 [Rx Confirmed 09/23/18 Last Taken Unknown] allopurinol 300 mg tablet 300 mg PO QHS #90 tab 06/29/17 [Rx Confirmed 12/13/18 Last Taken Unknown] bupropion HCl SR 150 mg tablet,12 hr sustained-release 150 mg PO BID #180 tab 06/29/17 [Rx Confirmed 12/13/18 Last Taken Unknown] pramipexole 0.125 mg tablet 0.125 mg PO QDAY #90 tab 06/29/17 [Rx Confirmed 12/13/18 Last Taken Unknown] pravastatin 10 mg tablet 10 mg PO QDAY #90 tab 06/29/17 [Rx Confirmed 12/13/18 Last Taken Unknown] spironolactone 25 mg tablet 25 mg PO BID #180 tab 06/29/17 [Rx Confirmed 12/13/18 Last Taken Unknown] digoxin 250 mcg tablet 250 mcg PO QDAY #90 tab 10/27/17 [Rx Confirmed 12/13/18 Last Taken Unknown] hydroxyzine HCl 10 mg tablet 10 mg PO QID PRN #90 tab 01/05/18 [Rx Confirmed 12/13/18 Last Taken Unknown] coal tar 2 % topical ointment 1 applic TOPICAL QDAY #107 g 02/01/18 [Rx Confirmed 12/13/18 Last Taken Unknown] nystatin 100,000 unit/gram topical powder 1 applic TOPICAL BID PRN #15 each 02/01/18 [Rx Confirmed 12/13/18 Last Taken Unknown] pilocarpine 5 mg tablet 5 mg PO TID #90 tab 02/03/18 [Rx Confirmed 12/13/18 Last Taken Unknown] zolpidem 10 mg tablet 10 mg PO QHS #90 tab 02/03/18 [Rx Confirmed 12/13/18 Last Taken Unknown] hydrocodone 5 mg-acetaminophen 325 mg tablet 1 tab PO Q4H PRN #60 tab 04/16/18 [Rx Confirmed 12/13/18 Last Taken Unknown] carbidopa 25 mg-levodopa 100 mg tablet 1 tab PO QHS #90 tab 04/23/18 [Rx Confirmed 12/13/18 Last Taken Unknown] furosemide 20 mg tablet 20 mg PO BID #180 tab 04/23/18 [Rx Confirmed 12/13/18 Last Taken Unknown] levothyroxine 125 mcg tablet 125 mcg PO QDAY #90 tab 04/23/18 [Rx Confirmed 12/13/18 Last Taken Unknown] losartan 100 mg-hydrochlorothiazide 25 mg tablet 1 tab PO QDAY #90 tab 04/23/18 [Rx Confirmed 12/13/18 Last Taken Unknown] metoclopramide 10 mg tablet 10 mg PO BID #180 tab 04/23/18 [Rx Confirmed 12/13/18 Last Taken Unknown] pantoprazole 40 mg tablet,delayed release 40 mg PO QDAY #90 tab 04/23/18 [Rx Confirmed 12/13/18 Last Taken Unknown] albuterol sulfate 1.25 mg/3 mL solution for nebulization 1.25 mg INHALATION Q6- 8H #360 vial 04/26/18 [Rx Confirmed 12/13/18 Last Taken Unknown] insulin glargine (U-100) 100 unit/mL (3 mL) subcutaneous pen 15 unit SUB-Q .COMPLEX #90 ml 04/28/18 [Rx Confirmed 12/13/18 Last Taken Unknown] Disabled parking permit #1 ea 04/29/18 [Rx Confirmed 09/23/18 Last Taken Unknown] beclomethasone diprop 80 mcg/actuation HFA breath activated aerosol 1 puff INHALATION Q12H #10.6 g 04/29/18 [Rx Confirmed 12/13/18 Last Taken Unknown] empagliflozin 25 mg tablet 25 mg PO QAM #90 tab 04/29/18 [Rx Confirmed 12/13/18 Last Taken Unknown] insulin lispro (U- 100) 100 unit/mL subcutaneous pen See Rx Instructions SUB-Q .COMPLEX #105 ml 04/29/18 [Rx Confirmed 12/13/18 Last Taken Unknown] methotrexate sodium 5 mg tablet 15 mg PO QWEEK tab 04/29/18 [History Confirmed 12/13/18 Last Taken Unknown] Arnuity Ellipta 1 puff INH BID 12/13/18 [History Confirmed 12/13/18 Last Taken Unknown] Fergon 1 tab PO BID 12/13/18 [History Confirmed 12/13/18 Last Taken Unknown] Jardiance 25 mg PO DAILY 12/13/18 [History Confirmed 12/13/18 Last Taken Unknown] Warfarin Sodium [Jantoven] 1 tab PO DAILY 12/13/18 [History Confirmed 12/13/18 Last Taken Unknown] Warfarin Sodium [Jantoven] 6 mg PO DAILY 12/13/18 [History Confirmed 12/13/18 Last Taken Unknown] predniSONE [Prednisone] 10 mg PO DAILY 12/13/18 [History Confirmed 12/13/18 Last Taken Unknown] Budesonide [Pulmicort Flexhaler] 2 puff INH BID 12/14/18 [History Confirmed 12/14/18 Last Taken Unknown] Amoxicillin/Potassium Clav [Augmentin] 875 mg PO Q12H #10 tab 12/20/18 [Rx Last Taken Unknown] Medical - DS: Hosp Hospital course: Discharge diagnosis * Right lower extremity cellulitis with leukemoid reaction. Clinically resolved. * Severe sepsis with acute organ dysfunction. WBC down from [id number]. Clinically resolved * MARILYN -clinically resolved. Creatinine down to baseline 1.1. * Aspiration pneumonitis clinically resolved * Fall and weakness continue PT OT/nutrition support/SNF discharge today for continued posthospitalization rehab * Atrial fibrillation with RVR on beta-aida/Coumadin/digoxin. INR 2.9. Continue daily Coumadin dosing based on INR. Now rate controlled * Oropharyngeal dysphagia, continue diet per ST recommendations * Normocytic anemia, stable. * Obstructive sleep apnea on BiPAP at night * Unstageable pressure ulcer right buttock 3 x 3 cm. Managed by wound care. Recommend outpatient wound care follow-up. Continue offloading and wound care recommendations * History of O2 dependent COPD managed as outpatient by Dr. Long. Steroid dependent. * History of psoriasis on methotrexate * History of Parkinson's on levodopa carbidopa * DM type II continue basal prandial insulin * History of hypertension continue ARB/beta-aida/thiazide * Morbid obesity * Hypothyroidism on thyroxine * History of anxiety depression Brief hospital course Ms. Blood is a 72 year old F Whose family had not heard from her during the day so they had the police check on her and she was found down on the floor. It was felt she likely benefit 24 hours. She is normally on oxygen but did not have her oxygen on. Heart rate was 140 she has a history of A. fib and EMS had a temperature 101.6. In the ED she was evaluated she is nonverbal but awake and follows basic commands and also was noted to have erythema of her right lower extremity (of note she has had right lower extremity cellulitis in the past with sepsis on an inpatient note from the January 2015). History is difficult to obtain from patient. Sounds like she lives with her sister but she did state that her sister is out of town. Patient does not not remember where she fell in the house or when. Denies any hip or leg pain. Denies fever chills chest pain shortness of breath coughing. Right lower leg is red and she had a history of cellulitis treated in that right leg before 4 years ago. But she denies any tenderness in that leg. And it looks more chronic acute cellulitic. Patient states her right lower extremity is always red. She is slow to answer but does answer most questions and whisper. In the ED she was found to have been rhabdomyolysis with acute kidney injury and leukocytosis. She did state to nurse later that she fell on Thursday. 12/14 Feeling better. Mentally clear today, answering questions appropriately. States had a headache last night but none today. States she uses 2 L of oxygen day and night. She has a bit of a dry cough. Right leg is red but not tender, she denies any being red at home normally. 12/15 Poor sleep last night because of her chronic back pain. Otherwise no events. Still very weak. Has not worked very much with physical therapy yet. 12/16-patient feeling a lot better. Improved hemodynamics. Improved renal function. White count down from 36,000-16.3. Continue Zosyn. INR 3.4. Creatinine down to 1.2. Blood cultures negative so far. Continuing Zosyn and vancomycin. Patient feels remarkably weak. Case management coordinating a safe discharge plan likely to [facility]. Continue nutrition support/PT OT. Plan to de-escalate antibiotics to oral in 48 hours. 12/17-patient sitting in chair. Only able to ambulate with assistance. Feels very weak however improved since previous day. Ongoing physical therapy. Confusion much improved. Tolerating diet. Improving. Stable hemodynamics and vitals. Transfer to medical floor today. De-escalate antibiotics in 24 hours. Potassium improved to 3.6 12/18-patient doing well. White count of 13.1. Redness and tenderness resolved. Alert and ambulating. Tolerating diet. Denies active concerns. No overnight events or concerns per staff. INR therapeutic at 2.1. Creatinine improved to 1.2. Antibiotic de-escalate Rocephin. SNF transfer scheduled on Thursday. Continue PT OT/nutrition support 12/19-patient doing well. Anticipate SNF transfer in 24 hours. White count normalized. INR 2.7. Lower extremity redness/colitis resolved. Will transition to oral antibiotics in 24 hours on discharge. 12/20-patient doing well. No overnight events. No concerns per staff. White count on 10,000. INR therapeutic at 2.9. Creatinine 1.1. Discharging to SNF for continued posthospitalization rehab/antibiotic coverage duration 10 days. Discharge diagnosis: . - Time Spent with Patient Total time spent providing and/or coordinating discharge services: Greater than 30 minutes Medical - DS: Exam - Constitutional Vitals: Vital Signs Temp Pulse Resp BP Pulse Ox 12/20/18 08:00 98.6 F 66 18 132/60 97 12/20/18 04:00 98.2 F 72 20 129/57 96 12/19/18 23:34 98.5 F 55 L 20 145/71 98 12/19/18 18:56 98.7 F 70 24 H 116/50 98 12/19/18 15:10 99.5 F H 64 17 122/56 96 12/19/18 12:00 99.1 F H 24 H 120/50 98 Intake and Output 12/19/18 12/20/18 12/20/18 21:59 05:59 13:59 Intake Total 720 480 Output Total 950 1450 Balance -230 -970 Intake: Oral 720 480 Output: Urine Catheter Amount 950 1450 Other: Urine Appearance Clear Clear Uretheral (Fernandez) Clear Clear Sediment Urine Color Bright Yellow Straw Uretheral (Fernandez) Straw Bright Yellow Stool Size Small Stool Color Brown Stool Consistency Loose # of times incontinent of 2 Bowels Weight 254 lb Medical - DS: Data Labs on day of discharge: Labs from last 24 hours 12/20/18 12/20/18 12/20/18 03:47 03:47 03:47 WBC 10.7 RBC 2.85 L Hgb 8.8 L Hct 26.9 L MCV 94.3 MCH 30.8 MCHC 32.7 RDW 22.0 H Plt Count 354 MPV 9.3 Total Counted 100 Seg Neutrophils % 72 Band Neutrophils % 4 Lymphocytes % 9 L Monocytes % (Manual) 7 Eosinophils % (Manual) 1 Basophils % (Manual) 3 H Metamyelocytes % 3 H Myelocytes % 1 H Nucleated RBCs 1 H Platelet Estimate Normal RBC Morphology Abnorm A Polychromasia 1+ A Anisocytosis 3+ A PT 30.0 H INR 2.9 H Sodium 136 Potassium 3.8 Chloride 101 Carbon Dioxide 23 Anion Gap 12.0 BUN 27 H Creatinine 1.1 GFR Calculation 50 Glucose 62 L Uric Acid 7.1 Calcium 9.0 Phosphorus 3.2 Magnesium 1.9 Total Bilirubin 0.3 Direct Bilirubin < 0.2 GGT 47 H AST 34 ALT 10 Alkaline Phosphatase 73 Lactate Dehydrogenase 262 H Total Protein 6.4 Albumin 2.4 L Globulin 4.0 H Albumin/Globulin Ratio 0.6 L Triglycerides 183 H Medical - DS: A/P - Patient/Caregiver Discharge Instructions Activity: as per physical therapy, increase activity as tolerated Diet: Consistent Carbohydrate Additional Instructions: Continue wound car as per wound team recommendations Follow-up PCP in 5 days Coumadin dosing based on INR Continue to cutis precautions/care Continue oral Augmentin for additional 5 days I recommend SNF physician to check INR, CBC BMP UA as a posthospital follow-up in 1 week. Continue aggressive bowel regimen to prevent constipation Continue fall precautions Continue aggressive PT OT evaluation and treatment at [facility]. ST eval and treatment if indicated All meals on chair sitting upright at 90 degrees to prevent aspiration Return to ER if worsening fever chills shortness of breath, diarrhea, bleeding Review risk and side effect profile of medications including antibiotics. Side effect may include mild to severe reaction including rash, diarrhea, cdiff and even which can be prevented by close follow-up with PCP and monitoring for side effects Refrain from smoking and alcohol Continue consistent carbohydrate diet and activity as advised Discussed importance of medication adherence Please review medication list with patient prior to discharge Please schedule follow-up with PCP/Providers prior to discharge and provide printouts Prescriptions: Amoxicillin/Potassium Clav [Augmentin] 875 mg PO Q12H #10 tab - Problem Maintenance (1) Severe sepsis with acute organ dysfunction Status: Chronic - Follow up Plan Follow up with: Orville Choi MD [Physician] - (Follow up with wound healing clinic in 1 week for right gluteal and coccyx pressure ulcers, pannus and skin fold skin issues.) Alvin Guadarrama MD [Primary Care Provider] - Disposition: [facility] Prognosis: Fair Rehab Potential: Fair Overall status at discharge: patient is progressing back to baseline Medical - DS: Qual - VTE Deep Vein Thrombosis/Pulmonary Embolism Present on Admission: No
== END 2018-12-20 13:30 | DRG 871 ==
LOC: ED 23:26 → ICU 12-13 04:06 → MEDSUR 12-17 15:30
PROVIDERS: ADMIT Internal Medicine; ATTEND Internal Medicine

== ENCOUNTER 2019-04-01 12:47 | Inpatient (IN) ==
[2019-04-01] MEDS ORDERED: 0.9 % SODIUM CHLORIDE 500 ML IV ONE (13:15)
[2019-04-01] MEDS ORDERED: ONDANSETRON 4 MG ODT TABLET SL ONE (13:15)
--- NOTE | 2019-04-01 13:19 | Emergency Department Note ---
Fall HPI - General Chief Complaint: Fall Stated Complaint: Fall Time Seen by Provider: 04/01/19 12:49 Source: patient, family, EMS Mode of arrival: EMS Limitations: no limitations - History of Present Illness HPI Narrative: 73-year-old female was brought in for weakness and recent fall. She is on Coumadin and digoxin for atrial fibrillation. Resting heart rate here is in the 30s which she states is not new for her however she is not a very good histo catrachito. In fact her short-term memory is not very helpful as she cannot tell me the events that led up to today. Denies loss of consciousness and hitting her head. In fact her daughter is present and gives me much more history. Apparently she has a history of mouth ulcers and bleeding and has been having nausea and vomiting, diarrhea for the last week. She does get home health and so there are medical records from that here. Her review of systems is unreliable based on what she is telling me and with the daughter is telling me. She notes that the patient has been confused and acting erratic - Related Data Home Medications Medication Instructions Recorded Confirmed blood sugar diagnostic 1 strip .ROUTE QIDP PRN 11/01/14 03/22/19 lancets 1 unit .ROUTE .MEDSUPPLY 11/01/14 03/22/19 oxygen-air delivery systems 5 units INTRANASAL .MEDSUPPLY 11/01/14 03/22/19 Insulin Detemir [Levemir] 15 units SC QAM 01/17/15 03/22/19 methotrexate sodium 5 mg tablet 15 mg PO QWEEK tab 04/29/18 03/22/19 albuterol sulfate 1.25 mg/3 mL 1.25 mg INHALATION Q6-8H vial 03/22/19 solution for nebulization ferrous gluconate 225 mg (27 mg PO BID tab 03/22/19 iron) tablet fluticasone furoate 100 1 inh INHALATION BID each 03/22/19 03/22/19 mcg/actuation blister powder for inhalation furosemide 20 mg tablet 20 mg PO QAM tab 03/22/19 hydrocodone 5 mg-acetaminophen 325 1 tab PO Q4H PRN tab 03/22/19 03/22/19 mg tablet insulin glargine 100 unit/mL (3 15 unit SUB-Q .COMPLEX ml 03/22/19 mL) subcutaneous pen magnesium hydroxide 400 mg/5 mL 30 ml PO QDAY PRN ml 03/22/19 03/22/19 oral suspension prednisone 10 mg tablet 10 mg PO .QOD tab 03/22/19 03/22/19 warfarin 1 mg tablet 3 mg PO .2xw tab 03/22/19 03/22/19 warfarin 6 mg tablet 6 mg PO .5xw tab 03/22/19 03/22/19 Previous Rx's Medication Instructions Recorded front wheeled walker #1 each 03/05/15 Power Mobility WC #1 each 04/03/15 atenolol 25 mg tablet 25 mg PO QDAY #90 tab 07/06/15 blood sugar diagnostic See Dose Instructions .ROUTE 10/05/15 .MEDSUPPLY #100 each mometasone 0.1 % topical ointment 1 applic TOPICAL QDAY #45 g 04/01/16 nebulizer #1 each 04/04/16 allopurinol 300 mg tablet 300 mg PO QHS #90 tab 06/29/17 bupropion HCl 150 mg tablet,12 hr 150 mg PO BID #180 tab 06/29/17 sustained-release pramipexole 0.125 mg tablet 0.125 mg PO QDAY #90 tab 06/29/17 pravastatin 10 mg tablet 10 mg PO QDAY #90 tab 06/29/17 spironolactone 25 mg tablet 25 mg PO BID #180 tab 06/29/17 digoxin 250 mcg (0.25 mg) tablet 250 mcg PO QDAY #90 tab 10/27/17 coal tar 2 % topical ointment 1 applic TOPICAL QDAY #107 g 02/01/18 nystatin 100,000 unit/gram topical 1 applic TOPICAL BID PRN #15 each 02/01/18 powder pilocarpine HCl 5 mg tablet 5 mg PO TID #90 tab 02/03/18 carbidopa 25 mg-levodopa 100 mg 1 tab PO QHS #90 tab 04/23/18 tablet levothyroxine 125 mcg tablet 125 mcg PO QDAY #90 tab 04/23/18 losartan 100 1 tab PO QDAY #90 tab 04/23/18 mg-hydrochlorothiazide 25 mg tablet metoclopramide HCl 10 mg tablet 10 mg PO BID #180 tab 04/23/18 pantoprazole 40 mg tablet,delayed 40 mg PO QDAY #90 tab 04/23/18 release Disabled [address] permit #1 ea 04/29/18 empagliflozin 25 mg tablet 25 mg PO QAM #90 tab 04/29/18 insulin lispro 100) 100 unit/mL See Rx Instructions SUB-Q .COMPLEX 04/29/18 subcutaneous pen #105 ml Allergies Allergy/AdvReac Type Severity Reaction Status Date / Time Erythromycin Base AdvReac Mild Nausea Verified 04/01/19 12:47 [From Erythrocin] Review of Systems Limitations: ROS unobtainable due to patients medical condition Fall PMH - Past Medical History Attestation: Yes: The following information was validated with the patient. [facility] Narrative: Family History (Last Reviewed 03/22/19 @ 12:30 by Teddy Long MD) Sister Malignant neoplasm of cervix Brother Chronic obstructive pulmonary disease Postinflammatory pulmonary fibrosis Schizophrenia Unknown Type 2 diabetes mellitus Cardiac disease Medical History (Last Reviewed 03/22/19 @ 12:30 by Teddy Long MD) Non-healing open wound of toe (Chronic) Depression (Chronic) Hypercholesteremia (Chronic) Recurrent infections (Chronic) Rheumatic fever (Resolved) Sleep apnea (Chronic) Hiatal hernia (Chronic) KATY (obstructive sleep apnea) (Chronic) Right supraspinatus tendinitis (Chronic) Cellulitis (Chronic) Severe sepsis with acute organ dysfunction (Chronic) Diabetes follow-up (Chronic) Ankle fracture, right (Chronic) Low back strain (Chronic) Skin ulcer due to diabetes mellitus (Chronic) Restless leg syndrome (Chronic) Psoriasis (Chronic) Lung disease (Chronic) Hypertension, essential (Chronic) Hyperlipidemia (Chronic) Type 2 diabetes mellitus (Chronic) Cystitides, interstitial, chronic (Chronic) Congestive heart failure (Chronic) Chronic obstruct airways disease (Chronic) Atrial fibrillation (Chronic) Arthritis (Chronic) Anemia (Chronic) Acid reflux (Chronic) Anticoagulation excessive (Resolved) Chest pain (Resolved) Chronic bronchitis with acute exacerbation (Resolved) Hematuria of undiagnosed cause (Resolved) Hypercholesterolemia (Resolved) Past Surgical History (Last Reviewed 03/22/19 @ 12:30 by Teddy Long MD) History of dilation and curettage (Chronic) History of foot surgery (Chronic) History of tonsillectomy (Chronic) Medical history: Reports: atrial fibrillation, DM, other (Obstructive sleep apnea) - Social History smoking status: Former smoker Alcohol use: Reports: None Physical Exam Obese female wearing oxygen nasal cannula. No acute distress. Normocephalic atraumatic. Conjunctive are clear sclera white nonicteric. No nasal discharge or congestion. Oropharynx pink with dry buccal mucosa. Posterior pharynx with dark red dried blood throughout and and it does appear she is got a posterior scab over ulcer the back of her throat. I do not see any current bleeding. Neck is supple without lymphadenopathy thyromegaly or carotid bruit. Heart is with regular rhythm but bradycardic. Rhythm strip confirms but she may be in A. fib with escape rhythm. Lungs are basically clear to auscultation bilaterally with her size limits auscultation. Abdomen soft nontender nondistended. I do not see significant pedal edema. She does have some short-term memory loss and is a poor historian. However she is alert and awake Limitations: no limitations Course Vital Signs Temperature 98.4 F 04/01/19 12:47 Pulse Rate 40 L 04/01/19 12:47 Respiratory Rate 20 04/01/19 12:47 Blood Pressure 141/26 04/01/19 12:47 Pulse Oximetry (%) 87 L 04/01/19 12:47 Temperature 97.1 F 04/01/19 18:48 Pulse Rate 32 L 04/01/19 18:48 Respiratory Rate 20 04/01/19 19:01 Blood Pressure 128/81 04/01/19 18:48 Pulse Oximetry (%) 100 04/01/19 19:01 Fall - Lab Data Lab results reviewed: Yes I reviewed the patient's lab results. Result diagrams: 04/01/19 13:25 04/01/19 13:22 Lab Results 04/01/19 04/01/19 04/01/19 Range/Units 13:22 13:22 13:22 WBC (4.5-11.0) K/mcL RBC (4.00-5.20) M/mcL Hgb (12.0-15.0) g/dL Hct (36.0-48.0) % POC Hct (36.0-48.0) % MCV (80.0-100.0) fL MCH (26.0-34.0) pg MCHC (31.0-36.0) g/dL RDW (11.5-14.5) % Plt Count (140-440) K/mcL MPV (7.4-10.4) fL Gran % (38.0-78.0) % Lymph % (Auto) (15.5-49.0) % [place] % (Auto) (1.0-12.0) % Eos % (Auto) (0.0-7.0) % Baso % (Auto) (0.0-2.0) % Gran # (1.8-8.0) K/mcL Lymph # (Auto) (1.5-4.8) K/mcL [place] # (Auto) (0.1-0.9) K/mcL Eos # (Auto) (0.0-0.7) K/mcL Baso # (Auto) (0.0-0.3) K/mcL PT 43.5 H (11.9-14.5) sec INR 4.7 H (0.9-1.1) VBG Lactic Acid (0.5-2.0) mmol/L POC Sodium (133-145) mmol/L Sodium 132 L (133-145) mmol/L POC Potassium (3.3-5.1) mmol/L Potassium 6.7 H* (3.3-5.1) mmol/L POC Chloride (96-108) mmol/L Chloride 91 L (96-108) mmol/L Carbon Dioxide 21 L (22-30) mmol/L POC Total CO2 (22-30) mmol/L Anion Gap 20.0 H (8-16) POC BUN (8-23) mg/dl BUN 103 H* (8-23) mg/dl Creatinine 6.8 H* (0.6-1.1) mg/dl POC Creatinine (0.6-1.1) mg/dl GFR Calculation 6 Glucose 108 H (70-105) mg/dL POC Glucose (70-105) mg/dL Calcium 9.2 (8.6-10.4) mg/dl POC WB Ioniz Calcium (1.16-1.32) mmol/L Magnesium 4.0 H* (1.6-2.5) mg/dL Total Bilirubin 0.5 (0.0-1.0) mg/dL AST 16 (0-37) U/l ALT 8 (0-40) U/l Alkaline Phosphatase 66 (39-117) U/L Total Protein 6.9 (5.9-8.4) gm/dL Albumin 3.7 (3.2-5.2) gm/dL Globulin 3.2 (2.2-3.7) gm/dL Albumin/Globulin Ratio 1.2 (1.0-2.3) Vitamin K TNP Digoxin ng/mL Digoxin Dose Digox Last Dose Time 04/01/19 04/01/19 04/01/19 Range/Units 13:23 13:25 13:25 WBC 12.2 H (4.5-11.0) K/mcL RBC 2.43 L (4.00-5.20) M/mcL Hgb 7.5 L (12.0-15.0) g/dL Hct 23.0 L (36.0-48.0) % POC Hct (36.0-48.0) % MCV 94.8 (80.0-100.0) fL MCH 30.9 (26.0-34.0) pg MCHC 32.5 (31.0-36.0) g/dL RDW 22.6 H (11.5-14.5) % Plt Count 372 (140-440) K/mcL MPV 9.0 (7.4-10.4) fL Gran % 94.7 H (38.0-78.0) % Lymph % (Auto) 3.6 L (15.5-49.0) % [place] % (Auto) 1.4 (1.0-12.0) % Eos % (Auto) 0.2 (0.0-7.0) % Baso % (Auto) 0.1 (0.0-2.0) % Gran # 11.6 H (1.8-8.0) K/mcL Lymph # (Auto) 0.4 L (1.5-4.8) K/mcL [place] # (Auto) 0.2 (0.1-0.9) K/mcL Eos # (Auto) 0 (0.0-0.7) K/mcL Baso # (Auto) 0 (0.0-0.3) K/mcL PT (11.9-14.5) sec INR (0.9-1.1) VBG Lactic Acid 2.1 H (0.5-2.0) mmol/L POC Sodium (133-145) mmol/L Sodium (133-145) mmol/L POC Potassium (3.3-5.1) mmol/L Potassium (3.3-5.1) mmol/L POC Chloride (96-108) mmol/L Chloride (96-108) mmol/L Carbon Dioxide (22-30) mmol/L POC Total CO2 (22-30) mmol/L Anion Gap (8-16) POC BUN (8-23) mg/dl BUN (8-23) mg/dl Creatinine (0.6-1.1) mg/dl POC Creatinine (0.6-1.1) mg/dl GFR Calculation Glucose (70-105) mg/dL POC Glucose (70-105) mg/dL Calcium (8.6-10.4) mg/dl POC WB Ioniz Calcium (1.16-1.32) mmol/L Magnesium (1.6-2.5) mg/dL Total Bilirubin (0.0-1.0) mg/dL AST (0-37) U/l ALT (0-40) U/l Alkaline Phosphatase (39-117) U/L Total Protein (5.9-8.4) gm/dL Albumin (3.2-5.2) gm/dL Globulin (2.2-3.7) gm/dL Albumin/Globulin Ratio (1.0-2.3) Vitamin K Digoxin 5.1 H* ng/mL Digoxin Dose Not Reportable Digox Last Dose Time Not Reportable 04/01/19 Range/Units 13:42 WBC (4.5-11.0) K/mcL RBC (4.00-5.20) M/mcL Hgb (12.0-15.0) g/dL Hct (36.0-48.0) % POC Hct 26.0 L (36.0-48.0) % MCV (80.0-100.0) fL MCH (26.0-34.0) pg MCHC (31.0-36.0) g/dL RDW (11.5-14.5) % Plt Count (140-440) K/mcL MPV (7.4-10.4) fL Gran % (38.0-78.0) % Lymph % (Auto) (15.5-49.0) % [place] % (Auto) (1.0-12.0) % Eos % (Auto) (0.0-7.0) % Baso % (Auto) (0.0-2.0) % Gran # (1.8-8.0) K/mcL Lymph # (Auto) (1.5-4.8) K/mcL [place] # (Auto) (0.1-0.9) K/mcL Eos # (Auto) (0.0-0.7) K/mcL Baso # (Auto) (0.0-0.3) K/mcL PT (11.9-14.5) sec INR (0.9-1.1) VBG Lactic Acid (0.5-2.0) mmol/L POC Sodium 129 L (133-145) mmol/L Sodium (133-145) mmol/L POC Potassium 6.8 H* (3.3-5.1) mmol/L Potassium (3.3-5.1) mmol/L POC Chloride 95 L (96-108) mmol/L Chloride (96-108) mmol/L Carbon Dioxide (22-30) mmol/L POC Total CO2 26 (22-30) mmol/L Anion Gap (8-16) POC BUN 118 H* (8-23) mg/dl BUN (8-23) mg/dl Creatinine (0.6-1.1) mg/dl POC Creatinine 7.8 H* (0.6-1.1) mg/dl GFR Calculation Glucose (70-105) mg/dL POC Glucose 100 (70-105) mg/dL Calcium (8.6-10.4) mg/dl POC WB Ioniz Calcium 1.04 L (1.16-1.32) mmol/L Magnesium (1.6-2.5) mg/dL Total Bilirubin (0.0-1.0) mg/dL AST (0-37) U/l ALT (0-40) U/l Alkaline Phosphatase (39-117) U/L Total Protein (5.9-8.4) gm/dL Albumin (3.2-5.2) gm/dL Globulin (2.2-3.7) gm/dL Albumin/Globulin Ratio (1.0-2.3) Vitamin K Digoxin ng/mL Digoxin Dose Digox Last Dose Time - EKG Data EKG attestation: Yes I reviewed and interpreted this EKG., Yes There are no EKG findings of acute coronary syndrome, Yes This EKG will be read by washer and capper machine operator EKG results narrative: EKG shows a rate of 34 right bundle branch block junctional escape rhythm noted. I do not see any P waves-I compared this to previous back in November where she had a atrial fibrillation with rapid ventricular response and a rate of 110 Disposition Pt seen by AMUSEMENT RIDE OPERATOR/PA only: No Clinical Impression: Junctional escape rhythm, Supratherapeutic INR, Hyperkalemia, Hypermagnesemia, Lactic acidosis Syncope Qualifiers: Syncope type: unspecified Qualified Code(s): R55 - Syncope and collapse Anemia Qualifiers: Anemia type: unspecified type Qualified Code(s): D64.9 - Anemia, unspecified Digoxin overdose Qualifiers: Encounter type: initial encounter Injury intent: undetermined intent Qualified Code(s): T46.0X4A - Poisoning by cardiac-stimulant glycosides and drugs of similar action, undetermined, initial encounter Acute kidney failure Qualifiers: Acute renal failure type: unspecified Qualified Code(s): N17.9 - Acute kidney failure, unspecified Summary: Work-up ordered. Start just a little bit of IV fluids with normal saline 500 bolus. Differential diagnosis includes infection, drug overdose (she is on digoxin and atenolol and Coumadin) metabolic issues-like blood sugar problems. EKG confirms junctional escape rhythm with a rate in the 30s. This could be secondary to sinus suppression from beta-aida usage or overdose. Regardless she is still in atrial fibrillation as I do not see any P waves Hemoglobin is low at 7.5 likely from acute bleeding. Transfusion ordered INR was ordered as well and this was elevated at 4.5. Because of this vitamin K was ordered and fresh frozen plasma Digoxin levels were also elevated and so DigiFab was ordered. Per up-to-date they recommend 10 vials which is 400 mg but we only had 240 mg so this was or dered. Her severe bradycardia is likely secondary to this and her other metabolic derangements At this point the rest of her laboratory came back and she is clearly elevated potassium and creatinine. She is in renal failure with major electrolyte issues requiring dialysis I discussed the situation with the patient and her daughter and informed him we would have to send her to [place] as she required blood products, urgent dialysis, cardiac care and ICU level care. The patient was quite distraught and did not want to go to [place] but we are unable to care for her here. The patient and her daughter had a discussion along with the patient's son and they decided that she would be hospice. She does not want to live any longer and she wants to be made DNR no interventions, comfort care. Social work did come and talk with her regarding palliative care and they made a plan to bring her in the hospital tonight so they could arrange for outpatient hospice. I did inform them that she could be treated but she definitely needed dialysis at this point along with multiple other interventions including blood transfusion; however after taking some time to think about it they affirmed their decision to do palliative care only. Case was discussed with hospitalist, Dr. Long, who agreed to accept the patient for palliative care/comfort care [facility]
[2019-04-01 13:42] LABS: Basophils # (Auto) 0 K/mcL (0.0-0.3); Basophils % (Auto) 0.1 % (0.0-2.0); Eosinophils # (Auto) 0 K/mcL (0.0-0.7); Eosinophils % (Auto) 0.2 % (0.0-7.0); Granulocytes % (Auto) 94.7 % (38.0-78.0); Hemoglobin 7.5 g/dL (12.0-15.0); Lymphocytes # (Auto) 0.4 K/mcL (1.5-4.8); Lymphocytes % (Auto) 3.6 % (15.5-49.0); Mean Cell Volume 94.8 fL (80.0-100.0); Mean Corpuscular HGB Conc 32.5 g/dL (31.0-36.0); Monocytes # (Auto) 0.2 K/mcL (0.1-0.9); Monocytes % (Auto) 1.4 % (1.0-12.0); Platelet Count 372 K/mcL (140-440); RBC 2.43 M/mcL (4.00-5.20); Red Cell Distribution Width 22.6 % (11.5-14.5); WBC 12.2 K/mcL (4.5-11.0)
--- NOTE | 2019-04-01 13:42 | XRay Report ---
CLINICAL INFORMATION: FALL COMPARISON: 03/28/2019, and 12/15/2018 FINDINGS: The heart is moderately enlarged - slightly increased. Mediastinum unremarkable. Pulmonary vessels are mildly distended and there is mild interstitial edema throughout both lungs. No infiltrates. Small right pleural effusion noted. IMPRESSION: Moderate CHF No posttraumatic change Interpreted and Authenticated by: Brett Martínez 04/01/19
[2019-04-01 14:00] LABS: INR 4.7 (0.9-1.1); Prothrombin Time 43.5 sec (11.9-14.5)
[2019-04-01] MEDS ORDERED: 0.9 % SODIUM CHLORIDE 250 ML IV SCH ×2 (14:00→14:45)
[2019-04-01 14:16] LABS: Digoxin 5.1 ng/mL
[2019-04-01 14:22] LABS: POC Blood Urea Nitrogen 118 mg/dl (8-23); POC CO2 26 mmol/L (22-30); POC Calcium, Ionized 1.04 mmol/L (1.16-1.32); POC Chloride 95 mmol/L (96-108); POC Creatinine 7.8 mg/dl (0.6-1.1); POC Glucose, Random 100 mg/dL (70-105); POC Potassium 6.8 mmol/L (3.3-5.1); POC Sodium 129 mmol/L (133-145)
[2019-04-01] MEDS ORDERED: DIGOXIN IMMUNE FAB IV ONE ×2 (14:36→15:15)
[2019-04-01] MEDS ORDERED: SODIUM CHLORIDE 0.9% IV ONE ×2 (14:36→15:15)
[2019-04-01] MEDS ORDERED: PHYTONADIONE 10 MG/ML AMPUL SQ ONE (14:40)
--- NOTE | 2019-04-01 14:54 | Cat Scan Report ---
CLINICAL INFORMATION: Trauma on anticoagulation COMPARISON: 12/13/2018 TECHNIQUE: 2.5 mm helical slices were obtained in the skull base to vertex. Following reconstruction, axial reformatted images were reviewed at bone and parenchymal windows. The exam was performed using radiation dose optimization techniques including, but not limited to, automated exposure control, adjustment of the mA and/or kV according to patient size and use of iterative reconstruction technique. FINDINGS: The ventricles, sulci, fissures, and cisterns are symmetrically enlarged compatible with mild age-related atrophy - no subdural hemorrhage or extra-axial fluid collection appreciated. Mild patchy chronic ischemic changes noted in the deep cerebral white matter are stable. Remote lacunar infarcts in the right basal ganglia seen - as before. There is no intracerebral hemorrhage, mass effect edema or other acute finding. Bone window shows no fracture or other osseous abnormality. A 16 mm calcified skin appendages in the parietal scalp near vertex is stable IMPRESSION: Mild atrophy with chronic ischemic changes in the deep cerebral white matter stable. A few remote lacunar infarcts in the right basal ganglia also stable No intracerebral hemorrhage or other acute posttraumatic change Interpreted and Authenticated by: Brett Martínez 04/01/19
[2019-04-01 15:02] LABS: ALT/SGPT 8 U/l (0-40); AST/SGOT 16 U/l (0-37); Albumin 3.7 gm/dL (3.2-5.2); Albumin/Globulin Ratio 1.2 (1.0-2.3); Alkaline Phosphatase 66 U/L (39-117); Bilirubin,Total 0.5 mg/dL (0.0-1.0); Blood Urea Nitrogen 103 mg/dl (8-23); Calcium 9.2 mg/dl (8.6-10.4); Carbon Dioxide 21 mmol/L (22-30); Chloride 91 mmol/L (96-108); Globulin 3.2 gm/dL (2.2-3.7); Glomerular Filtration Rate 6; Glucose 108 mg/dL (70-105)
--- NOTE | 2019-04-01 16:33 | Internal Med History&Physical ---
Medical - H&P: [facility] Patient information: Note initiated : 04/01/19 at 4:30 pm Service Date, if different from initiated Date: [] Patient: Mayra Blood a 73 y/o F admitted on for Fall. Chief Complaint: [] Chief complaint: Weakness, fall History of present illness: Ms. Blood is a 73 year old F morbidly obese with multiple comorbidities including obstructive sleep apnea for chronic hypercapnia, poorly controlled diabetes, CHF, COPD who presents to the ER with progressive weakness and after sustaining a fall today. She is accompanied with her daughter to the ER. Initial work-up was consistent with severe bradycardia/elevated digoxin level, change in mental status with ARF creatinine 7.8, hyperkalemia, GI bleed and severe uremia. Patient is nearly unresponsive and no history could be obtained in the ER. Most of the history was obtained from daughter. Given the patient critical status including hyperkalemia and digoxin toxicity bradycardia emergent tertiary center transfer was recommended by ER physician however family decided against aggressive intervention and expressed desire to keep Mayra comfortable until she passes away. Subsequently hospitalist service was consulted for admission for end-of-life care. At the time of evaluation patient is nearly unresponsive and barely opens eyes to verbal commands. No further history of examination was performed to avoid any discomfort to patient. Most of the history was obtained from review of medical records and ER physician. Review of systems Not performed in light of patient's comfort Medical - H&P: PMH Medical history: Non-healing open wound of toe (Chronic) Depression (Chronic) Hypercholesteremia (Chronic) Recurrent infections (Chronic) Rheumatic fever (Resolved) Sleep apnea (Chronic) Hiatal hernia (Chronic) KATY (obstructive sleep apnea) (Chronic) Right supraspinatus tendinitis (Chronic) Cellulitis (Chronic) Severe sepsis with acute organ dysfunction (Chronic) Diabetes follow-up (Chronic) Ankle fracture, right (Chronic) Low back strain (Chronic) Skin ulcer due to diabetes mellitus (Chronic) Restless leg syndrome (Chronic) Psoriasis (Chronic) Lung disease (Chronic) Hypertension, essential (Chronic) Hyperlipidemia (Chronic) Type 2 diabetes mellitus (Chronic) chronic foot and leg ulcerations Cystitides, interstitial, chronic (Chronic) Congestive heart failure (Chronic) Chronic obstruct airways disease (Chronic) Steroid dependent and oxygen dependent Atrial fibrillation (Chronic) Arthritis (Chronic) Anemia (Chronic) Acid reflux (Chronic) Anticoagulation excessive (Resolved) Chest pain (Resolved) Chronic bronchitis with acute exacerbation (Resolved) Hematuria of undiagnosed cause (Resolved) Hypercholesterolemia (Resolved) Surgical History History of dilation and curettage (Chronic) History of foot surgery (Chronic) History of tonsillectomy (Chronic) Family History Sister Malignant neoplasm of cervix Brother , in 2005 Chronic obstructive pulmonary disease Resulted in in 2005, along with Pulmonary Fibrosis Postinflammatory pulmonary fibrosis Resulted in in 2005 Schizophrenia Unknown Type 2 diabetes mellitus Cardiac disease Social History (Updated 03/22/19 @ 12:43 by Teddy Long MD) marital status: smoking status: Former smoker smoking status stop date: 08/17/06 alcohol intake frequency: holiday/special occasion only substance use type: does not use Reproductive History Menstrual Total pregnancies: 5 Full term: 3 Multiples: 0 Medical - H&P: Meds Home Medications Medication Instructions Recorded Confirmed Type blood sugar diagnostic 1 strip .ROUTE QIDP PRN 11/01/14 03/22/19 History lancets 1 unit .ROUTE .MEDSUPPLY 11/01/14 03/22/19 History oxygen-air delivery systems 5 units INTRANASAL .MEDSUPPLY 11/01/14 03/22/19 History Insulin Detemir [Levemir] 15 units SC QAM 01/17/15 03/22/19 History front wheeled walker #1 each 03/05/15 03/22/19 Rx Power Mobility WC #1 each 04/03/15 03/22/19 Rx atenolol 25 mg tablet 25 mg PO QDAY #90 tab 07/06/15 03/22/19 Rx blood sugar diagnostic See Dose Instructions .ROUTE 10/05/15 03/22/19 Rx .MEDSUPPLY #100 each mometasone 0.1 % topical ointment 1 applic TOPICAL QDAY #45 g 04/01/16 03/22/19 Rx nebulizer #1 each 04/04/16 03/22/19 Rx allopurinol 300 mg tablet 300 mg PO QHS #90 tab 06/29/17 03/22/19 Rx bupropion HCl 150 mg tablet,12 hr 150 mg PO BID #180 tab 06/29/17 03/22/19 Rx sustained-release pramipexole 0.125 mg tablet 0.125 mg PO QDAY #90 tab 06/29/17 03/22/19 Rx pravastatin 10 mg tablet 10 mg PO QDAY #90 tab 06/29/17 03/22/19 Rx spironolactone 25 mg tablet 25 mg PO BID #180 tab 06/29/17 03/22/19 Rx digoxin 250 mcg (0.25 mg) tablet 250 mcg PO QDAY #90 tab 10/27/17 03/22/19 Rx coal tar 2 % topical ointment 1 applic TOPICAL QDAY #107 g 02/01/18 03/22/19 Rx nystatin 100,000 unit/gram topical 1 applic TOPICAL BID PRN #15 each 02/01/18 03/22/19 Rx powder pilocarpine HCl 5 mg tablet 5 mg PO TID #90 tab 02/03/18 03/22/19 Rx carbidopa 25 mg-levodopa 100 mg 1 tab PO QHS #90 tab 04/23/18 03/22/19 Rx tablet levothyroxine 125 mcg tablet 125 mcg PO QDAY #90 tab 04/23/18 03/22/19 Rx losartan 100 1 tab PO QDAY #90 tab 04/23/18 03/22/19 Rx mg-hydrochlorothiazide 25 mg tablet metoclopramide HCl 10 mg tablet 10 mg PO BID #180 tab 04/23/18 03/22/19 Rx pantoprazole 40 mg tablet,delayed 40 mg PO QDAY #90 tab 04/23/18 03/22/19 Rx release Disabled parking permit #1 ea 04/29/18 03/22/19 Rx empagliflozin 25 mg tablet 25 mg PO QAM #90 tab 04/29/18 03/22/19 Rx insulin lispro 100) 100 unit/mL See Rx Instructions SUB-Q .COMPLEX 04/29/18 03/22/19 Rx subcutaneous pen #105 ml methotrexate sodium 5 mg tablet 15 mg PO QWEEK tab 04/29/18 03/22/19 History albuterol sulfate 1.25 mg/3 mL 1.25 mg INHALATION Q6-8H vial 03/22/19 History solution for nebulization ferrous gluconate 225 mg (27 mg PO BID tab 03/22/19 History iron) tablet fluticasone furoate 100 1 inh INHALATION BID each 03/22/19 03/22/19 History mcg/actuation blister powder for inhalation furosemide 20 mg tablet 20 mg PO QAM tab 03/22/19 History hydrocodone 5 mg-acetaminophen 325 1 tab PO Q4H PRN tab 03/22/19 03/22/19 History mg tablet insulin glargine 100 unit/mL (3 15 unit SUB-Q .COMPLEX ml 03/22/19 History mL) subcutaneous pen magnesium hydroxide 400 mg/5 mL 30 ml PO QDAY PRN ml 03/22/19 03/22/19 History oral suspension prednisone 10 mg tablet 10 mg PO .QOD tab 03/22/19 03/22/19 History warfarin 1 mg tablet 3 mg PO .2xw tab 03/22/19 03/22/19 History warfarin 6 mg tablet 6 mg PO .5xw tab 03/22/19 03/22/19 History Allergies Allergy/AdvReac Type Severity Reaction Status Date / Time Erythromycin Base AdvReac Mild Nausea Verified 04/01/19 12:47 [From Erythrocin] Medical - H&P: Exam - Constitutional Vitals: Temp Pulse Resp BP Pulse Ox 98.4 F 34 L 14 141/41 99 04/01/19 12:47 04/01/19 14:47 04/01/19 14:47 04/01/19 14:47 04/01/19 13:47 Exam: Patient nearly unresponsive However comfortable Further examination deferred to avoid discomfort to patient No anxiety agitation Medical - H&P: Reslt - Labs CBC & Chem 7: 04/01/19 13:25 04/01/19 13:22 Labs: Short CBC 04/01/19 Range/Units 13:25 WBC 12.2 H (4.5-11.0) K/mcL Hgb 7.5 L (12.0-15.0) g/dL Hct 23.0 L (36.0-48.0) % Plt Count 372 (140-440) K/mcL BMP 04/01/19 13:22 Sodium 132 L Potassium 6.7 H* Chloride 91 L Carbon Dioxide 21 L BUN 103 H* Creatinine 6.8 H* Glucose 108 H Calcium 9.2 Liver Function 04/01/19 Range/Units 13:22 Total Bilirubin 0.5 (0.0-1.0) mg/dL AST 16 (0-37) U/l ALT 8 (0-40) U/l Alkaline Phosphatase 66 (39-117) U/L Albumin 3.7 (3.2-5.2) gm/dL Medical - H&P: A/P (1) Acute renal failure Current visit: Yes Status: Acute * Acute renal failure -creatinine 7.8 * critical hyperkalemia -potassium 6.8 * Acute decompensated heart failure on chest imaging. * Acute hypoxic hypercapnic respiratory failure * digoxin toxicity with bradycardia. * GI bleed-upper GI bleed with hematemesis * Blood loss anemia-hemoglobin down to 7.5 * Mental status change likely uremic encephalopathy with BUN 118 * Supratherapeutic INR INR 4.7 * Critically ill imminent Plan * Inpatient admission * Goals of care conference * Patient critically ill Swisher 2 score of 22, imminent in the next few days * Continue end-of-life care
[2019-04-01] MEDS ORDERED: IPRATROPIUM/ALBUTEROL 3 ML AMPUL.NEB NEB PRN (17:12)
[2019-04-01] MEDS ORDERED: HYDROmorphone 2 MG/ML VIAL IV PRN (17:12)
[2019-04-01] MEDS ORDERED: ALBUTEROL SULFATE 2.5 MG/3 ML NEBULIZER NEB PRN (17:12)
[2019-04-01] MEDS ORDERED: ACETAMINOPHEN 650 MG/65 ML BOTTLE IV PRN (17:12)
[2019-04-01] MEDS ORDERED: 0.9 % SODIUM CHLORIDE 1,000 ML IV SCH (17:12)
[2019-04-01] MEDS ORDERED: ACETAMINOPHEN 325 MG TABLET PO PRN (17:12)
[2019-04-01] MEDS ORDERED: ONDANSETRON 4 MG/2 ML VIAL IV PRN (17:12)
[2019-04-01] MEDS ORDERED: LORazepam 2 MG/ML VIAL ONE (17:36)
[2019-04-01] MEDS: 0.9 % SODIUM CHLORIDE 10 ML SYRINGE IV SCH (20:15)
[2019-04-01] MEDS: DOCUSATE SODIUM 100 MG CAPSULE PO SCH (20:15)
[2019-04-02] MEDS: LORazepam 2 MG/ML VIAL IV PRN ×5 (00:38→20:12)
[2019-04-02] MEDS: 0.9 % SODIUM CHLORIDE 10 ML SYRINGE IV SCH ×3 (05:51→21:05)
[2019-04-02] MEDS: DOCUSATE SODIUM 100 MG CAPSULE PO SCH ×2 (08:02→21:05)
[2019-04-02] MEDS: 0.9 % SODIUM CHLORIDE 1,000 ML IV SCH ×2 (09:33→20:11)
--- NOTE | 2019-04-02 09:50 | Internal Med Progress Note ---
Medical - PN: Subj Patient information: Note initiated : 04/02/19 at 9:47 am Service Date, if different from initiated Date: [] Patient: Mayra Blood a 73 y/o F admitted on 04/01/19 for Fall. Chief Complaint: [] Interval history: Ms. Blood is a 73 year old F morbidly obese with multiple comorbidities including obstructive sleep apnea for chronic hypercapnia, poorly controlled diabetes, CHF, COPD who presents to the ER with progressive weakness and after sustaining a fall today. She is accompanied with her daughter to the ER. Initial work-up was consistent with severe bradycardia/elevated digoxin level, change in mental status with ARF creatinine 7.8, hyperkalemia, GI bleed and severe uremia. Patient is nearly unresponsive and no history could be obtained in the ER. Most of the history was obtained from daughter. Given the patient critical status including hyperkalemia and digoxin toxicity bradycardia emergent tertiary center transfer was recommended by ER physician however family decided against aggressive intervention and expressed desire to keep Mayra comfortable until she passes away. Subsequently hospitalist service was consulted for admission for end-of-life care. At the time of evaluation patient is nearly unresponsive and barely opens eyes to verbal commands. No further history of examination was performed to avoid any discomfort to patient. Most of the history was obtained from review of medical records and ER physician. 04/02-patient on end-of-life care. Multiple family members at bedside. Appears comfortable. No overnight fever chills. No other concerns expressed by nursing staff. Family would like to continue hydration. - Constitutional Vitals: Vital Signs Temp Pulse Resp BP Pulse Ox 98.2 F 36 L 24 H 113/26 91 04/02/19 07:38 04/02/19 07:00 04/02/19 07:38 04/02/19 07:38 04/02/19 07:38 Period Temp Pulse Resp BP Sys/Jacobson Pulse Ox Last 24 Hr 97.1 F-98.4 F 31-98 14-24 113-158/26-115 87-100 Intake and Output 04/01/19 04/02/19 04/02/19 21:59 05:59 13:59 Intake Total 500 0 785 Output Total 350 Balance 500 0 435 Weight 250 lb 4.8 oz Intake & Output: Intake & Output 04/01/19 04/02/19 04/02/19 21:59 05:59 13:59 Intake Total 500 0 785 Output Total 350 Balance 500 0 435 Weight 250 lb 4.8 oz Intake: IV 500 785 Sodium Chloride 0.9% 1,000 ml @ 785 50 mls/hr IV .Q20H [facility] Rx#: [id number] Sodium Chloride 0.9% 500 ml @ 500 Wide Open IV .Q0M ONE Rx#: [id number] Oral 0 Output: Urine Catheter Amount 350 Uretheral (Fernandez) 350 Other: Urine Appearance Uretheral (Fernandez) Clear Urine Color Uretheral (Fernandez) Light Viktoria Stool Size Smear Stool Color Brown General appearance: morbidly obese Exam: No anxiety agitation General exam deferred Medical - PN: Obj Da - Labs CBC & Chem 7: 04/01/19 13:25 04/01/19 13:22 Labs: Abnormal Lab Results 04/01/19 04/01/19 04/01/19 13:42 13:25 13:25 WBC 12.2 H RBC 2.43 L Hgb 7.5 L Hct 23.0 L POC Hct 26.0 L RDW 22.6 H Gran % 94.7 H Lymph % (Auto) 3.6 L Gran # 11.6 H Lymph # (Auto) 0.4 L PT INR VBG Lactic Acid 2.1 H POC Sodium 129 L Sodium POC Potassium 6.8 H* Potassium POC Chloride 95 L Chloride Carbon Dioxide Anion Gap POC BUN 118 H* BUN Creatinine POC Creatinine 7.8 H* Glucose POC WB Ioniz Calcium 1.04 L Magnesium Digoxin 04/01/19 04/01/19 04/01/19 13:23 13:22 13:22 WBC RBC Hgb Hct POC Hct RDW Gran % Lymph % (Auto) Gran # Lymph # (Auto) PT 43.5 H INR 4.7 H VBG Lactic Acid POC Sodium Sodium 132 L POC Potassium Potassium 6.7 H* POC Chloride Chloride 91 L Carbon Dioxide 21 L Anion Gap 20.0 H POC BUN BUN 103 H* Creatinine 6.8 H* POC Creatinine Glucose 108 H POC WB Ioniz Calcium Magnesium 4.0 H* Digoxin 5.1 H* Meds: Medications Acetaminophen (Tylenol) 650 mg PO Q4-6HP PRN; Protocol PRN Reason: Per Pain Protocol/Fever > 101 Albuterol Sulfate (Ventolin) 2.5 mg NEB Q2HP PRN PRN Reason: Shortness Of Breath Albuterol/Ipratropium (Duoneb) 3 ml NEB Q4HP PRN PRN Reason: Shortness Of Breath Docusate Sodium (Colace) 100 mg PO BID [facility] Last Admin: 04/02/19 08:02 Dose: Not Given Documented by: Hydromorphone HCl (Dilaudid) 0 mg IV Q2HP PRN PRN Reason: Pain Last Admin: 04/02/19 01:06 Dose: 0.5 mg Documented by: Acetaminophen (Ofirmev) 650 mg in 65 mls @ 130 mls/hr IV Q6HP PRN; Protocol PRN Reason: Per Pain Protocol/Fever > 101 Sodium Chloride (Sodium Chloride 0.9%) 1,000 mls @ 20 mls/hr IV .Q24H [facility] Stop: 04/08/19 15:17 Last Admin: 04/02/19 09:33 Dose: Not Given Documented by: Lorazepam (Ativan) 0 mg IV Q1HP PRN; Protocol PRN Reason: ANXIETY/SEDATION Last Admin: 04/02/19 09:27 Dose: 2 mg Documented by: Morphine Sulfate (Morphine) 4 mg NEB Q4HP PRN PRN Reason: Shortness Of Breath Last Admin: 04/02/19 05:22 Dose: 4 mg Documented by: Morphine Sulfate (Morphine) 5 mg IV Q1HP PRN; Protocol PRN Reason: Shortness Of Breath Ondansetron HCl (Zofran) 4 mg IV Q4-6HP PRN; Protocol PRN Reason: Nausea And Vomiting Sodium Chloride (Saline Flush) 10 ml IV Q8 [facility] Last Admin: 04/02/19 05:51 Dose: Not Given Documented by: Medical - PN: A/P - Time Spent With Patient Total time spent is greater than 50% in coordination of care (as documented) at patient's floor/unit and/or counseling patient: 15 - 24 minutes (1) Acute renal failure Status: Acute Assessment and plan: * End-of-life care, continue as needed opioid/benzodiazepine and antiemetics for aggressive pain and symptom management. Patient is critically ill due to multiple life-threatening events as below * Acute renal failure -creatinine 7.8 * critical hyperkalemia -potassium 6.8 * Acute decompensated heart failure on chest imaging. * Acute hypoxic hypercapnic respiratory failure * Digoxin toxicity with bradycardia. * GI bleed-upper GI bleed with hematemesis * Blood loss anemia-secondary to GI bleed * Mental status change likely uremic encephalopathy with BUN 118 * Supratherapeutic INR INR 4.7 Plan * Continue end-of-life care with aggressive pain and symptom management * Patient critically ill Meigs 2 score of 22, imminent in the next few days Current Visit: Yes Medical - PN: Qual - Stroke Symptom Onset Unknown: No - VTE Deep Vein Thrombosis/Pulmonary Embolism Present on Admission: No
--- NOTE | 2019-04-03 11:25 | Death Note ---
Discharge Sum: Prov - Provider Patient information: Note initiated : 04/03/19 at 11:23 am Service Date, if different from initiated Date: [] Patient: Mayra Blood 73 y/o F admitted on 04/01/19 for Fall. Chief Complaint: [] Primary care physician: Alvin Guadarrama Consults: 04/01/19 16:26 Consult to Physician [CONS] Stat Comment: Consulting Provider: Yuri Jewell Reason For Exam: Physician to Consult 04/03/19 02:18 Consult to Physician [CONS] Routine Comment: Consulting Provider: Latasha,[facility] Reason For Exam: Physician to Consult 04/03/19 10:07 Consult to Physician [CONS] Routine Comment: organ procurement Consulting Provider: Latasha Reason For Exam: Physician to Consult Pronouncing clinician: Yuri Jewell Discharge Sum: Diag - PCOD Cause of : Cardiorespiratory arrest - Contributing Factors (1) Acute renal failure * Acute renal failure * Critical hyperkalemia * Acute becomes at heart failure * Digoxin toxicity with bradycardia * GI bleed * Hypoxic hypercapnic respiratory failure Discharge Sum: Summary - Date and Time Date of admission: 04/01/19 17:05 Date of : 04/03/19 Time of : 01:15 - Summary Details: Ms. Blood is a 73 year old F morbidly obese with multiple comorbidities including obstructive sleep apnea for chronic hypercapnia, poorly controlled diabetes, CHF, COPD who presents to the ER with progressive weakness and after sustaining a fall today. She is accompanied with her daughter to the ER. Initial work-up was consistent with severe bradycardia/elevated digoxin level, change in mental status with ARF creatinine 7.8, hyperkalemia, GI bleed and severe uremia. Patient is nearly unresponsive and no history could be obtained in the ER. Most of the history was obtained from daughter. Given the patient critical status including hyperkalemia and digoxin toxicity bradycardia emergent tertiary center transfer was recommended by ER physician however family decided against aggressive intervention and expressed desire to keep Mayra comfortable until she passes away. Subsequently hospitalist service was consulted for admission for end-of-life care. At the time of evaluation patient is nearly unresponsive and barely opens eyes to verbal commands. No further history of examination was performed to avoid any discomfort to patient. Most of the history was obtained from review of medical records and ER physician. 04/02-patient on end-of-life care. Multiple family members at bedside. Appears comfortable. No overnight fever chills. No other concerns expressed by nursing staff. Family would like to continue hydration. 04/03-patient succumbed to cardiorespiratory arrest in the setting of hypoxic hypercarbic respiratory failure, acute renal failure, hyperkalemia and digoxin toxicity. Patient was continued on palliative measures and at 1:15 AM. Family members were informed. home informed - Additional Data Attending physician: Yuri Jewell
== END 2019-04-03 10:15 | disposition expired | DRG 189 ==
LOC: ED 12:47 → MEDSUR 17:00
PROVIDERS: ADMIT Internal Medicine; ATTEND Internal Medicine